=== PATIENT | male | born 1975 | race Caucasian/White ===

== ENCOUNTER → 2022-02-15 | Outpatient (CLI) | payer MEDICARE, SELFPAY ==
[2022-02-15 17:43] LABS: Amphetamine Urine VISTA NEGATIVE (<1000 ng/mL); Barbiturate Urine VISTA NEGATIVE (< 200 ng/mL); Benzodiazepine Urine VISTA NEGATIVE (< 200 ng/mL); Cocaine Urine VISTA NEGATIVE (< 300 ng/mL); Ecstacy Urine VISTA NEGATIVE (< 500 ng/mL); Methadone Urine VISTA NEGATIVE (< 300 ng/mL); PCP Urine VISTA NEGATIVE (< 25 ng/mL); THC Urine VISTA NEGATIVE (< 50 ng/mL); Vista UDS pH Range 7
== END | disposition home or self-care (01) ==
PROVIDERS: PCP Family Medicine; Visit Provider Anesthesiology Pain Medicine
DX: F11.20 Opioid dependence, uncomplicated (principal)
CPT/HCPCS: 80307

== ENCOUNTER → 2022-10-30 | Outpatient (CLI) | payer MEDICARE, SELFPAY ==
[2022-10-30 17:54] LABS: Amphetamine Urine VISTA NEGATIVE (<1000 ng/mL); Barbiturate Urine VISTA NEGATIVE (< 200 ng/mL); Benzodiazepine Urine VISTA NEGATIVE (< 200 ng/mL); Cocaine Urine VISTA NEGATIVE (< 300 ng/mL); Ecstacy Urine VISTA NEGATIVE (< 500 ng/mL); Methadone Urine VISTA NEGATIVE (< 300 ng/mL); PCP Urine VISTA NEGATIVE (< 25 ng/mL); THC Urine VISTA NEGATIVE (< 50 ng/mL); Vista UDS pH Range 4
== END | disposition home or self-care (01) ==
PROVIDERS: PCP Family Medicine; Referring Provider Anesthesiology Pain Medicine; Visit Provider Anesthesiology Pain Medicine
DX: F11.20 Opioid dependence, uncomplicated (principal)
CPT/HCPCS: 80307

== ENCOUNTER → 2024-01-31 | Outpatient (CLI) | payer MEDICARE, SELFPAY ==
[2024-01-31 19:03] LABS: Amphetamine Urine VISTA NEGATIVE (<1000 ng/mL); Barbiturate Urine VISTA NEGATIVE (< 200 ng/mL); Benzodiazepine Urine VISTA NEGATIVE (< 200 ng/mL); Cocaine Urine VISTA NEGATIVE (< 300 ng/mL); Ecstacy Urine VISTA NEGATIVE (< 500 ng/mL); Methadone Urine VISTA NEGATIVE (< 300 ng/mL); PCP Urine VISTA NEGATIVE (< 25 ng/mL); THC Urine VISTA NEGATIVE (< 50 ng/mL); Vista UDS pH Range 6
== END | disposition home or self-care (01) ==
PROVIDERS: PCP Family Medicine; Referring Provider Anesthesiology Pain Medicine; Visit Provider Anesthesiology Pain Medicine
DX: F11.20 Opioid dependence, uncomplicated (principal)
CPT/HCPCS: 80307

== ENCOUNTER 2025-06-01 15:15 | Outpatient (RCR) | payer MEDICARE, MEDICAID, SELFPAY ==
[2025-05-11 14:23] VITALS: BP 144/97; PULSE 106; RESP 18; TEMP 36.1
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
--- NOTE | 2025-05-13 09:39 | WC ---
PHOTO-COCCYX 05/11/25
--- NOTE | 2025-05-13 09:41 | WC ---
PHOTO-RIGHT ISCHIUM 05/11/25
[2025-06-01 15:22] VITALS: BP 120/89; PULSE 98; RESP 18; TEMP 36.3
[2025-06-01 17:26] LABS: Hematocrit 29.2 % (40-54); Hemoglobin 9.1 g/dL (13.0-16.5); Immature Granulocytes Count 0.040 X10^3/uL (0.0-0.0); Mean Corp Hgb Conc 31.2 g/dL (32-36); Mean Corpuscular Volume 75.8 fL (80-94); Mean Platelet Vol. 10.7 fl (6.2-12.0); NRBC Flagged by Analyzer 0 % (0-5); Platelet Count 603 K/mm3 (150-450); RBC Distribution Width CV 17.1 % (11.6-14.6); RBC Distribution Width SD 46.6 fl (35.1-43.9); Red Blood Count 3.85 M/mm3 (4.6-6.2); White Blood Count 9.8 K/mm3 (4.4-11.0)
[2025-06-01 18:26] LABS: AST(SGOT) 39 U/L (<=37); Alanine Aminotransfer ALT/SGPT 51 U/L (<=46); Albumin, Serum 3.4 g/dL (3.5-5.0); Alkaline Phosphatase 108 U/L (40-129); Anion Gap 14 (5-15); BUN 9 mg/dL (4-19); BUN/Creat Ratio 13.6 RATIO (10-20); Calcium,Total 8.6 mg/dL (7.6-11.0); Carbon Dioxide 21.7 mmol/L (21.0-32.0); Chloride 106 mmol/L (98-108); Estimated Creatinine Clearance 13.62 ml/min (50-250); Globulin 4.8 g/dL (2.2-4.2); Glucose 115 mg/dL (70-99); Potassium 4.4 mmol/L (3.3-5.1)
--- NOTE | 2025-06-02 13:31 | WC ---
Per Dr Alejandro, patient is to be notified that his blood work is good and that patient needs to notify PCP for medical clearance for surgery and then Dr Alejandro will get him on the surgical schedule. Patient notified and was thrilled to hear this. He verbalized understanding and will call the PCP office. Advised him if he has any further questions, to call our office.
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
[2025-06-03 07:07] LABS: Prealbumin 12 mg/dL (10-36)
== END 2025-06-02 23:59 | disposition home or self-care (01) ==
LOC: WC 15:15
PROVIDERS: PCP Internal Medicine; Referring Provider Internal Medicine; Visit Provider Surgery Plastic and Reconstructive Surgery
DX: L89.154 Pressure ulcer of sacral region, stage 4 (principal); L89.214 Pressure ulcer of right hip, stage 4; G82.20 Paraplegia, unspecified; D63.8 Anemia in other chronic diseases classified elsewhere
CPT/HCPCS: 36415; 80053; 83036; 84134; 85025; 99214; G0463

== ENCOUNTER → 2025-06-04 | Outpatient (CLI) | payer MEDICARE, MEDICAID, SELFPAY ==
[2025-06-04 16:10] LABS: Barbiturate Urine NEGATIVE (< 200 ng/mL); Benzodiazepine Urine NEGATIVE (< 200 ng/mL); PCP Urine NEGATIVE (< 25 ng/mL); THC Urine PRESUMPTIVE POSITIVE (< 50 ng/mL)
== END | disposition home or self-care (01) ==
LOC: LAB 14:55
PROVIDERS: PCP Internal Medicine; Referring Provider Anesthesiology Pain Medicine; Visit Provider Anesthesiology Pain Medicine
DX: F11.20 Opioid dependence, uncomplicated (principal)
CPT/HCPCS: 80307

== ENCOUNTER 2025-06-08 14:21 | Outpatient (RCR) | payer MEDICARE, MEDICAID, SELFPAY ==
[2025-06-08 14:59] VITALS: BP 138/118; PULSE 108; RESP 16; TEMP 36.1
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
--- NOTE | 2025-06-09 11:23 | WC ---
PHOTO-RIGHT ISCHIUM 06/08/25
--- NOTE | 2025-06-09 11:26 | WC ---
PHOTO-COCCYX 06/08/25
== END 2025-07-03 23:59 | disposition home or self-care (01) ==
LOC: WC 14:21
PROVIDERS: PCP Internal Medicine; Referring Provider Internal Medicine; Visit Provider Surgery Plastic and Reconstructive Surgery
DX: L89.304 Pressure ulcer of unspecified buttock, stage 4 (principal); G82.20 Paraplegia, unspecified; L98.429 Non-pressure chronic ulcer of back with unspecified severity; D63.8 Anemia in other chronic diseases classified elsewhere
CPT/HCPCS: 99213; G0463

== ENCOUNTER 2025-07-06 08:02 | Inpatient (IN) | payer MEDICARE, MEDICAID, SELFPAY ==
--- NOTE | 2025-06-26 16:54 | PAT.ANESEVAL ---
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 When Was Last Pacemaker Check QUESTION #4 FULL TEXT: You/Your Family Experience fever (hyperthermia) with Anesthesia Last Oral Intake Last Oral intake: Last Oral Intake NPO since Meds taken in AM with sips of water? Meds patient instructed to take am of surgery PONV PONV - correctional lieutenant: PONV - correctional lieutenant Female No 06/26/25 09:09 HX of Motion Sickness Yes 06/26/25 09:09 HX of N/V After Surgery Yes 06/26/25 09:09 Non-Smoker Yes 06/26/25 09:09 Duration of Surgery greater Yes 06/26/25 09:09 than 60 minutes Number of Risk Factors 4 06/26/25 09:09 PONV Score Severe Risk 06/26/25 09:09 Height & Weight Height & Weight: Anesthesia: Height & Weight Height 5 ft 9 in 05/11/25 14:23 Respiratory Assessment Respiratory Assessment - correctional lieutenant: Respiratory Tract Infection Hx - correctional lieutenant Hx Respiratory Tract Infection No 06/26/25 09:09 STOP Sleep Apnea STOP Sleep Apnea - correctional lieutenant: STOP Sleep Apnea - correctional lieutenant Hx Hypertension Yes: PER PT, CONTROLLED ON 06/26/25 09:09 MED Hx Sleep Apnea No 06/26/25 09:09 CPAP BIPAP Do you snore loudly (louder Yes 06/26/25 09:09 than talking or can be heard Do you often feel tired/ No 06/26/25 09:09 fatigued/ sleepy during daytime? Has anyone observed you stop No 06/26/25 09:09 breathing during sleep? STOP Results Positive 06/26/25 09:09 QUESTION #5 FULL TEXT : Do you snore loudly (louder than talking or can be heard through closed doors)? 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 Specify any problems Hx of Preganancy in last 3 N/A 06/26/25 09:09 Months Nurse Filling Out Transfusion MGRIFFITH 06/26/25 09:09 & Questions: Date: 06/26/25 06/26/25 09:09 Time: 09:15 06/26/25 09:09 Patient unable to answer at this time (ie. confused, unrespo /Reproduction History /Reproductive History - correctional lieutenant: /Reproductive Hx- correctional lieutenant Hx Now Gestational Age (in weeks): EDC: Hx Hx Para Hx Section SAB PFSH Medical History (Updated 06/26/25 @ 09:23 by Mary Ann Lopez) Wears glasses History of Clostridium difficile infection Uses wheelchair Indwelling urethral catheter present Injury of back History of seizures Gastric reflux Non-smoker Hypertension Home Medications ?Medication ?Instructions ?Recorded ?Last Taken ?Type baclofen 20 mg tablet 20 mg PO 4X/DAY 05/11/25 Unknown History gabapentin 600 mg tablet 1,200 mg PO TID 05/11/25 Unknown History hydroxyzine HCl 25 mg tablet 50 mg PO 4X/DAY PRN PRN anxiety 05/11/25 Unknown History oxycodone myristate 13.5 mg 13.5 mg PO Q12H pain 05/11/25 Unknown History capsule sprinkle extend release 12hr(DON'T CRUSH) (Xtampza ER) verapamil 120 mg tablet 120 mg PO DAILY 06/26/25 Unknown History Allergy/AdvReac Type Severity Reaction Status Date / Time adhesive tape Allergy Other Verified 06/26/25 09:03 morphine Allergy Other Verified 06/26/25 09:03 venlafaxine (From Effexor) Allergy Other Verified 06/26/25 09:03 Surgical History (Updated 06/26/25 @ 09:09 by Mary Ann Lopez) History of surgery History of tonsillectomy and adenoidectomy History of appendectomy History of spinal surgery History of amputation of right foot Social History Smoking Status: Never smoker Audit: Pertinent Findings Pertinent Findings Additional pertinent findings: June 01, 2025. Hemoglobin 9.1. Recommendation Anesthesia Recommendation Anesthesia recommendation: OPTIMIZED for anesthesia
[2025-07-02 14:06] LABS: Hematocrit 32.0 % (40-54); Hemoglobin 9.9 g/dL (13.0-16.5); Mean Corp Hgb Conc 30.9 g/dL (32-36); Mean Corpuscular Volume 76.6 fL (80-94); Mean Platelet Vol. 9.9 fl (6.2-12.0); Platelet Count 704 K/mm3 (150-450); RBC Distribution Width CV 19.1 % (11.6-14.6); RBC Distribution Width SD 52.3 fl (35.1-43.9); Red Blood Count 4.18 M/mm3 (4.6-6.2); White Blood Count 11.1 K/mm3 (4.4-11.0)
[2025-07-02 14:46] LABS: AST(SGOT) 20 U/L (<=37); Alanine Aminotransfer ALT/SGPT 21 U/L (<=46); Albumin, Serum 3.1 g/dL (3.5-5.0); Alkaline Phosphatase 103 U/L (40-129); Anion Gap 14 (5-15); BUN 10 mg/dL (4-19); BUN/Creat Ratio 12.8 RATIO (10-20); Calcium,Total 9.1 mg/dL (7.6-11.0); Carbon Dioxide 21.5 mmol/L (21.0-32.0); Chloride 100 mmol/L (98-108); Globulin 5.0 g/dL (2.2-4.2); Glucose 131 mg/dL (70-99); Potassium 3.3 mmol/L (3.3-5.1)
[2025-07-06] VITALS (18 sets, daily range): BP systolic 94–171; BP diastolic 73–119; PULSE 75–100; RESP 16–17; TEMP 35.8–37.4; O2SAT 93–100; BMI 25.8
--- NOTE | 2025-07-06 08:48 | PRE.ANES_ITS ---
ASA Classification* ASA Classification ASA Classification: 3 Assessment & Plan Anesthesia* Anesthesia Assessment Anesthesia Assessment: Discussed sedation and/or anesthesia options, risks, benefits, and alternatives with patient/parents/legal guardian/POA. Questions invited. The patient/parents/legal guardian/POA seems to understand and agrees to proceed with anesthesia plan. Reviewed the physical assessment, medical history, allergy history and patient home medications list prior to surgery/procedure/anesthetic and documented any changes. Performed airway and anesthesia risk assessments. Anesthesia Type Anesthesia Type: General (no sux. paraplegia) Anesthesia Focused Assessment* Airway Assessment Mouth opens: >3 cm Mallampati Score: II Labs Anesthesia Preop lab: CBC WBC, (4.4-11.0) 11.1 K/mm3 H 07/02/25, 13:31 RBC, (4.6-6.2) 4.18 M/mm3 L 07/02/25, 13:31 Hgb, (13.0-16.5) 9.9 g/dL L 07/02/25, 13:31 Hct, (40-54) 32.0 % L 07/02/25, 13:31 Plt Count, (150-450) 704 K/mm3 H 07/02/25, 13:31 CHEMISTRY Potassium, (3.3-5.1) 3.3 mmol/L 07/02/25, 13:31 Sodium, (133-145) 136 mmol/L 07/02/25, 13:31 BUN, (4-19) 10 mg/dL 07/02/25, 13:31 Creatinine, (0.70-1.20) 0.75 mg/dL 07/02/25, 13:31 Glucose, (70-99) 131 mg/dL H 07/02/25, 13:31 COAG Pre-Assessment Diagnosis/Proposed Procedure Planned Operative Procedure(s): (N/A) Debridement of sacral and right ischial wound with wound vac placement, Stage 1 Anesthesia History 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 When Was Last Pacemaker Check QUESTION #4 FULL TEXT: You/Your Family Experience fever (hyperthermia) with Anesthesia Last Oral Intake Last Oral intake: Last Oral Intake NPO since Meds taken in AM with sips of water? Meds patient instructed to take am of surgery PONV PONV - machine cloth trimmer: PONV - machine cloth trimmer Female No 06/26/25 09:09 HX of Motion Sickness Yes 06/26/25 09:09 HX of N/V After Surgery Yes 06/26/25 09:09 Non-Smoker Yes 06/26/25 09:09 Duration of Surgery greater Yes 06/26/25 09:09 than 60 minutes Number of Risk Factors 4 06/26/25 09:09 PONV Score Severe Risk 06/26/25 09:09 Height & Weight Height & Weight: Anesthesia: Height & Weight Height 5 ft 9 in 05/11/25 14:23 Respiratory Assessment Respiratory Assessment - machine cloth trimmer: Respiratory Tract Infection Hx - machine cloth trimmer Hx Respiratory Tract Infection No 06/26/25 09:09 STOP Sleep Apnea STOP Sleep Apnea - machine cloth trimmer: STOP Sleep Apnea - machine cloth trimmer Hx Hypertension Yes: PER PT, CONTROLLED ON 06/26/25 09:09 MED Hx Sleep Apnea No 06/26/25 09:09 CPAP BIPAP Do you snore loudly (louder Yes 06/26/25 09:09 than talking or can be heard Do you often feel tired/ No 06/26/25 09:09 fatigued/ sleepy during daytime? Has anyone observed you stop No 06/26/25 09:09 breathing during sleep? STOP Results Positive 06/26/25 09:09 QUESTION #5 FULL TEXT : Do you snore loudly (louder than talking or can be heard through closed doors)? 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 Specify any problems Hx of Preganancy in last 3 N/A 06/26/25 09:09 Months Nurse Filling Out Transfusion MGRIFFITH 06/26/25 09:09 & Questions: Date: 06/26/25 06/26/25 09:09 Time: 09:15 06/26/25 09:09 Patient unable to answer at this time (ie. confused, unrespo /Reproduction History /Reproductive History - machine cloth trimmer: /Reproductive Hx- machine cloth trimmer Hx Now Gestational Age (in weeks): EDC: Hx Hx Para Hx Section SAB Active Medications Active Medications: Current Medications Generic Name Dose Route Start Last Admin Trade Name Freq PRN Reason Stop Dose Admin Enoxaparin Sodium 40 mg 07/06/25 10:00 Enoxaparin 40 Mg/0.4 Ml Syringe SC DAILY [facility] Cefazolin Sodium 2 gm/ Sodium 110 mls @ 200 mls/hr 07/06/25 10:30 Chloride IV 07/06/25 11:02 INTRAOP ONE Lactated Ringer's 1,000 mls @ 15 mls/hr 07/06/25 08:45 IV .Q48H DULCE PFSH Medical History Wears glasses History of Clostridium difficile infection Uses wheelchair Indwelling urethral catheter present Injury of back History of seizures Gastric reflux Non-smoker Hypertension Home Medications ?Medication ?Instructions ?Recorded ?Last Taken ?Type baclofen 20 mg tablet 20 mg PO 4X/DAY 05/11/25 Unk nown History gabapentin 600 mg tablet 1,200 mg PO TID 05/11/25 Unk nown History hydroxyzine HCl 25 mg tablet 50 mg PO 4X/DAY PRN PRN a nxiety 05/11/25 Unknown History oxycodone myristate 13.5 mg 13.5 mg PO Q12H pain 05/11 Unknown History capsule sprinkle extend release 12hr(DON'T CRUSH) (Xtampza ER) verapamil 120 mg tablet 120 mg PO DAILY 06/26/25 Unk nown History Allergy/AdvReac Type Severity Reaction Status Date / Time adhesive tape Allergy Other Verified 06/26/25 09:03 morphine Allergy Other Verified 06/26/25 09:03 venlafaxine (From Effexor) Allergy Other Verified 06/26/25 09:03 Surgical History History of surgery History of tonsillectomy and adenoidectomy History of appendectomy History of spinal surgery History of amputation of right foot Social History Smoking Status: Never smoker Review of Systems (Anesthesia) ROS Narrative System reviewed and no additional complaints, except as documented.
[2025-07-06] MEDS: Lactated Ringers 1,000 ML 15 ML IV (09:19)
--- NOTE | 2025-07-06 09:43 | HP.PCM_ITS ---
HPI - General HPI Narrative LUCIANA POWELL, is a 49 M who presents with right ischial wound and sacral wounds, stage 4. Current Encounter (DATE OF SURGERY H&P UPDATE): I saw and examined the patient this morning in pre-operative holding. We discussed risks and benefits of today's surgery and they would like to proceed. NO CHANGE in health history since last seen and evaluated. Ready to proceed with surgery. I reviewed MRI, osteo at both sites. FORMERLY [facility] Medical History Wears glasses History of Clostridium difficile infection Uses wheelchair Indwelling urethral catheter present Injury of back History of seizures Gastric reflux Non-smoker Hypertension Home Medications ?Medication ?Instructions ?Recorded ?Last Taken ?Type baclofen 20 mg tablet 20 mg PO 4X/DAY 05/11/25 Unk nown History gabapentin 600 mg tablet 1,200 mg PO TID 05/11/25 Unk nown History hydroxyzine HCl 25 mg tablet 50 mg PO 4X/DAY PRN PRN a nxiety 05/11/25 Unknown History oxycodone myristate 13.5 mg 13.5 mg PO Q12H pain 05/11 Unknown History capsule sprinkle extend release 12hr(DON'T CRUSH) (Xtampza ER) verapamil 120 mg tablet 120 mg PO DAILY 06/26/25 Unk nown History Allergy/AdvReac Type Severity Reaction Status Date / Time adhesive tape Allergy Other Verified 06/26/25 09:03 morphine Allergy Other Verified 06/26/25 09:03 venlafaxine (From Effexor) Allergy Other Verified 06/26/25 09:03 Surgical History History of surgery History of tonsillectomy and adenoidectomy History of appendectomy History of spinal surgery History of amputation of right foot Social History Smoking Status: Never smoker Vital Signs Vital Signs Vital Signs: 07/06/25 09:11 07/06/25 09:11 Temperature 97.3 F L Temperature Source Temporal Pulse Rate 99 Respiratory Rate 16 Respiratory Pattern Normal Blood Pressure 116/82 H Blood Pressure Mean 93 Blood Pressure Source Monitor Blood Pressure Position Semi-Fowlers Blood Pressure Location Right Arm Pulse Ox 99 Oxygen Delivery Method Room Air Weight Weight: 175 lb Body Mass Index (BMI) 25.8 Physical Exam Narrative Sacral wound and right ischial wounds , stage 4 Results Lab / Micro Data 07/02/25 13:31 07/02/25 13:31 Assessment & Plan Assessment/Plan (1) Decubitus ulcer of ischial area, stage 4: (2) Ulcer of sacral region, stage 4: PLAN: Plan I talked to the patient extensively about the risks of surgery, including bleeding, infection, damage to surrounding structures, poor scaring, surgical site dehiscence and wound formation, need for wound care, need for repeat operations, failure to obtain the desired result, DVT/PE, and the risks of anesthesia including , including stroke (from low blood pressure/ischemia or clot). The benefits and alternatives of this surgery were also discussed. All of their questions were answered, and they agreed to proceed with surgery. Plan for debridement with VAC placement
[2025-07-06] MEDS: Midazolam 2 MG/2 ML Syringe IV (09:51)
[2025-07-06] MEDS: Cefazolin 1 GM/5 ML Vial 2 GM IV (09:51)
[2025-07-06] MEDS: Lactated Ringers 1,000 ML 1000 ML IV (09:51)
[2025-07-06] MEDS: Lidocaine 1% (5 ml sdv) 5 ML Vial 8 ML IV (09:55)
--- NOTE | 2025-07-06 10:13 | OP.PCM_ITS ---
Operative Report (Standard) Operative Information Date of Procedure: 07/06/25 Pre-Operative Diagnosis: Sacral ulcer stage IV Right ischial ulcer stage IV Post-Operative Diagnosis: Same Surgery/Procedure Performed: Excision sacral ulcer stage IV, down to bone, 4 x 8 cm Excision right ischial ulcer, down to bone, stage IV, 4 x 3 cm Placement of irrigating wound VAC over the above-noted wounds mobile home technician: Yes Computer Security Specialist: Kati Bernardo Tasks completed by case management assistant: Retracting Type of Anesthesia: General/Supplemental (30 cc of 50-50 mixture 1% lidocaine with 1-200,000 epinephrine and quarter percent Marcaine with 1-200,000 epinephrine) RN Documented Start/Stop Times: Operation Date: 07/08/25 11:15 <No data on this case meets the specified criteria> Procedure Start Time: 10:23 Procedure Stop Time: 11:29 Select all DRAINS/GRAFTS/IMPLANTS that apply: None Estimated Blood Loss: 50 cc Specimen collected: Yes Description of specimen(s) removed: Sacral ulcer for pa thology, sacral deep soft tissue cultures, sacral bone culture, sacral bone for pathology Right ischial ulcer for pathology, right ischial deep soft tissue cultures, right ischial bone culture, right ischial bone for pathology Description of surgery: Indications: Patient is a 49-year-old male with paraplegia who has a right ischial stage IV wound and a sacral stage IV wound from pressure. He has been optimized medically and is ready for surgery. I talked him about the risks, benefits, and alternatives to debridement and placement of wound. Procedure details: Patient was correctly identified in preoperative holding and taken back to the operating room he was administered general anesthesia and flipped into the prone position where he was carefully padded and positioned with care taken to prevent pressure sores or injury to nerves or the face. A timeout was performed. He was prepped and draped in sterile fashion. Methylene blue was used to dye the wound beds. The above-noted local solution was injected and given time to take effect. 10 blade scalpel was used to excise around the wounds and a rongeur was used to debride the base of the wounds. The sacral wound undermining was accessed through a previous rotation flap incision scar on the right side, with plan to re-elevate that flap for reconstruction at the next stage. The wounds were sent for pathology. Deep soft tissue cultures were taken with clean rongeur, as well as bone cultures and bone pathology with a clean rongeur. The total debridement with the tools was 8 x 8 cm for the sacral and and 4 x 3 cm for the right ischial wound. Both wounds were down to bone. The wounds were then irrigated with copious amounts normal saline and Irrisept. Hemostasis was obtained with Bovie electrocautery. An irrigating wound VAC was applied. Postoperative plan: Patient will be admitted for infectious disease consultation and empiric IV antibiotics. We will follow-up wound cultures and curtail antibiotics as needed. He will be on a pressure offloading bed. Plan for return to the operating room in 2 days for closure of the wounds (08 July 2025). Surgical Findings: Both wounds down to bone with necrotic bone at the base Complications Complications: No
[2025-07-06] MEDS: fentaNYL 100 MCG/2 ML Ampul IV (10:19)
[2025-07-06] MEDS: Bupiv/Epi 0.25% 30 ML Vial (10:23)
[2025-07-06] MEDS: Lidocaine 1% /Epi 1:100 (20ml) 20 ML Vial (10:23)
--- NOTE | 2025-07-06 10:30 | PRES_PTH ---
PATIENT: LUCIANA POWELL LOC: MS3 U#:[id number] AGE/SX: 49/M [place] [facility] [place]: Dr. Brennan Vila MD : 1975 BED: 1 DIS: 07/14/2025 SPEC #: [id number] RECD: 07/06/25 12:24 STATUS: SOY KHALIDA #: [id number] HERNANDEZ: 07/06/25 10:[address]: Helio Alejandro DEPT: SURGICAL PATHOLOGY RECD BY: Dixon Elder ENTERED: 07/06/25 13:43 SP TYPE: PRESS SORE OTHR DR: DO Dr. Brennan Ratliff MD PRIYANKA SAHNI, MD Tissues: A - Sacral region B - Sacrum, NOS C - Ischium, NOS D - Ischium, NOS Procedures: Decalcification bone/plaque Surgery Specimen Level IV HEADER OPERATION: Debridement of sacral and right ischial wound with wound vac PRE-OP DIAGNOSIS: Decubitus ulcer of ischial area, stage 4, ulcer of sacral region, stage 4 TISSUE SUBMITTED: A- Sacral wound tissue, B- Sacral wound bone, C- Right ischial wound tissue, D- Right ischial wound bone MICROSCOPIC DIAGNOSIS A. Skin and soft tissue, sacral wound tissue, debridement: - Denuded epidermis with underlying fibrotic granulation tissue with acute inflammation, consistent with a decubitus B. Bone, sacral wound, debridement: * Periosteal soft tissue with focal chronic inflammation with underlying woven reactive bone trabeculae C. Right ischial wound tissue, debridement: - Denuded epidermis with underlying fibrotic granulation tissue with acute inflammation, consistent with a decubitus D. Right ischial wound bone, debridement: * Fibrotic periosteal fibrous tissue with underlying woven reactive bone trabeculae MICROSCOPIC DESCRIPTION Slides are reviewed. GROSS DESCRIPTION Received in 4 formalin containers labeled with the patient's name and date of . Designated as: A. Sacral wound tissue are 2 irregular perez to sosa, nodular to wrinkled and focally cauterized portions of apparent skin with blue dye discoloration throughout, measuring 9.4 x 8.5 x 3.2 cm in aggregate. Sectioning reveals perez-white to yellow, diffusely fibrotic cut surfaces. Gear Lapper sections are submitted in 1 cassette. B. Sacral wound bone is a 0.6 x 0.4 x 0.3 cm pink-perez red irregular bone fragment. Entirely submitted in 1 cassette, following decalcification. C. Right ischial wound tissue are multiple irregular perez to sosa, nodular to wrinkled and focally cauterized portions of apparent skin with blue dye discoloration throughout, measuring 7.5 x 4.9 x 3.3 cm in aggregate. Sectioning reveals perez-white to yellow, diffusely fibrotic cut surfaces. Gear Lapper sections are submitted in 1 cassette. D. Right ischial wound bone are 2 irregular perez-pink to red bone fragments, 0.4 x 0.3 x 0.2 cm and one 0.6 x 0.4 x 0.3 cm. Entirely submitted in 1 cassette, following decalcification. MD 07/06/2025 CPT:[id number]
--- NOTE | 2025-07-06 11:52 | PCM.POST.ANE ---
Anesthesia: Postop Eval I Current Vital Signs Temperature: 97.9 F Pulse Rate: 91 Blood Pressure: 161/94 Respiratory Rate: 16 Pulse Ox: 97 Assessment Airway patent: Yes Spontaneous unlabored respirations: Yes nausea: No Vomiting: No Anesthesia Complication: No Fluid Hydration Crystalloid volume administer (ml): 1,000 Total IV fluid infused: 1,000 Progress Note Anesthesia document: Postop Eval 1 completed: Yes
--- NOTE | 2025-07-06 12:35 | POSTOPAN2_ITS ---
Anesthesia Postop Eval I Sum Postop Eval Completion status Anesthesia document: Postop Eval 1 completed: Yes Anesthesia Postop Eval I Summary Anesthesia Postop Eval I Summary: Anesthesia Postop Eval I: Assessment Summary Airway patent Yes 07/06/25 11:52 MACHINE SET UP OPERATOR PAPER GOODS.TNES Spontaneous unlabored Yes 07/06/25 11:52 MACHINE SET UP OPERATOR PAPER GOODS.TNES respirations Mental status nausea No 07/06/25 11:52 MACHINE SET UP OPERATOR PAPER GOODS.TNES Vomiting No 07/06/25 11:52 MACHINE SET UP OPERATOR PAPER GOODS.TNES Anesthesia Postop Eval I: Fluid Summary Crystalloid volume administer 1,000 07/06/25 11:52 MACHINE SET UP OPERATOR PAPER GOODS.TNES (ml) Colloids volume administered ( ml) Blood Product volume administered (ml) Total IV fluid infused 1,000 07/06/25 11:52 MACHINE SET UP OPERATOR PAPER GOODS.TNES Anesthesia Postop Eval I: Summary Notes Anesthesia Complication No 07/06/25 11:52 MACHINE SET UP OPERATOR PAPER GOODS.TNES Anesthesia Complication Comment: Post-operative progress note Anesthesia: Postop Eval II Evaluation Mental status: Awake Pain Level: 0 nausea: No Vomiting: No
--- NOTE | 2025-07-06 12:35 | PCM.POSTANE2 ---
Anesthesia Postop Eval I Sum Postop Eval Completion status Anesthesia document: Postop Eval 1 completed: Yes Anesthesia Postop Eval I Summary Anesthesia Postop Eval I Summary: Anesthesia Postop Eval I: Assessment Summary Airway patent Yes 07/06/25 11:52 PRINT PROJECT MANAGER.TNES Spontaneous unlabored Yes 07/06/25 11:52 PRINT PROJECT MANAGER.TNES respirations Mental status nausea No 07/06/25 11:52 PRINT PROJECT MANAGER.TNES Vomiting No 07/06/25 11:52 PRINT PROJECT MANAGER.TNES Anesthesia Postop Eval I: Fluid Summary Crystalloid volume administer 1,000 07/06/25 11:52 PRINT PROJECT MANAGER.TNES (ml) Colloids volume administered ( ml) Blood Product volume administered (ml) Total IV fluid infused 1,000 07/06/25 11:52 PRINT PROJECT MANAGER.TNES Anesthesia Postop Eval I: Summary Notes Anesthesia Complication No 07/06/25 11:52 PRINT PROJECT MANAGER.TNES Anesthesia Complication Comment: Post-operative progress note Anesthesia: Postop Eval II Evaluation Mental status: Awake Pain Level: 0 nausea: No Vomiting: No
--- NOTE | 2025-07-06 16:01 | PCM.PN.HOSP ---
Subjective Subjective Consult requested by Dr. Alejandro for postoperative medical management Patient is seen in the PACU and is resting comfortably. Does not awake to voice nor noxious stimuli does. Does appear to be comfortable. Objective Data Objective Data Vital Signs: Vital Signs Temp Pulse Resp BP Pulse Ox O2 Del Method 36.2 C L 75 16 131/98 H 93 Room Air 07/06/25 15:31 07/06/25 15:31 07/06/25 15:31 07/06/25 15:31 07/06/25 15:31 07/06/25 15:31 Oxygen Delivery Method Room Air Weight: 79.379 kg Body Mass Index (BMI) 25.8 Intake & Output: Intake and Output for Last 24 Hours 07/04/25 07/05/25 07/06/25 23:59 22:59 23:59 Output Total 550 / 550 Balance -550 / -550 Lab / Micro Data 07/02/25 13:31 07/02/25 13:31 Micro: Microbiology 07/06/25 10:33 Tissue Ulcer - Sacral Pressure Sore Gram Stain - Final 07/06/25 10:36 Bone - Sacral Bone Gram Stain - Final 07/06/25 10:37 Tissue Ulcer - Ischial Pressure Sore Gram Stain - Final 07/06/25 10:40 Bone - Ischial Bone Gram Stain - Final Physical Exam Const no apparent distress Constitutional Narrative: Sleeping. Earbuds are in. Does not awake to voice. HEENT head/scalp atraumatic and moist oral mucous membranes Resp normal respiratory effort, no retractions, no use of accessory muscles and clear to auscultation bilaterally Cardio regular rate, regular rhythm, S1 normal heart sound and S2 normal heart sound GI normal to inspection, nondistended, normoactive bowel sounds, soft to palpation, non-tender and non-distended Extremity normal to inspection and full ROM Extremity Narrative: Status post right ankle amputation stump appears to be clean and intact. Neuro Sensorium / Orientation: awake and alert Assessment & Plan Assessment/Plan (1) Decubitus ulcer of ischial area, stage 4: PLAN: Status post excision of stage IV ulcer down to bone form 8 cm. Excision of right ischial ulcer down to the bone stage IV 4 to 3 cm. Placement of irrigating wound VAC over the wounds. Management per plastics. PLAN: Plan Paraplegia: Complicates care and recovery. Hypertension: Continue verapamil Chronic Avalos. Patient has Avalos catheter change intermittently. Apparently the bulb of the catheter is not within the urethra. Dr. Alejandro reached out to urology who advised for the patient to follow-up with his regular urologist as outpatient as this was placed as outpatient.. The catheter is draining fine so we will leave it as is for now but if it does become obstructed then that will either need to be replaced or urology will need to be formally consulted. VTE prophylaxis with enoxaparin Thank you for the consult. The hospitalist service will follow along during this patient's hospitalization. Charges/Coding Visit Charges Inpatient E&M: 19994 Subs Hosp L2
[2025-07-06 17:49] LABS: Hematocrit 31.9 % (40-54); Hemoglobin 9.6 g/dL (13.0-16.5); Immature Granulocytes Count 0.120 X10^3/uL (0.0-0.0); Mean Corp Hgb Conc 30.1 g/dL (32-36); Mean Corpuscular Volume 77.1 fL (80-94); Mean Platelet Vol. 9.9 fl (6.2-12.0); NRBC Flagged by Analyzer 0 % (0-5); POSITIVE MORPHOLOGY YES; Platelet Count 632 K/mm3 (150-450); RBC Distribution Width CV 19.6 % (11.6-14.6); RBC Distribution Width SD 54.4 fl (35.1-43.9); Red Blood Count 4.14 M/mm3 (4.6-6.2); White Blood Count 11.5 K/mm3 (4.4-11.0)
[2025-07-06] MEDS: Cefazolin 2 GM in 0.9% Normal Saline (100mL Bag) 100 ML IV (18:09)
[2025-07-06] MEDS: HYDROmorphone 0.5 MG/0.5 ML SYRINGE IV ×2 (18:15→23:23)
[2025-07-06] MEDS: 0.9% Saline Lock 10 ML Syringe IV ×2 (18:15→23:23)
[2025-07-06 18:28] LABS: Differential Indicated SCAN CRITERIA MET
[2025-07-06 21:37] LABS: Differential Comment SCANNED
[2025-07-07 03:34] VITALS: BP 124/84; PULSE 75; RESP 18; TEMP 36.6; O2SAT 95
[2025-07-07] MEDS: HYDROmorphone 0.5 MG/0.5 ML SYRINGE IV ×5 (03:38→21:09)
[2025-07-07] MEDS: 0.9% Saline Lock 10 ML Syringe IV (03:38)
[2025-07-07] MEDS: Cefazolin 2 GM in 0.9% Normal Saline (100mL Bag) 100 ML IV ×4 (06:05→21:21)
--- NOTE | 2025-07-07 06:36 | WOUNDNOTE ---
Pt on low air loss mattress
[2025-07-07 07:23] LABS: Hematocrit 29.3 % (40-54); Hemoglobin 9.0 g/dL (13.0-16.5); Immature Granulocytes Count 0.060 X10^3/uL (0.0-0.0); Mean Corp Hgb Conc 30.7 g/dL (32-36); Mean Corpuscular Volume 76.1 fL (80-94); Mean Platelet Vol. 9.7 fl (6.2-12.0); NRBC Flagged by Analyzer 0 % (0-5); Platelet Count 625 K/mm3 (150-450); RBC Distribution Width CV 19.7 % (11.6-14.6); RBC Distribution Width SD 54.4 fl (35.1-43.9); Red Blood Count 3.85 M/mm3 (4.6-6.2); White Blood Count 11.1 K/mm3 (4.4-11.0)
[2025-07-07 08:20] LABS: Magnesium 2.1 mg/dL (1.5-2.2)
[2025-07-07 08:24] LABS: AST(SGOT) 30 U/L (<=37); Alanine Aminotransfer ALT/SGPT 22 U/L (<=46); Albumin, Serum 2.7 g/dL (3.5-5.0); Alkaline Phosphatase 84 U/L (40-129); Anion Gap 11 (5-15); BUN 16 mg/dL (4-19); BUN/Creat Ratio 23.7 RATIO (10-20); Calcium,Total 8.6 mg/dL (7.6-11.0); Carbon Dioxide 22.8 mmol/L (21.0-32.0); Chloride 106 mmol/L (98-108); Estimated Creatinine Clearance 126.66 ml/min (50-250); Globulin 4.8 g/dL (2.2-4.2); Glucose 135 mg/dL (70-99); Potassium 4.3 mmol/L (3.3-5.1)
[2025-07-07 08:59] VITALS: BP 146/98; PULSE 71; RESP 16; TEMP 36.5; O2SAT 96
--- NOTE | 2025-07-07 09:35 | PN.HOSP_ITS ---
Subjective Subjective Complaining of spasms in his legs that are more intense than what he has at home. States that he gets this way after having procedures or surgeries when in the hospital. States that the hydromorphone helps but does not last long enough. States at home he takes scheduled oxycodone, gabapentin and baclofen which help but are not sufficient while he is here. Objective Data Objective Data Vital Signs: Vital Signs Temp Pulse Resp BP Pulse Ox O2 Del Method 36.5 C L 71 16 146/98 H 96 Room Air 07/07/25 08:59 07/07/25 08:59 07/07/25 08:59 07/07/25 08:59 07/07/25 08:59 07/07/25 08:59 Oxygen Delivery Method Room Air Weight: 79.379 kg Body Mass Index (BMI) 25.8 Intake & Output: Intake and Output for Last 24 Hours 07/05/25 07/06/25 07/07/25 22:59 23:59 23:59 Intake Total 242.5 / 242.5 220 / 220 Output Total 1050 / 1600 1350 / 1350 Balance -807.5 / -1357.5 -1130 / -1130 Lab / Micro Data 07/07/25 06:54 07/07/25 06:54 Labs: Laboratory Results - last 24 hr 07/06/25 17:15: WBC 11.5 H, RBC 4.14 L, Hgb 9.6 L, Hct 31.9 L, MCV 77.1 L, MCH 23.2 L, MCHC 30.1 L, RDW Std Deviation 54.4 H, RDW Coeff of Gila 19.6 H, Plt Count 632 H, MPV 9.9, Immature Gran % (Auto) 1.000 H, Neut % (Auto) 90.5 H, L ymph % (Auto) 7.2 L, Humphreys % (Auto) 0.9, Eos % (Auto) 0.0, Baso % (Auto) 0.4, A bsolute Neuts (auto) 10.4 H, Absolute Lymphs (auto) 0.83, Nucleated RBC % 0, Differential Comment SCANNED, Diff Path Review January, Platelet Estimate [employer] 07/07/25 06:54: WBC 11.1 H, RBC 3.85 L, Hgb 9.0 L, Hct 29.3 L, MCV 76.1 L, MCH 23.4 L, MCHC 30.7 L, RDW Std Deviation 54.4 H, RDW Coeff of Gila 19.7 H, Plt Count 625 H, MPV 9.7, Immature Gran % (Auto) 0.500, Neut % (Auto) 80.2 H, Lymph % (Auto) 12.5 L, Humphreys % (Auto) 6.5, Eos % (Auto) 0.0, Baso % (Auto) 0.3, A bsolute Neuts (auto) 8.9 H, Absolute Lymphs (auto) 1.38, Nucleated RBC % 0, Sodium 141, Potassium 4.3, Chloride 106, Carbon Dioxide 22.8, Anion Gap 11, BUN 16, Creatinine 0.69 L, Estim Creat Clear Calc 126.66, Est GFR (MDRD) Non-Af 112, BUN/Creatinine Ratio 23.7 H, Glucose 135 H, Calcium 8.6, Phosphorus 3.3, Magnesium 2.1, Total Bilirubin 0.21, AST 30, ALT 22, Alkaline Phosphatase 84, Total Protein 7.5, Albumin 2.7 L, Globulin 4.8 H, Albumin/Globulin Ratio 0.6 L Micro: Microbiology 07/06/25 10:40 Bone - Ischial Bone Gram Stain - Final 07/06/25 10:40 Bone - Ischial Bone Wound Culture - Preliminary No growth-Final to follow 07/06/25 10:37 Tissue Ulcer - Ischial Pressure Sore Gram Stain - Final 07/06/25 10:37 Tissue Ulcer - Ischial Pressure Sore Wound Culture - Preliminary Staphylococcus aureus 07/06/25 10:36 Bone - Sacral Bone Gram Stain - Final 07/06/25 10:36 Bone - Sacral Bone Wound Culture - Preliminary No growth-Final to follow 07/06/25 10:33 Tissue Ulcer - Sacral Pressure Sore Gram Stain - Final 07/06/25 10:33 Tissue Ulcer - Sacral Pressure Sore Wound Culture - Preliminary No growth-Final to follow Physical Exam Const alert and no apparent distress Constitutional Narrative: Lying in bed. Awake. Nontoxic. Afebrile. No respiratory distress. No conversational dyspnea. HEENT head/scalp atraumatic and moist oral mucous membranes Assessment & Plan Assessment/Plan (1) Decubitus ulcer of ischial area, stage 4: PLAN: Status post excision of stage IV ulcer down to bone form 8 cm. Excision of right ischial ulcer down to the bone stage IV 4 to 3 cm. Placement of irrigating wound VAC over the wounds. Management per plastics. (2) Leg muscle spasm: PLAN: Continue baclofen, gabapentin, scheduled oxycodone (his home regimen) Will add scheduled acetaminophen. PLAN: Plan Paraplegia: Complicates care and recovery. Hypertension: Continue verapamil Chronic Avalos. Patient has Avalos catheter change intermittently. Apparently the bulb of the catheter is not within the urethra. Dr. Alejandro reached out to urology who advised for the patient to follow-up with his regular urologist as outpatient as this was placed as outpatient.. The catheter is draining fine so we will leave it as is for now but if it does become obstructed then that will either need to be replaced or urology will need to be formally consulted. VTE prophylaxis with enoxaparin Thank you for the consult. The hospitalist service will follow along during this patient's hospitalization. Charges/Coding Visit Charges Inpatient E&M: 48023 [facility] Hosp L1
[2025-07-07] MEDS: Sodium Hypochlorite 473 ML, Sodium Chloride Irrig Solution 473 ML IRRIGATION (09:40)
--- NOTE | 2025-07-07 10:39 | PN.SURG_ITS ---
Subjective Subjective Patient seen this morning with Dr. Alejandro and Chelsea wound RN at bedside. One of the irrigating VAC stopped working and was changed to regular wound VAC and both are holding seals. He reports skin sensitivity around the wound. Objective Data Objective Data General: Denies fever, chills HEENT: Denies headaches, vision changes, sore throat Cardio: Denies chest pain, leg edema Pulmonary: Denies shortness of pain, cough, wheezing GI: Denies nausea, vomiting, diarrhea Vital Signs: Vital Signs Temp Pulse Resp BP Pulse Ox O2 Del Method 97.7 F L 71 16 146/98 H 96 Room Air 07/07/25 08:59 07/07/25 08:59 07/07/25 08:59 07/07/25 08:59 07/07/25 08:59 07/07/25 08:59 Oxygen Delivery Method Room Air Weight: 175 lb Body Mass Index (BMI) 25.8 Intake & Output: Intake and Output for Last 24 Hours 07/05/25 07/06/25 07/07/25 22:59 23:59 23:59 Intake Total 242.5 / 242.5 220 / 220 Output Total 1050 / 1600 1350 / 1350 Balance -807.5 / -1357.5 -1130 / -1130 Lab / Micro Data Attestation: I reviewed the patient's lab results. 07/07/25 06:54 07/07/25 06:54 Labs: Laboratory Results - last 24 hr 07/06/25 17:15: WBC 11.5 H, RBC 4.14 L, Hgb 9.6 L, Hct 31.9 L, MCV 77.1 L, MCH 23.2 L, MCHC 30.1 L, RDW Std Deviation 54.4 H, RDW Coeff of Gila 19.6 H, Plt Count 632 H, MPV 9.9, Immature Gran % (Auto) 1.000 H, Neut % (Auto) 90.5 H, L ymph % (Auto) 7.2 L, Hodgeman % (Auto) 0.9, Eos % (Auto) 0.0, Baso % (Auto) 0.4, A bsolute Neuts (auto) 10.4 H, Absolute Lymphs (auto) 0.83, Nucleated RBC % 0, Differential Comment SCANNED, Diff Path Review Saima gomes, Platelet Estimate [employer] 07/07/25 06:54: WBC 11.1 H, RBC 3.85 L, Hgb 9.0 L, Hct 29.3 L, MCV 76.1 L, MCH 23.4 L, MCHC 30.7 L, RDW Std Deviation 54.4 H, RDW Coeff of Gila 19.7 H, Plt Count 625 H, MPV 9.7, Immature Gran % (Auto) 0.500, Neut % (Auto) 80.2 H, Lymph % (Auto) 12.5 L, Hodgeman % (Auto) 6.5, Eos % (Auto) 0.0, Baso % (Auto) 0.3, A bsolute Neuts (auto) 8.9 H, Absolute Lymphs (auto) 1.38, Nucleated RBC % 0, Sodium 141, Potassium 4.3, Chloride 106, Carbon Dioxide 22.8, Anion Gap 11, BUN 16, Creatinine 0.69 L, Estim Creat Clear Calc 126.66, Est GFR (MDRD) Non-Af 112, BUN/Creatinine Ratio 23.7 H, Glucose 135 H, Calcium 8.6, Phosphorus 3.3, Magnesium 2.1, Total Bilirubin 0.21, AST 30, ALT 22, Alkaline Phosphatase 84, Total Protein 7.5, Albumin 2.7 L, Globulin 4.8 H, Albumin/Globulin Ratio 0.6 L Micro: Microbiology 07/06/25 10:40 Bone - Ischial Bone Gram Stain - Final 07/06/25 10:40 Bone - Ischial Bone Wound Culture - Preliminary No growth-Final to follow 07/06/25 10:37 Tissue Ulcer - Ischial Pressure Sore Gram Stain - Final 07/06/25 10:37 Tissue Ulcer - Ischial Pressure Sore Wound Culture - Preliminary Staphylococcus aureus 07/06/25 10:36 Bone - Sacral Bone Gram Stain - Final 07/06/25 10:36 Bone - Sacral Bone Wound Culture - Preliminary No growth-Final to follow 07/06/25 10:33 Tissue Ulcer - Sacral Pressure Sore Gram Stain - Final 07/06/25 10:33 Tissue Ulcer - Sacral Pressure Sore Wound Culture - Preliminary No growth-Final to follow Physical Exam Narrative Afebrile/VSS. Lying on his back, turned with assist Wound VAC dressing with good seal. Avalos catheter in place, minimal clear yellow urine noted. Assessment & Plan Assessment/Plan (1) Decubitus ulcer of ischial area, stage 4: QUALIFIERS: Laterality: unspecified laterality Qualified Code(s): L89.304 - Pressure ulcer of unspecified buttock, stage 4 PLAN: POD#1 right sacral wound excision with irrigating wound VAC placement Preop for tomorrow for flap and incisional wound VAC placement. Incisional wound VAC will remain in place until Sunday07/13/25, then take down and place Provena wound VAC with plans for DC on Sunday Pain control: per NOV No organisms on surgical samples thus far. Continue Ancef 2g Q8hrs. Off load from VAC and incision, frequent positions changes every 2 hours. Chronic Avalos catheter: Catheter balloon noted to be in penis. Monitor for blockage concerns and change out if needed. Follow up with his urologist as outpatient. DVT ppx: SQ Lovenox Charges/Coding Procedures Integumentary [id number]: 11711 Global Visit
--- NOTE | 2025-07-07 12:31 | CASEMGMT ---
RN CM Assessment Face to Face with patient for initial transition planning/care coordination assessment. RN CM introduced self and role at [facility], pt voices understanding. Pt is A&Ox4 and is resting comfortably in bed and is calm. Wound RN at the bedside. Care providers, pharmacy, and demographics verified. Admitting dx: Debridement of sacral and right ischial wound LACE Strata: 1 PCP: Ophelia Ag Specialists: Terrance Ag (ID), Marcos (Urology), Christy (PM) Preferred Pharmacy: [facility] Insurance: MMO MCR. RADHA/[employer] Prescription Benefit: Yes LNOK: Brandie (Mother) Living Arrangements: Pt lives alone in a single story home. Pt states that the home is very handicap accessible as the pt has a history of Rt BKA. ADLs/IADLs: Pt states that he is indep and able to care for himself Transportation: Self. Pt denies other sources or transportation at this time. CM to follow. DME: . Avalos catheter and supplies. Pt denies needs or concerns. Shower chair. HHC/SNF: Pt reports that he was recently discharged from [facility]. Pt states that he has been to [facility] in the past Pt?s goal: TBD Plan: TBD. At this time, the pt states that [facility] once medically ready. Pt states that he will need help with wound care and that he received excellent care there in the past. Per the wound RN, pt will be here until Sunday and is scheduled for flap surgery and wound vac placement tomorrow. CM to follow plastics consult. Pt states that he has been to the [facility] in the past and was recently seen x2 months ago. Pt denies further questions or concerns at this time. CM to follow for safe DC planning. Report given to 3 ADRIANA TRINIDAD. Chun Pappas RN, CM
[2025-07-07] MEDS: hydrOXYzine PAM 25 MG Capsule 50 MG PO (13:31)
[2025-07-07 20:38] VITALS: BP 127/84; PULSE 89; RESP 16; TEMP 36.8; O2SAT 96
[2025-07-07 23:24] VITALS: BP 113/80; PULSE 103; RESP 15; TEMP 36.7; O2SAT 95
[2025-07-08] VITALS (15 sets, daily range): BP systolic 108–161; BP diastolic 68–104; PULSE 88–138; RESP 16–22; TEMP 36.3–38.4; O2SAT 95–100; BMI 25.8
[2025-07-08] MEDS: 0.9% Normal Saline (1000mL) 1,000 ML 75 ML IV (00:24)
[2025-07-08] MEDS: HYDROmorphone 0.5 MG/0.5 ML SYRINGE IV ×4 (01:05→21:25)
[2025-07-08] MEDS: 0.9% Saline Lock 10 ML Syringe IV ×4 (01:05→22:53)
[2025-07-08] MEDS: Cefazolin 2 GM in 0.9% Normal Saline (100mL Bag) 100 ML IV ×3 (05:34→23:00)
--- NOTE | 2025-07-08 06:00 | EKG12_ITS ---
Test Reason : PRE-OP Blood Pressure : */* mmHG Vent. Rate : 110 BPM Atrial Rate : 110 BPM P-R Int : 112 ms QRS Dur : 130 ms QT Int : 352 ms P-R-T Axes : 52 82 31 degrees QTcB Int : 476 ms Sinus tachycardia Right bundle branch block Abnormal ECG No previous ECGs available Confirmed by Jeff Beltran ([id number]), primer expeditor and drier NAIN DEL ANGEL ([id number]) on 07/08/2025 12:44:22 PM Referred By: Helio Alejandro Confirmed By: Jeff Beltran
[2025-07-08] MEDS: hydrOXYzine PAM 25 MG Capsule 50 MG PO ×2 (08:08→20:20)
--- NOTE | 2025-07-08 09:43 | PCM.PN.HOSP ---
Subjective Subjective Still with leg spasms, per the patient, common occurrence after he has surgeries. Objective Data Objective Data Vital Signs: Vital Signs Temp Pulse Resp BP Pulse Ox O2 Del Method 36.6 C 88 16 123/74 H 96 Room Air 07/08/25 07:56 07/08/25 07:56 07/08/25 07:56 07/08/25 07:56 07/08/25 07:56 07/08/25 07:56 Oxygen Delivery Method Room Air Weight: 79.379 kg Body Mass Index (BMI) 25.8 Intake & Output: Intake and Output for Last 24 Hours 07/06/25 07/07/25 07/08/25 23:59 23:59 23:59 Intake Total 242.5 / 242.5 440 / 440 671.5 / 671.5 Output Total 1050 / 1600 1750 / 2150 800 / 800 Balance -807.5 / -1357.5 -1310 / -1710 -128.5 / -128.5 Lab / Micro Data 07/07/25 06:54 07/07/25 06:54 Labs: Laboratory Results - last 24 hr 07/06/25 17:15: Diff Path Review Reviewed Micro: Microbiology 07/06/25 10:37 Tissue Ulcer - Ischial Pressure Sore Gram Stain - Final 07/06/25 10:37 Tissue Ulcer - Ischial Pressure Sore Wound Culture - Final Meth. resistant Staph. aureus 07/06/25 10:40 Bone - Ischial Bone Gram Stain - Final 07/06/25 10:40 Bone - Ischial Bone Wound Culture - Preliminary No growth-Final to follow 07/06/25 10:36 Bone - Sacral Bone Gram Stain - Final 07/06/25 10:36 Bone - Sacral Bone Wound Culture - Preliminary No growth-Final to follow 07/06/25 10:33 Tissue Ulcer - Sacral Pressure Sore Gram Stain - Final 07/06/25 10:33 Tissue Ulcer - Sacral Pressure Sore Wound Culture - Preliminary No growth-Final to follow Physical Exam Const alert Constitutional Narrative: lying in bed. non-toxic. afebrile. Extremity Extremity Narrative: right stump clean and intact. Neuro Sensorium / Orientation: awake and alert Assessment & Plan Assessment/Plan (1) Decubitus ulcer of ischial area, stage 4: QUALIFIERS: Laterality: unspecified laterality Qualified Code(s): L89.304 - Pressure ulcer of unspecified buttock, stage 4 PLAN: Status post excision of stage IV ulcer down to bone form 8 cm. Excision of right ischial ulcer down to the bone stage IV 4 to 3 cm. Placement of irrigating wound VAC over the wounds. For closure today and plans (2) Leg muscle spasm: PLAN: Continue baclofen, gabapentin, scheduled oxycodone (his home regimen) Will add scheduled acetaminophen. Ongoing despite medication changes. add prn oxycodone. PLAN: Plan Paraplegia: Complicates care and recovery. Hypertension: Continue verapamil Chronic Avalos. Patient has Avalos catheter change intermittently. Apparently the bulb of the catheter is not within the urethra. Dr. Alejandro reached out to urology who advised for the patient to follow-up with his regular urologist as outpatient as this was placed as outpatient.. The catheter is draining fine so we will leave it as is for now but if it does become obstructed then that will either need to be replaced or urology will need to be formally consulted. VTE prophylaxis with enoxaparin Charges/Coding Visit Charges Inpatient E&M: 01280 Subs Hosp L1
--- NOTE | 2025-07-08 10:55 | CASEMGMT ---
RN CM spoke with wound nurse, plan for dc on Sunday with disposable vac. Pt is requesting [facility] at dc. Therapy has not eval'd yet and pt to have OR today. Will plan on making referral after surgery and therapy evals.
--- NOTE | 2025-07-08 11:12 | CASEMGMT ---
Late entry for 07/07/25 at 3:40pm Message sent to Dr. Alejandro after speaking with therapy regarding sitting protocol and needs at [facility].
[2025-07-08] MEDS: Lactated Ringers 1,000 ML 15 ML IV (12:22)
--- NOTE | 2025-07-08 12:27 | PCM.PRE.AN2 ---
ASA Classification* ASA Classification ASA Classification: 3 (Paraplegia, HTN, chronic gonzalez. Will give versed in preop due to anxiety ) Assessment & Plan Anesthesia* Anesthesia Assessment Anesthesia Assessment: Discussed sedation and/or anesthesia options, risks, benefits, and alternatives with patient/parents/legal guardian/POA. Questions invited. The patient/parents/legal guardian/POA seems to understand and agrees to proceed with anesthesia plan. Reviewed the physical assessment, medical history, allergy history and patient home medications list prior to surgery/procedure/anesthetic and documented any changes. Performed airway and anesthesia risk assessments. Anesthesia Type Anesthesia Type: General History Source History Obtained from:: Patient and Chart Anesthesia Focused Assessment* Temperature: 99.2 F Pulse Rate: 97 Blood Pressure: 122/81 Respiratory Rate: 18 Pulse Ox: 96 Airway Assessment Mouth opens: >3 cm Mallampati Score: II Teeth Condition: Intact Neck Range of motion (ROM): Full ROM Labs Anesthesia Preop lab: CBC WBC, (4.4-11.0) 11.1 K/mm3 H 07/07/25, 06:54 RBC, (4.6-6.2) 3.85 M/mm3 L 07/07/25, 06:54 Hgb, (13.0-16.5) 9.0 g/dL L 07/07/25, 06:54 Hct, (40-54) 29.3 % L 07/07/25, 06:54 Plt Count, (150-450) 625 K/mm3 H 07/07/25, 06:54 CHEMISTRY Potassium, (3.3-5.1) 4.3 mmol/L 07/07/25, 06:54 Sodium, (133-145) 141 mmol/L 07/07/25, 06:54 Magnesium, (1.5-2.2) 2.1 mg/dL 07/07/25, 06:54 Phosphorus, (2.7-4.5) 3.3 mg/dL 07/07/25, 06:54 BUN, (4-19) 16 mg/dL 07/07/25, 06:54 Creatinine, (0.70-1.20) 0.69 mg/dL L 07/07/25, 06:54 Glucose, (70-99) 135 mg/dL H 07/07/25, 06:54 COAG Pre-Assessment Diagnosis/Proposed Procedure Planned Operative Procedure(s): (N/A) Debridement of sacral and right ischial wound with wound vac placement, Stage 1 Anesthesia History 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 When Was Last Pacemaker Check QUESTION #4 FULL TEXT: You/Your Family Experience fever (hyperthermia) with Anesthesia Last Oral Intake Last Oral intake: Last Oral Intake NPO since 00:00 07/08/25 07:59 Meds taken in AM with sips of Yes 07/08/25 07:59 water? Meds patient instructed to see MAR 07/08/25 07:59 take am of surgery PONV PONV - gasoline engine assembler: PONV - gasoline engine assembler Female No 06/26/25 09:09 HX of Motion Sickness Yes 06/26/25 09:09 HX of N/V After Surgery Yes 06/26/25 09:09 Non-Smoker Yes 06/26/25 09:09 Duration of Surgery greater Yes 06/26/25 09:09 than 60 minutes Number of Risk Factors 4 06/26/25 09:09 PONV Score Severe Risk 06/26/25 09:09 Height & Weight Height & Weight: Anesthesia: Height & Weight Height 5 ft 9 in 07/08/25 07:59 Weight: 79.379 kg 07/08/25 07:59 Body Mass Index (BMI) 25.8 07/08/25 07:59 Respiratory Assessment Respiratory Assessment - gasoline engine assembler: Respiratory Tract Infection Hx - gasoline engine assembler Hx Respiratory Tract Infection No 07/07/25 19:57 STOP Sleep Apnea STOP Sleep Apnea - gasoline engine assembler: STOP Sleep Apnea - gasoline engine assembler Hx Hypertension Yes: PER PT, CONTROLLED ON 06/26/25 09:09 MED Hx Sleep Apnea Yes 07/06/25 16:56 CPAP BIPAP Do you snore loudly (louder Yes 06/26/25 09:09 than talking or can be heard Do you often feel tired/ No 06/26/25 09:09 fatigued/ sleepy during daytime? Has anyone observed you stop No 06/26/25 09:09 breathing during sleep? STOP Results Positive 06/26/25 09:09 QUESTION #5 FULL TEXT : Do you snore loudly (louder than talking or can be heard through closed doors)? 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 Specify any problems Hx of Preganancy in last 3 N/A 06/26/25 09:09 Months Nurse Filling Out Transfusion MGRIFFITH 06/26/25 09:09 & Questions: Date: 06/26/25 06/26/25 09:09 Time: 09:15 06/26/25 09:09 Patient unable to answer at this time (ie. confused, unrespo /Reproduction History /Reproductive History - gasoline engine assembler: /Reproductive Hx- gasoline engine assembler Hx Now Gestational Age (in weeks): EDC: Hx Hx Para Hx Section SAB Does the father of the baby or his family experience fever w Father of the baby Malignant Hypertension history comment Active Medications Active Medications: Current Medications Generic Name Dose Route Start Last Admin Trade Name Freq PRN Reason Stop Dose Admin Acetaminophen 1,000 mg 07/07/25 14:00 07/08/25 05:32 Acetaminophen 500 Mg Tablet PO 1,000 mg Q8 DULCE Administration Baclofen 20 mg 07/06/25 18:00 07/08/25 08:08 Baclofen 10 Mg Tablet PO 20 mg 4X/DAY DULCE Administration Sodium Hypochlorite 473 ml/ 0 ml 07/07/25 07:00 07/08/25 07:31 Sodium Chloride 473 ml IRRIGATION Not Given UD [facility] Enoxaparin Sodium 40 mg 07/06/25 17:00 07/07/25 09:13 Enoxaparin 40 Mg/0.4 Ml Syringe SC Not Given On Hold: 07/07/25 15:35 DAILY DULCE Gabapentin 1,200 mg 07/06/25 14:00 07/08/25 05:31 Gabapentin 600 Mg Tablet PO 1,200 mg TID DULCE Administration Hydromorphone HCl 0.5 mg 07/06/25 18:01 07/08/25 10:28 Hydromorphone 0.5 Mg/0.5 Ml Syringe IV 0.5 mg Q4H PRN PRN Administration Pain Score 4-10 or Pre PT/OT Hydroxyzine Pamoate 50 mg 07/06/25 09:11 07/08/25 08:08 Hydroxyzine Eunice 25 Mg Capsule PO 50 mg 4X/DAY PRN PRN Administration ANXIETY Lactated Ringer's 1,000 mls @ 15 mls/hr 07/06/25 08:45 07/08/25 08:10 IV Infused .Q48H DULCE Infusion Cefazolin Sodium 2 gm/ Sodium 110 mls @ 200 mls/hr 07/06/25 17:00 07/08/25 06:12 Chloride IV Infused Q8 DULCE Infusion Sodium Chloride 250 mls @ 15 mls/hr 07/06/25 17:25 IV .[id number] PRN Saline Flush Sodium Chloride 250 mls @ 15 mls/hr 07/06/25 17:25 IV .[id number] PRN Additional IVPB Infusion Sodium Chloride 1,000 mls @ 75 mls/hr 07/08/25 00:00 07/08/25 10:28 IV 0 mls/hr .[id number] DULCE Infusion Lactated Ringer's 1,000 mls @ 15 mls/hr 07/08/25 12:30 07/08/25 12:22 IV 15 mls/hr .Q48H DULCE Administration Ondansetron HCl 4 mg 07/06/25 23:54 07/08/25 10:32 Ondansetron 4 Mg/2 Ml Vial IV 4 mg Q6H PRN PRN Administration NAUSEA/VOMITING Oxycodone HCl 15 mg 07/06/25 18:00 07/08/25 08:08 Oxycodone Cr 15 Mg Tablet PO 15 mg BID DULCE Administration Oxycodone HCl 5 mg 07/08/25 09:45 Oxycodone 5 Mg Tablet PO Q4H PRN PRN Pain Score 6-10 Sodium Chloride 10 - 40 ml 07/06/25 17:25 07/08/25 10:28 0.9% Saline Lock 10 Ml Syringe IV 10 ml UD PRN Administration SALINE FLUSH Verapamil HCl 120 mg 07/07/25 22:00 07/07/25 23:20 Verapamil 120 Mg Tablet PO 120 mg QHS DULCE Administration Protocol Zolpidem Tartrate 10 mg 07/06/25 19:45 07/08/25 00:24 Zolpidem Tartrate 5 Mg Tablet PO 10 mg QHS PRN PRN Administration Sleep PFSH Medical History (Updated 07/08/25 @ 10:49 by Yarelis Yanez) MRSA (methicillin resistant staph aureus) culture positive Wears glasses History of Clostridium difficile infection Uses wheelchair Indwelling urethral catheter present Injury of back History of seizures Gastric reflux Non-smoker Hypertension Home Medications ?Medication ?Instructions ?Recorded ?Last Taken ?Type baclofen 20 mg tablet 20 mg PO 4X/DAY 05/11/25 Unknown History gabapentin 600 mg tablet 1,200 mg PO TID 05/11/25 Unknown History hydroxyzine HCl 25 mg tablet 50 mg PO 4X/DAY PRN PRN anxiety 05/11/25 Unknown History oxycodone myristate 13.5 mg 13.5 mg PO Q12H pain 05/11/25 Unknown History capsule sprinkle extend release 12hr(DON'T CRUSH) (Xtampza ER) verapamil 120 mg tablet 120 mg PO DAILY 06/26/25 Unknown History Allergy/AdvReac Type Severity Reaction Status Date / Time adhesive tape Allergy Other Verified 07/08/25 12:21 morphine Allergy Other Verified 07/08/25 12:21 venlafaxine (From Effexor) Allergy Other Verified 07/08/25 12:21 Surgical History History of surgery History of tonsillectomy and adenoidectomy History of appendectomy History of spinal surgery History of amputation of right foot Social History Smoking Status: Never smoker Review of Systems (Anesthesia) ROS Narrative System reviewed and no additional complaints, except as documented. Physical Exam Const alert, oriented x3 and average body habitus Resp normal respiratory effort, normal air movement and clear to auscultation bilaterally Cardio regular rate, regular rhythm, no murmurs and diaphoretic
[2025-07-08] MEDS: Lactated Ringers 500 ML IV (12:54)
--- NOTE | 2025-07-08 13:22 | CON.PCM.ID_ITS ---
Assessment & Plan Assessment/Plan (1) Osteomyelitis, chronic, pelvic region: PLAN: necrotic bone seen in OR 07/06/[address] Alejandro. Tissue cx now with MRSA. On cefazolin, will add iv vanc and po flagyl. OR today for flap. Will follow, thank you HPI Consult Data Date of Consult: 07/08/25 HPI Narrative Reason for Consultation: osteo HPI Narrative: LUCIANA POWELL, is a 49 M with paraplegia and decub ulcer for 2 years, admitted 07/06 for debridement R ischial ulcer and sacral ulcer. Taken to OR by Dr. Alejandro, bone involvement seen. Now on cefazolin, going back to OR today for flap and wound vac placement. Having pain at surgical site, mild. No fever or chills. On cefazolin here. Full ROS performed and neg except as noted above. [facility] Medical History MRSA (methicillin resistant staph aureus) culture positive Wears glasses History of Clostridium difficile infection Uses wheelchair Indwelling urethral catheter present Injury of back History of seizures Gastric reflux Non-smoker Hypertension Home Medications ?Medication ?Instructions ?Recorded ?Last Taken ?Type baclofen 20 mg tablet 20 mg PO 4X/DAY 05/11/25 Unk nown History gabapentin 600 mg tablet 1,200 mg PO TID 05/11/25 Unk nown History hydroxyzine HCl 25 mg tablet 50 mg PO 4X/DAY PRN PRN a nxiety 05/11/25 Unknown History oxycodone myristate 13.5 mg 13.5 mg PO Q12H pain 05/11 Unknown History capsule sprinkle extend release 12hr(DON'T CRUSH) (Xtampza ER) verapamil 120 mg tablet 120 mg PO DAILY 06/26/25 Unk nown History Allergy/AdvReac Type Severity Reaction Status Date / Time adhesive tape Allergy Other Verified 07/08/25 12:21 morphine Allergy Other Verified 07/08/25 12:21 venlafaxine (From Effexor) Allergy Other Verified 07/08/25 12:21 Surgical History History of surgery History of tonsillectomy and adenoidectomy History of appendectomy History of spinal surgery History of amputation of right foot Social History Smoking Status: Never smoker Physical Exam Const alert, oriented x3 and no apparent distress General Appearance: cooperative HEENT normocephalic and head/scalp atraumatic Eyes PERRL and EOMs intact bilaterally Neck supple and No nodes Resp normal air movement and clear to auscultation bilaterally Cardio regular rate and regular rhythm GI soft to palpation, non-tender and non-distended Extremity General Extremity: Negative for edema Skin Skin Narrative: wounds bandaged Neuro CN's II-XII intact bilaterally Lab / Micro Data Attestation: I reviewed the patient's lab results. 07/07/25 06:54 07/07/25 06:54 Labs: Laboratory Results - last 24 hr 07/06/25 17:15: Diff Path Review Reviewed Micro: Microbiology 07/06/25 10:36 Bone - Sacral Bone Gram Stain - Final 07/06/25 10:36 Bone - Sacral Bone Wound Culture - Preliminary No growth-Final to follow 07/06/25 10:36 Bone - Sacral Bone Anaerobic Culture - Preliminary No growth in 48 hours. 07/06/25 10:40 Bone - Ischial Bone Gram Stain - Final 07/06/25 10:40 Bone - Ischial Bone Wound Culture - Preliminary No growth-Final to follow 07/06/25 10:40 Bone - Ischial Bone Anaerobic Culture - Preliminary No growth in 48 hours. 07/06/25 10:33 Tissue Ulcer - Sacral Pressure Sore Gram Stain - Final 07/06/25 10:33 Tissue Ulcer - Sacral Pressure Sore Wound Culture - Preliminary No growth-Final to follow 07/06/25 10:33 Tissue Ulcer - Sacral Pressure Sore Anaerobic Culture - Preliminary No growth in 48 hours. 07/06/25 10:37 Tissue Ulcer - Ischial Pressure Sore Gram Stain - Final 07/06/25 10:37 Tissue Ulcer - Ischial Pressure Sore Wound Culture - Final Meth. resistant Staph. aureus 07/06/25 10:37 Tissue Ulcer - Ischial Pressure Sore Anaerobic Culture - Preliminary
[2025-07-08] MEDS: Vancomycin HCl 2,000 MG in 0.9% Normal Saline (500mL Bag) 500 ML 250 MG IV (13:27)
--- NOTE | 2025-07-08 13:36 | PCM.PN.SRG ---
Subjective Subjective Patient presents for stage 2 of the sacral ulcer closure with flap reconstruction with Dr. Alejandro. No concerns overnight. Objective Data Objective Data General: Denies fever, chills HEENT: Denies headaches, vision changes, sore throat Cardio: Denies chest pain, leg edema Pulmonary: Denies shortness of pain, cough, wheezing GI: Denies nausea, vomiting, diarrhea Vital Signs: Vital Signs Temp Pulse Resp BP Pulse Ox O2 Del Method 99.2 F H 97 18 122/81 H 96 Room Air 07/08/25 12:31 07/08/25 12:31 07/08/25 12:31 07/08/25 12:31 07/08/25 12:31 07/08/25 12:25 Oxygen Delivery Method Room Air Weight: 175 lb 0.012 oz Body Mass Index (BMI) 25.8 Intake & Output: Intake and Output for Last 24 Hours 07/06/25 07/07/25 07/08/25 23:59 23:59 23:59 Intake Total 242.5 / 242.5 440 / 440 1426.5 / 1426.5 Output Total 1050 / 1600 1750 / 2150 800 / 800 Balance -807.5 / -1357.5 -1310 / -1710 626.5 / 626.5 Lab / Micro Data 07/07/25 06:54 07/07/25 06:54 Labs: Laboratory Results - last 24 hr 07/06/25 17:15: Diff Path Review Reviewed Micro: Microbiology 07/06/25 10:36 Bone - Sacral Bone Gram Stain - Final 07/06/25 10:36 Bone - Sacral Bone Wound Culture - Preliminary No growth-Final to follow 07/06/25 10:36 Bone - Sacral Bone Anaerobic Culture - Preliminary No growth in 48 hours. 07/06/25 10:40 Bone - Ischial Bone Gram Stain - Final 07/06/25 10:40 Bone - Ischial Bone Wound Culture - Preliminary No growth-Final to follow 07/06/25 10:40 Bone - Ischial Bone Anaerobic Culture - Preliminary No growth in 48 hours. 07/06/25 10:33 Tissue Ulcer - Sacral Pressure Sore Gram Stain - Final 07/06/25 10:33 Tissue Ulcer - Sacral Pressure Sore Wound Culture - Preliminary No growth-Final to follow 07/06/25 10:33 Tissue Ulcer - Sacral Pressure Sore Anaerobic Culture - Preliminary No growth in 48 hours. 07/06/25 10:37 Tissue Ulcer - Ischial Pressure Sore Gram Stain - Final 07/06/25 10:37 Tissue Ulcer - Ischial Pressure Sore Wound Culture - Final Meth. resistant Staph. aureus 07/06/25 10:37 Tissue Ulcer - Ischial Pressure Sore Anaerobic Culture - Preliminary Physical Exam Narrative Afebrile/VSS. Wound VAC with good seal. Skin sensitivity over wound and surrounding area. Avalos catheter in place. Assessment & Plan Assessment/Plan (1) Decubitus ulcer of ischial area, stage 4: QUALIFIERS: Laterality: unspecified laterality Qualified Code(s): L89.304 - Pressure ulcer of unspecified buttock, stage 4 (2) Osteomyelitis, chronic, pelvic region: PLAN: Plan PLAN: POD#2 right sacral wound excision with irrigating wound VAC placement Stage 2 of wound closure with flap reconstruction today. Continue Ancef for surgical prophylaxis
[2025-07-08] MEDS: Cefazolin 1 GM/5 ML Vial 2 GM IV (14:04)
[2025-07-08] MEDS: Lidocaine 1% (5 ml sdv) 5 ML Vial IV (14:34)
[2025-07-08] MEDS: Vancomycin IV 1,000 MG/20 ML Vial 2000 MG IV (15:01)
[2025-07-08] MEDS: Bupiv/Epi 0.25% 30 ML Vial (15:45)
[2025-07-08] MEDS: Lidocaine 1% /Epi 1:100 (50ml) 50 ML VIAL (15:45)
--- NOTE | 2025-07-08 16:41 | PCM.RX.CS ---
Consult Antibiotic Management Pharmacy has been consulted to manage selected antibiotic: Vancomycin Type of Intervention Type of Consult: New start Suspected Infection Suspected Infection: Osteomyelitis Labs Labs: Sodium 141 mmol/L (133-145) 07/07/25 06:54 Potassium 4.3 mmol/L (3.3-5.1) 07/07/25 06:54 Chloride 106 mmol/L (98-108) 07/07/25 06:54 Carbon Dioxide 22.8 mmol/L (21.0-32.0) 07/07/25 06:54 Anion Gap 11 (5-15) 07/07/25 06:54 BUN 16 mg/dL (4-19) 07/07/25 06:54 Creatinine 0.69 mg/dL (0.70-1.20) L 07/07/25 06:54 Est GFR (MDRD) Non-Af 112 (>60) 07/07/25 06:54 BUN/Creatinine Ratio 23.7 RATIO (10-20) H 07/07/25 06:54 Glucose 135 mg/dL (70-99) H 07/07/25 06:54 Microbiology Microbiology: Microbiology 07/06/25 10:36 Bone - Sacral Bone Gram Stain - Final 07/06/25 10:36 Bone - Sacral Bone Wound Culture - Preliminary No growth-Final to follow 07/06/25 10:36 Bone - Sacral Bone Anaerobic Culture - Preliminary No growth in 48 hours. 07/06/25 10:40 Bone - Ischial Bone Gram Stain - Final 07/06/25 10:40 Bone - Ischial Bone Wound Culture - Preliminary No growth-Final to follow 07/06/25 10:40 Bone - Ischial Bone Anaerobic Culture - Preliminary No growth in 48 hours. 07/06/25 10:33 Tissue Ulcer - Sacral Pressure Sore Gram Stain - Final 07/06/25 10:33 Tissue Ulcer - Sacral Pressure Sore Wound Culture - Preliminary No growth-Final to follow 07/06/25 10:33 Tissue Ulcer - Sacral Pressure Sore Anaerobic Culture - Preliminary No growth in 48 hours. 07/06/25 10:37 Tissue Ulcer - Ischial Pressure Sore Gram Stain - Final 07/06/25 10:37 Tissue Ulcer - Ischial Pressure Sore Wound Culture - Final Meth. resistant Staph. aureus 07/06/25 10:37 Tissue Ulcer - Ischial Pressure Sore Anaerobic Culture - Preliminary Goal Trough Goal Trough: 15-20 mcg/mL Pharmacy Plan for Drug Dosing Pharmacy Plan for Drug Dosing: NEW START IV VANCOMYCIN Consulting Physician: Dr. Alejandro Indication: Osteomyelitis Goal Trough: 15-20 SrCr: 0.69 CrCl: 127 ml/min Comments: patient had a loading dose of 2000mg ordered and administered 07/08 @1327 Vancomycin Dose: 1000mg IV Q8h to start 07/08/25 @2100 Pending Level: 07/09/25 @1230, prior to 4th dose of vancomycin per protocol Pharmacy Service will continue to monitor and adjust dosing as required.
[2025-07-08] MEDS: fentaNYL 100 MCG/2 ML Ampul 300 MCG IV (17:02)
--- NOTE | 2025-07-08 17:10 | PCM.OPRPT ---
Operative Report (Standard) Operative Information Date of Procedure: 07/08/25 Pre-Operative Diagnosis: Right ischial pressure sore, stage IV Sacral pressure sore, stage IV Post-Operative Diagnosis: Same Surgery/Procedure Performed: 1) Right gluteus jaqueline myocutaneous rotation flap for sacral pressure ulcer flap reconstruction 2) Closure of right ischial wound with local fasciocutaneous flap (skin flap closure of ischial pressure wound) paralegal legal secretary: Yes Certified Ski Patroller: Leatha Neal Tasks completed by certified first assistant: Removing tissue and Retracting Type of Anesthesia: General/Supplemental (40 cc of a 50-50 mixture of 1% lidocaine with 1-200,000 epinephrine and quarter percent Marcaine with 1-200,000 epinephrine) RN Documented Start/Stop Times: Operation Date: 07/08/25 12:45 Case Time Into Pre-Op 07/08/25 12:19 Out of Pre-Op 07/08/25 14:16 Anesthesia Start 07/08/25 14:19 Into Room 07/08/25 14:19 Procedure Start 07/08/25 14:57 Procedure End 07/08/25 16:49 Anesthesia End 07/08/25 17:00 Out of Room 07/08/25 17:00 Into Recovery 07/08/25 17:03 Procedure Start Time: 14:57 Procedure Stop Time: 16:49 Select all DRAINS/GRAFTS/IMPLANTS that apply: None Estimated Blood Loss: 50 cc Specimen collected: Yes Description of specimen(s) removed: Sacral bone cultures, ischial bone cultures right Description of surgery: Indications: Patient is a delightful 49-year-old male with paraplegia who has a sacral and right ischial wound. These wounds were debrided 2 days ago and cultures were obtained. MRSA growing from the deep soft tissue of the right ischium, but this area was excised and there is no signs of current infection. He presents today for reconstruction. He understands the risks, benefits, and alternatives of the procedure, including failure to obtain the desired result and further wounds. Procedure details: Patient was correct identified in preoperative holding and taken back to the operating room where he was administered general anesthesia and flipped in the prone position with care taken to pad all bony prominences and protect hands, arms, and face, as well as the penis and lower extremity bony prominences. Once appropriate level of anesthesia and positioning had been obtained, we did a timeout and prepped and draped in sterile fashion. The wounds were further excised with curettes and Metzenbaum scissors to debride any fibrinous exudate. They were washed out with Irrisept and copious amounts normal saline. Bone cultures were taken with a rongeur from each wound. The wounds were deemed clean for reconstruction. A 10 blade scalpel was used to further incise the previous incision from the right gluteal myocutaneous flap. Bovie electrocautery was used to dissect down to the plane beneath the gluteus jaqueline muscle on the right and carefully preserve the superior gluteal artery pesticide chemist (which was identified) going into the underlying muscle. The myocutaneous flap was then readvanced and inset over the sacral wound with minimal tension, de-epithelializing the distal aspect of the rotation flap and bearing that as an added layer of coverage and space fill over the sacral wound. The wound was closed in layers with the flap, doing 0 PDS deep sutures between the muscle layers and the fascial layers, followed by 3-0 Monocryl deep dermal sutures and 3-0 nylon vertical mattress sutures. An incisional wound VAC was applied. The closure was performed over a 19 Norwegian Min drain which was tunneled out laterally. Attention was then turned to the right ischial wound. A medial incision was made for a small rotation flap from the medial side of the right thigh and the fasciocutaneous level (dissection was taken down to the fascia of the hamstring muscles). This relieved tension off of the closure, and was in a different vector than the sacral wound closure and therefore did not have conflicting forces. The skin flap was then rotated and advanced into position and the wound was closed in layers with deep fascia closed with 0 PDS, and the Davidson's closed with 0 PDS, followed by 3-0 Monocryl deep dermal sutures followed by 3-0 interrupted vertical mattress nylon's. The closure was performed over a 19 Norwegian Min drain which was tunneled out inferiorly. An incisional wound VAC was applied. The drains were rolling suction at the end of the case. The patient tolerated the procedure well. He was awakened and taken to the PACU in stable condition. Postoperative plan: Continue on the air bed for pressure offloading and continue with lateral positioning or prone only for the next 3 weeks (no pressure on the flaps), then we will begin a sitting protocol. Patient will remain in house for 5 days while we keep the incisional vacs on. Surgical Findings: Healthy wound bed ready for reconstruction without any signs of gross contamination or infection Complications Complications: No
--- NOTE | 2025-07-08 17:19 | PCM.POST.ANE ---
Anesthesia: Postop Eval I Current Vital Signs Temperature: 99.5 F Pulse Rate: 126 Blood Pressure: 160/104 Respiratory Rate: 22 Pulse Ox: 100 Oxygen Delivery Method: Simple Mask Oxygen Flow Rate (L/min): 6 Assessment Airway patent: Yes Spontaneous unlabored respirations: Yes Mental status: Awake and Calm nausea: No Vomiting: No Anesthesia Complication: No Fluid Hydration Crystalloid volume administer (ml): 500 Total IV fluid infused: 500 Progress Note Post-operative progress note: pt in pain; medicated, and also shivering (Dr. Mehta called for demerol order by RN) Anesthesia document: Postop Eval 1 completed: Yes
--- NOTE | 2025-07-08 17:38 | SUR.PHASEI ---
PT CAME TO PACU TACHYCARDIC AND TEMPERATURE OF 101.2 WITH TREMORS. ENGINEERING PROGRAM ANALYST REKHA AT BEDSIDE. ANESTHESIA DR LOPEZ NOTIFIED OF STATUS OF PATIENT AND IV DEMEROL ORDERED, DR LOPEZ SAID SPEAK WITH HOSPITALIST REGARDING TACHYCARDIA AND TEMPERATURE. ATTEMPTING FOR ADDITIONAL IV AT THIS TIME.
--- NOTE | 2025-07-08 17:41 | SUR.PHASEI ---
ATTEMPTING TO START IV AT THIS TIME SO NO BP TAKEN
--- NOTE | 2025-07-08 18:01 | SUR.PHASEI ---
ATTEMPTED TO PAGE HOSPITALIST DR WAGNER VIA BACK LINE AT [phone]. ATTEMPTED TO PAGE AGAIN THROUGH HOSPITAL PHOTO CARTOGRAPHER AT 1800
--- NOTE | 2025-07-08 18:08 | SUR.PHASEI ---
DR WAGNER NOTIFIED ON PATIENT STATUS, HE SPOKE WITH ANESTHESIA DR PAVON ON THE PHONE AND NOTIFIED PATIENT STATUS. BERNARD OKAY WITH SENDING PATIENT BACK TO MED SURG. HR 115 TEMP 99
--- NOTE | 2025-07-08 18:09 | POSTOPAN2_ITS ---
Anesthesia Postop Eval I Sum Postop Eval Completion status Anesthesia document: Postop Eval 1 completed: Yes Anesthesia Postop Eval I Summary Anesthesia Postop Eval I Summary: Anesthesia Postop Eval I: Assessment Summary Airway patent Yes 07/08/25 17:20 STORAGE [email or web address] Spontaneous unlabored Yes 07/08/25 17:20 STORAGE [email or web address] respirations Mental status Awake,Calm 07/08/25 17:20 STORAGE [email or web address] nausea No 07/08/25 17:20 STORAGE [email or web address] Vomiting No 07/08/25 17:20 STORAGE [email or web address] Anesthesia Postop Eval I: Fluid Summary Crystalloid volume administer 500 07/08/25 17:20 STORAGE [email or web address] (ml) Colloids volume administered ( ml) Blood Product volume administered (ml) Total IV fluid infused 500 07/08/25 17:20 STORAGE [email or web address] Anesthesia Postop Eval I: Summary Notes Anesthesia Complication No 07/08/25 17:20 STORAGE [email or web address] Anesthesia Complication Comment: Post-operative progress note pt in pain; 07/08/25 17:20 STORAGE [email or web address] medicated, and also shivering (Dr Vickie Mehta called for demerol order by RN) Anesthesia: Postop Eval II Evaluation Mental status: Awake Pain Level: 0 nausea: No Vomiting: No Complications Anesthesia Complication: No
--- NOTE | 2025-07-08 18:09 | PCM.POSTANE2 ---
Anesthesia Postop Eval I Sum Postop Eval Completion status Anesthesia document: Postop Eval 1 completed: Yes Anesthesia Postop Eval I Summary Anesthesia Postop Eval I Summary: Anesthesia Postop Eval I: Assessment Summary Airway patent Yes 07/08/25 17:20 AFRICAN HISTORY [email or web address] Spontaneous unlabored Yes 07/08/25 17:20 AFRICAN HISTORY [email or web address] respirations Mental status Awake,Calm 07/08/25 17:20 AFRICAN HISTORY [email or web address] nausea No 07/08/25 17:20 AFRICAN HISTORY PROFESSOR.JDEF Vomiting No 07/08/25 17:20 AFRICAN HISTORY [email or web address] Anesthesia Postop Eval I: Fluid Summary Crystalloid volume administer 500 07/08/25 17:20 AFRICAN HISTORY [email or web address] (ml) Colloids volume administered ( ml) Blood Product volume administered (ml) Total IV fluid infused 500 07/08/25 17:20 AFRICAN HISTORY PROFESSOR.JDEF Anesthesia Postop Eval I: Summary Notes Anesthesia Complication No 07/08/25 17:20 AFRICAN HISTORY [email or web address] Anesthesia Complication Comment: Post-operative progress note pt in pain; 07/08/25 17:20 AFRICAN HISTORY PROFESSOR.JDEF medicated, and also shivering (Dr Vickie Mehta called for demerol order by RN) Anesthesia: Postop Eval II Evaluation Mental status: Awake Pain Level: 0 nausea: No Vomiting: No Complications Anesthesia Complication: No
--- NOTE | 2025-07-08 18:46 | NURSING ---
per PACU nurse Dr. Richardson aware of vitals and okay for transfer back to [facility].
[2025-07-08] MEDS: Vancomycin HCl 1,000 MG in 0.9% Normal Saline (250mL Bag) 250 ML 250 MG IV (20:14)
[2025-07-09] VITALS (11 sets, daily range): BP systolic 77–130; BP diastolic 48–98; PULSE 87–101; RESP 16; TEMP 36.6–37.2; O2SAT 93–100
[2025-07-09] MEDS: 0.9% Normal Saline (1000mL) 1,000 ML 75 ML IV ×2 (01:25→15:51)
[2025-07-09] MEDS: 0.9% Saline Lock 10 ML Syringe IV ×3 (01:30→11:46)
[2025-07-09] MEDS: HYDROmorphone 0.5 MG/0.5 ML SYRINGE IV ×4 (01:30→20:11)
[2025-07-09] MEDS: Vancomycin HCl 1,000 MG in 0.9% Normal Saline (250mL Bag) 250 ML 250 MG IV (04:42)
[2025-07-09] MEDS: Cefazolin 2 GM in 0.9% Normal Saline (100mL Bag) 100 ML IV (06:42)
--- NOTE | 2025-07-09 07:02 | PCM.PN.HOSP ---
Subjective Subjective Post-operatively patient was tachycardic and had a temp up to 101 f. BP low on floor. Objective Data Objective Data Vital Signs: Vital Signs Temp Pulse Resp BP Pulse Ox O2 Del Method O2 Flow Rate 36.6 C 99 16 130/95 H 97 Room Air 6 07/09/25 04:38 07/09/25 04:38 07/09/25 04:38 07/09/25 04:38 07/09/25 04:38 07/09/25 04:38 07/08/25 17:20 Oxygen Flow Rate (L/min) 6 Oxygen Delivery Method Room Air Weight: 79.379 kg Body Mass Index (BMI) 25.8 Intake & Output: Intake and Output for Last 24 Hours 07/07/25 07/08/25 07/09/25 23:59 23:59 23:59 Intake Total 440 / 440 3591.5 / 3991.5 780 / 780 Output Total 1750 / 2150 980 / 1088 133 / 133 Balance -1310 / -1710 2611.5 / 2903.5 647 / 647 Lab / Micro Data 07/09/25 07:51 07/09/25 07:51 Micro: Microbiology 07/06/25 10:36 Bone - Sacral Bone Gram Stain - Final 07/06/25 10:36 Bone - Sacral Bone Wound Culture - Preliminary No growth-Final to follow 07/06/25 10:36 Bone - Sacral Bone Anaerobic Culture - Preliminary No growth in 48 hours. 07/06/25 10:40 Bone - Ischial Bone Gram Stain - Final 07/06/25 10:40 Bone - Ischial Bone Wound Culture - Preliminary No growth-Final to follow 07/06/25 10:40 Bone - Ischial Bone Anaerobic Culture - Preliminary No growth in 48 hours. 07/06/25 10:33 Tissue Ulcer - Sacral Pressure Sore Gram Stain - Final 07/06/25 10:33 Tissue Ulcer - Sacral Pressure Sore Wound Culture - Preliminary No growth-Final to follow 07/06/25 10:33 Tissue Ulcer - Sacral Pressure Sore Anaerobic Culture - Preliminary No growth in 48 hours. 07/06/25 10:37 Tissue Ulcer - Ischial Pressure Sore Gram Stain - Final 07/06/25 10:37 Tissue Ulcer - Ischial Pressure Sore Wound Culture - Final Meth. resistant Staph. aureus 07/06/25 10:37 Tissue Ulcer - Ischial Pressure Sore Anaerobic Culture - Preliminary Physical Exam Const Constitutional Narrative: awake. non-toxic. no respiratory distress. no conversational dyspnea. HEENT head/scalp atraumatic and moist oral mucous membranes Resp normal respiratory effort, no retractions, no use of accessory muscles and clear to auscultation bilaterally Cardio regular rate, regular rhythm, S1 normal heart sound and S2 normal heart sound GI normal to inspection, nondistended, normoactive bowel sounds and soft to palpation Neuro Sensorium / Orientation: awake and alert Assessment & Plan Assessment/Plan (1) Decubitus ulcer of ischial area, stage 4: QUALIFIERS: Laterality: unspecified laterality Qualified Code(s): L89.304 - Pressure ulcer of unspecified buttock, stage 4 PLAN: Status post excision of stage IV ulcer down to bone form 8 cm. Excision of right ischial ulcer down to the bone stage IV 4 to 3 cm. Placement of irrigating wound VAC over the wounds. Pt underwent right gluteal myocutaneous flap. (2) Leg muscle spasm: PLAN: Continue baclofen, gabapentin, scheduled oxycodone (his home regimen) Will add scheduled acetaminophen. Ongoing despite medication changes. add prn oxycodone. (3) Fever: PLAN: post-operatively did have MRSA on wound culture on the 3rd. continue vancomycin, cefazolin, metronidazole. ID following. (4) Hypotension: PLAN: post operatively, ongoing today will give additional IVF. caution with narcotics PLAN: Plan Paraplegia: Complicates care and recovery. Hypertension: Continue verapamil Chronic Avalos. Patient has Avalos catheter change intermittently. Apparently the bulb of the catheter is not within the urethra. Dr. Alejandro reached out to urology who advised for the patient to follow-up with his regular urologist as outpatient as this was placed as outpatient.. The catheter is draining fine so we will leave it as is for now but if it does become obstructed then that will either need to be replaced or urology will need to be formally consulted. VTE prophylaxis with enoxaparin Charges/Coding Visit Charges Inpatient E&M: 04926 Subs Hosp L2
[2025-07-09 08:06] LABS: Hematocrit 25.8 % (40-54); Hemoglobin 7.9 g/dL (13.0-16.5); Immature Granulocytes Count 0.050 X10^3/uL (0.0-0.0); Mean Corp Hgb Conc 30.6 g/dL (32-36); Mean Corpuscular Volume 77.2 fL (80-94); Mean Platelet Vol. 9.5 fl (6.2-12.0); NRBC Flagged by Analyzer 0 % (0-5); POSITIVE DIFFERENTIAL YES; Platelet Count 493 K/mm3 (150-450); RBC Distribution Width CV 19.8 % (11.6-14.6); RBC Distribution Width SD 55.3 fl (35.1-43.9); Red Blood Count 3.34 M/mm3 (4.6-6.2); White Blood Count 13.4 K/mm3 (4.4-11.0)
[2025-07-09 08:14] LABS: Differential Indicated SCAN CRITERIA MET
[2025-07-09 08:31] LABS: Anion Gap 8 (5-15); BUN 10 mg/dL (4-19); BUN/Creat Ratio 17.8 RATIO (10-20); Calcium,Total 7.5 mg/dL (7.6-11.0); Carbon Dioxide 21.4 mmol/L (21.0-32.0); Chloride 106 mmol/L (98-108); Estimated Creatinine Clearance 150.68 ml/min (50-250); Glucose 96 mg/dL (70-99); Potassium 3.6 mmol/L (3.3-5.1)
[2025-07-09] MEDS: Lactobacillis Acidophilus 1 CAP PO (09:05)
[2025-07-09] MEDS: 0.9% Normal Saline (1000mL) 1,000 ML 999 ML IV (09:50)
--- NOTE | 2025-07-09 10:19 | PCM.PN.ID ---
Physical Exam Narrative C/o poor iv access. Feeling ok, no n/v/d. No fever. Const alert and no apparent distress General Appearance: cooperative Resp normal air movement and clear to auscultation bilaterally Cardio regular rate and regular rhythm GI soft to palpation, non-tender and non-distended Skin Skin Narrative: surg dressing in place ID ID: Route of nutrition/ use of supplements: [] Nutritional Intake: [] IV Site: [] Avalos Catheter: [] Assessment & Plan Assessment/Plan (1) Osteomyelitis, chronic, pelvic region: PLAN: necrotic bone seen in OR 07/06/[address] Alejandro. Tissue cx now with MRSA. OR 07/08/25 for flap. Surg cx 07/08 now showing GNR. On vanc/cefazolin/flagyl, will change cefazolin to ceftriaxone. Due to poor iv access, will order picc. Not clear if will need iv or po abx at discharge but will require 6 weeks total course. Will follow
--- NOTE | 2025-07-09 11:00 | PN.SURG_ITS ---
Subjective Subjective Seen this morning with Dr. Alejandro. He reports postoperative pain. Blood pressure low this morning and received IVF bolus. He's requesting probiotics and Lactaid. No wound or wound VAC concerns. Objective Data Objective Data Vital Signs: Vital Signs Temp Pulse Resp BP Pulse Ox O2 Del Method O2 Flow Rate 98.8 F 100 16 77/48 L 93 Room Air 6 07/09/25 09:04 07/09/25 09:04 07/09/25 09:04 07/09/25 09:04 07/09/25 09:04 07/09/25 09:04 07/08/25 17:20 Oxygen Flow Rate (L/min) 6 Oxygen Delivery Method Room Air Weight: 175 lb 0.012 oz Body Mass Index (BMI) 25.8 Intake & Output: Intake and Output for Last 24 Hours 07/07/25 07/08/25 07/09/25 23:59 23:59 23:59 Intake Total 440 / 440 3591.5 / 3991.5 890 / 890 Output Total 1750 / 2150 980 / 1088 233 / 233 Balance -1310 / -1710 2611.5 / 2903.5 657 / 657 Lab / Micro Data Attestation: I reviewed the patient's lab results. 07/09/25 07:51 07/09/25 07:51 Labs: Laboratory Results - last 24 hr 07/09/25 07:51: WBC 13.4 H, RBC 3.34 L, Hgb 7.9 L, Hct 25.8 L, MCV 77.2 L, MCH 23.7 L, MCHC 30.6 L, RDW Std Deviation 55.3 H, RDW Coeff of Gila 19.8 H, Plt Count 493 H, MPV 9.5, Immature Gran % (Auto) 0.400, Neut % (Auto) 74.1 H, Lymph % (Auto) 11.4 L, [place] % (Auto) 12.3 H, Eos % (Auto) 1.4, Baso % (Auto) 0.4, A bsolute Neuts (auto) 9.9 H, Absolute Lymphs (auto) 1.53, Nucleated RBC % 0, Differential Comment COMMENT, Sodium 136, Potassium 3.6, Chloride 106, Carbon Dioxide 21.4, Anion Gap 8, BUN 10, Creatinine 0.58 L, Estim Creat Clear Calc 150.68, Est GFR (MDRD) Non-Af 118, BUN/Creatinine Ratio 17.8, Glucose 96, C alcium 7.5 L Micro: Microbiology 07/06/25 10:37 Tissue Ulcer - Ischial Pressure Sore Gram Stain - Final 07/06/25 10:37 Tissue Ulcer - Ischial Pressure Sore Wound Culture - Final Meth. resistant Staph. aureus 07/06/25 10:37 Tissue Ulcer - Ischial Pressure Sore Anaerobic Culture - Final No anaerobic bacteria isolated. 07/08/25 15:07 Wound - Leg, Left Wound Culture - Preliminary No growth-Final to follow 07/08/25 15:07 Tissue - Ischial Pressure Sore Wound Culture - Preliminary Gram negative heaven 07/08/25 15:07 Tissue - Sacral Wound Culture - Preliminary No growth-Final to follow 07/06/25 10:40 Bone - Ischial Bone Gram Stain - Final 07/06/25 10:40 Bone - Ischial Bone Wound Culture - Final No growth aerobically. 07/06/25 10:40 Bone - Ischial Bone Anaerobic Culture - Preliminary No growth in 48 hours. 07/06/25 10:36 Bone - Sacral Bone Gram Stain - Final 07/06/25 10:36 Bone - Sacral Bone Wound Culture - Final No growth aerobically. 07/06/25 10:36 Bone - Sacral Bone Anaerobic Culture - Preliminary No growth in 48 hours. 07/06/25 10:33 Tissue Ulcer - Sacral Pressure Sore Gram Stain - Final 07/06/25 10:33 Tissue Ulcer - Sacral Pressure Sore Wound Culture - Final No growth aerobically. 07/06/25 10:33 Tissue Ulcer - Sacral Pressure Sore Anaerobic Culture - Preliminary No growth in 48 hours. Physical Exam Narrative Hypotensive, HR100, afebrile. Lying in bed on his side Wound VACX2 with good seal, no ouptut in cartridge LOLIS drain 63ml from this morning. Leave in place Assessment & Plan Assessment/Plan (1) Osteomyelitis, chronic, pelvic region: QUALIFIERS: Laterality: right Qualified Code(s): M86.651 - Other chronic osteomyelitis, right thigh (2) Decubitus ulcer of ischial area, stage 4: QUALIFIERS: Laterality: unspecified laterality Qualified Code(s): L89.304 - Pressure ulcer of unspecified buttock, stage 4 PLAN: Plan POD #1 flap reconstruction with drain and wound VAC placement. POD#3 right sacral wound excision with irrigating wound VAC placement Pain control: per NOV Plan for wound VAC to remain in place with removal on Sunday and replaced with Provena VAC Drain care: Leave in place. Per ID: Tissue cx now with MRSA. OR 07/08/25 for flap. Surg cx 07/08 now showing GNR. On vanc/cefazolin/flagyl, will change cefazolin to ceftriaxone. Due to poor iv access, will order picc. Not clear if will need iv or po abx at discharge but will require 6 weeks total course. Hypotension: Received IV bolus, with continual IVF maintenance. Labs: Absolute neutrophils below initial presenting count. WBC slightly elevated this morning from 11 to 13. DVT ppx: SCD's and SQ Lovenox resumed today. Dispo: Will benefit from TCU vs rehab stay. Charges/Coding Procedures Integumentary [id number]: [id number] Global Visit
--- NOTE | 2025-07-09 11:27 | CASEMGMT ---
Spoke with Dr. Alejandro this date regarding pt needs at dc. Discussed therapy evals with therapy. Requested dc application assistant to send referral to pt preference of [facility].
[2025-07-09] MEDS: Ceftriaxone 2 GM in 0.9% Normal Saline (50mL MB+) 50 ML IV (11:46)
[2025-07-09 13:34] LABS: Vancomycin, Trough Level 24.4 ug/mL (5.0-15.0)
--- NOTE | 2025-07-09 14:14 | PHA.PHARE_ITS ---
Consult Antibiotic Management Pharmacy has been consulted to manage selected antibiotic: Vancomycin Type of Intervention Type of Consult: Follow-up Labs Labs: Sodium 136 mmol/L (133-145) 07/09/25 07:51 Potassium 3.6 mmol/L (3.3-5.1) 07/09/25 07:51 Chloride 106 mmol/L (98-108) 07/09/25 07:51 Carbon Dioxide 21.4 mmol/L (21.0-32.0) 07/09/25 07:51 Anion Gap 8 (5-15) 07/09/25 07:51 BUN 10 mg/dL (4-19) 07/09/25 07:51 Creatinine 0.58 mg/dL (0.70-1.20) L 07/09/25 07:51 Est GFR (MDRD) Non-Af 118 (>60) 07/09/25 07:51 BUN/Creatinine Ratio 17.8 RATIO (10-20) 07/09/25 07:51 Glucose 96 mg/dL (70-99) 07/09/25 07:51 Vancomycin Trough 24.4 ug/mL (5.0-15.0) H 07/09/25 13:05 Microbiology Microbiology: Microbiology 07/06/25 10:37 Tissue Ulcer - Ischial Pressure Sore Gram Stain - Final 07/06/25 10:37 Tissue Ulcer - Ischial Pressure Sore Wound Culture - Final Meth. resistant Staph. aureus 07/06/25 10:37 Tissue Ulcer - Ischial Pressure Sore Anaerobic Culture - Joanne l No anaerobic bacteria isolated. 07/08/25 15:07 Wound - Leg, Left Wound Culture - Preliminary No growth-Final to follow 07/08/25 15:07 Tissue - Ischial Pressure Sore Wound Culture - Preliminary Gram negative heaven 07/08/25 15:07 Tissue - Sacral Wound Culture - Preliminary No growth-Final to follow 07/06/25 10:40 Bone - Ischial Bone Gram Stain - Final 07/06/25 10:40 Bone - Ischial Bone Wound Culture - Final No growth aerobically. 07/06/25 10:40 Bone - Ischial Bone Anaerobic Culture - Preliminary No growth in 48 hours. 07/06/25 10:36 Bone - Sacral Bone Gram Stain - Final 07/06/25 10:36 Bone - Sacral Bone Wound Culture - Final No growth aerobically. 07/06/25 10:36 Bone - Sacral Bone Anaerobic Culture - Preliminary No growth in 48 hours. 07/06/25 10:33 Tissue Ulcer - Sacral Pressure Sore Gram Stain - Final 07/06/25 10:33 Tissue Ulcer - Sacral Pressure Sore Wound Culture - Final No growth aerobically. 07/06/25 10:33 Tissue Ulcer - Sacral Pressure Sore Anaerobic Culture - Preliminary No growth in 48 hours. Goal Trough Goal Trough: 15-20 mcg/mL Pharmacy Plan for Drug Dosing Pharmacy Plan for Drug Dosing: VANCOMYCIN LEVEL RECEIVED Current Vancomycin Dose: 1000mg IV Q8h Number of Doses Received: 3 (load + 2 scheduled) Vancomycin Level: 24.4 Hours Since Last Dose: 8.3hr Renal Function: SCr 0.58/ CrCl > 100mL/min Renal Function Trend: stable Lab/Micro: WCx growing GNR, MRSA Vancomycin Plan/Comments: patient had a trough drawn which resulted in a value of 24.4 (goal 15-20). The patient's trough is above therapeutic level. Will hold vancomycin and resume once trough is <20. Plan to draw a random trough when next dose would have been due. Pending Level: *RANDOM* 07/09/25 @2100 Pharmacy Service will continue to monitor and adjust dosing as required.
--- NOTE | 2025-07-09 16:01 | CASEMGMT ---
Discharge Planning [facility] declined. Nirmala Ennis DC Planning Asst.
--- NOTE | 2025-07-09 16:10 | CASEMGMT ---
Discharge Planning A list of?SNF providers including quality and resource use data and consistent with the patient's preferred geographic region, medical needs, and insurance network was created in [employer] Guide.? This list was provided to the patient. Nirmala Ennis, Discharge Planning Asst.
--- NOTE | 2025-07-09 16:29 | PCM.PN.BLA ---
Progress Note Came by to see the patient regarding consult he had an MRI done that showed that the Avalos catheter may not be all the way past the prostate but the catheter is draining very likely just urinating into the catheter is draining out he normally changes his catheter himself this might be chronic says he has a lot of scar tissue in the urethral channel and he does not want me to do anything to try to advance the catheter at this point which is fine probably will not be able to get by his chronic scar tissue since is working and draining as I have any pain or problems he can follow-up as an outpatient with his urologist call me with questions
[2025-07-09] MEDS: LACTASE 3,000 UNIT TABLET 3000 UNIT PO (17:18)
[2025-07-09 21:46] LABS: Vancomycin, Random Level 14.9 ug/mL (0.0-15.0)
--- NOTE | 2025-07-09 21:54 | PCM.RX.CS ---
Consult Antibiotic Management Pharmacy has been consulted to manage selected antibiotic: Vancomycin Type of Intervention Type of Consult: Follow-up Suspected Infection Suspected Infection: Osteomyelitis Labs Labs: Sodium 136 mmol/L (133-145) 07/09/25 07:51 Potassium 3.6 mmol/L (3.3-5.1) 07/09/25 07:51 Chloride 106 mmol/L (98-108) 07/09/25 07:51 Carbon Dioxide 21.4 mmol/L (21.0-32.0) 07/09/25 07:51 Anion Gap 8 (5-15) 07/09/25 07:51 BUN 10 mg/dL (4-19) 07/09/25 07:51 Creatinine 0.58 mg/dL (0.70-1.20) L 07/09/25 07:51 Est GFR (MDRD) Non-Af 118 (>60) 07/09/25 07:51 BUN/Creatinine Ratio 17.8 RATIO (10-20) 07/09/25 07:51 Glucose 96 mg/dL (70-99) 07/09/25 07:51 Vancomycin Trough 24.4 ug/mL (5.0-15.0) H 07/09/25 13:05 Random Vancomycin 14.9 ug/mL (0.0-15.0) 07/09/25 20:50 Microbiology Microbiology: Microbiology 07/08/25 15:07 Wound - Leg, Left Gram Stain - Final 07/08/25 15:07 Wound - Leg, Left Wound Culture - Preliminary No growth-Final to follow 07/08/25 15:07 Tissue - Ischial Pressure Sore Gram Stain - Final 07/08/25 15:07 Tissue - Ischial Pressure Sore Wound Culture - Preliminary Gram negative heaven 07/08/25 15:07 Tissue - Sacral Gram Stain - Final 07/08/25 15:07 Tissue - Sacral Wound Culture - Preliminary No growth-Final to follow 07/08/25 15:07 Bone - Sacral Bone Gram Stain - Final 07/06/25 10:37 Tissue Ulcer - Ischial Pressure Sore Gram Stain - Final 07/06/25 10:37 Tissue Ulcer - Ischial Pressure Sore Wound Culture - Final Meth. resistant Staph. aureus 07/06/25 10:37 Tissue Ulcer - Ischial Pressure Sore Anaerobic Culture - Final No anaerobic bacteria isolated. 07/06/25 10:40 Bone - Ischial Bone Gram Stain - Final 07/06/25 10:40 Bone - Ischial Bone Wound Culture - Final No growth aerobically. 07/06/25 10:40 Bone - Ischial Bone Anaerobic Culture - Preliminary No growth in 48 hours. 07/06/25 10:36 Bone - Sacral Bone Gram Stain - Final 07/06/25 10:36 Bone - Sacral Bone Wound Culture - Final No growth aerobically. 07/06/25 10:36 Bone - Sacral Bone Anaerobic Culture - Preliminary No growth in 48 hours. 07/06/25 10:33 Tissue Ulcer - Sacral Pressure Sore Gram Stain - Final 07/06/25 10:33 Tissue Ulcer - Sacral Pressure Sore Wound Culture - Final No growth aerobically. 07/06/25 10:33 Tissue Ulcer - Sacral Pressure Sore Anaerobic Culture - Preliminary No growth in 48 hours. Dosing Weight Weight used for dosin kg Estimated Creatinine Clearance Estimated Creatinine Clearance: 151 Goal Trough Goal Trough: 15-20 mcg/mL Pharmacy Plan for Drug Dosing Pharmacy Plan for Drug Dosing: Vancomycin random level was down to 14.9. This was 16hrs since last dose. Per dosing calculator, a new dose of 1250mg q12h should give an estimated new trough of 18.4. Will initiate now and draw a trough level prior to fourth dose of new regimen. Pharmacy Service will continue to monitor and adjust dosing as required. Follow-Up Labs Follow-Up Labs: Trough: Vancomycin Date/Time Labs Ordered Labs to be done on [date and time ordered]: 07/11/25 @5988
[2025-07-09] MEDS: hydrOXYzine PAM 25 MG Capsule 50 MG PO (22:10)
[2025-07-09] MEDS: Vancomycin HCl 1,250 MG in 0.9% Normal Saline (250mL Bag) 250 ML 167 MG IV (22:28)
[2025-07-10] MEDS: HYDROmorphone 0.5 MG/0.5 ML SYRINGE IV ×5 (01:03→20:12)
[2025-07-10 05:26] VITALS: BP 144/80; PULSE 98; RESP 16; TEMP 36.6; O2SAT 100
[2025-07-10] MEDS: 0.9% Saline Lock 10 ML Syringe IV ×4 (05:43→20:12)
[2025-07-10 05:56] LABS: Hematocrit 25.1 % (40-54); Hemoglobin 7.8 g/dL (13.0-16.5); Immature Granulocytes Count 0.070 X10^3/uL (0.0-0.0); Mean Corp Hgb Conc 31.1 g/dL (32-36); Mean Corpuscular Volume 76.8 fL (80-94); Mean Platelet Vol. 9.9 fl (6.2-12.0); NRBC Flagged by Analyzer 0 % (0-5); POSITIVE DIFFERENTIAL YES; Platelet Count 486 K/mm3 (150-450); RBC Distribution Width CV 19.7 % (11.6-14.6); RBC Distribution Width SD 54.4 fl (35.1-43.9); Red Blood Count 3.27 M/mm3 (4.6-6.2); White Blood Count 15.4 K/mm3 (4.4-11.0)
[2025-07-10 05:58] LABS: Differential Indicated SCAN CRITERIA MET
[2025-07-10 06:28] LABS: Anion Gap 8 (5-15); BUN 9 mg/dL (4-19); BUN/Creat Ratio 14.8 RATIO (10-20); Calcium,Total 7.4 mg/dL (7.6-11.0); Carbon Dioxide 22.4 mmol/L (21.0-32.0); Chloride 109 mmol/L (98-108); Estimated Creatinine Clearance 143.27 ml/min (50-250); Glucose 128 mg/dL (70-99); Potassium 3.6 mmol/L (3.3-5.1)
[2025-07-10 06:33] LABS: Differential Comment SCANNED
--- NOTE | 2025-07-10 07:15 | PCM.PN.HOSP ---
Subjective Subjective still with muscle aches, but alleviated by medications. Objective Data Objective Data Vital Signs: Vital Signs Temp Pulse Resp BP Pulse Ox O2 Del Method O2 Flow Rate 36.6 C 98 16 144/80 H 100 Room Air 6 07/10/25 05:26 07/10/25 05:26 07/10/25 05:26 07/10/25 05:26 07/10/25 05:26 07/10/25 05:26 07/08/25 17:20 Oxygen Flow Rate (L/min) 6 Oxygen Delivery Method Room Air Weight: 79.379 kg Body Mass Index (BMI) 25.8 Intake & Output: Intake and Output for Last 24 Hours 07/08/25 07/09/25 07/10/25 23:59 23:59 23:59 Intake Total 3591.5 / 3991.5 2832.5 / 2932.5 375 / 375 Output Total 980 / 1088 1278 / 1278 700 / 700 Balance 2611.5 / 2903.5 1554.5 / 1654.5 -325 / -325 Lab / Micro Data 07/10/25 05:10 07/10/25 05:10 Labs: Laboratory Results - last 24 hr 07/09/25 07:51: WBC 13.4 H, RBC 3.34 L, Hgb 7.9 L, Hct 25.8 L, MCV 77.2 L, MCH 23.7 L, MCHC 30.6 L, RDW Std Deviation 55.3 H, RDW Coeff of Gila 19.8 H, Plt Count 493 H, MPV 9.5, Immature Gran % (Auto) 0.400, Neut % (Auto) 74.1 H, Lymph % (Auto) 11.4 L, [place] % (Auto) 12.3 H, Eos % (Auto) 1.4, Baso % (Auto) 0.4, Absolute Neuts (auto) 9.9 H, Absolute Lymphs (auto) 1.53, Nucleated RBC % 0, Differential Comment COMMENT, Sodium 136, Potassium 3.6, Chloride 106, Carbon Dioxide 21.4, Anion Gap 8, BUN 10, Creatinine 0.58 L, Estim Creat Clear Calc 150.68, Est GFR (MDRD) Non-Af 118, BUN/Creatinine Ratio 17.8, Glucose 96, Calcium 7.5 L 07/09/25 13:05: Vancomycin Trough 24.4 H 07/09/25 20:50: Random Vancomycin 14.9 07/10/25 05:10: WBC 15.4 H, RBC 3.27 L, Hgb 7.8 L, Hct 25.1 L, MCV 76.8 L, MCH 23.9 L, MCHC 31.1 L, RDW Std Deviation 54.4 H, RDW Coeff of Gila 19.7 H, Plt Count 486 H, MPV 9.9, Immature Gran % (Auto) 0.500, Neut % (Auto) 70.2 H, Lymph % (Auto) 13.9 L, [place] % (Auto) 11.5 H, Eos % (Auto) 3.4, Baso % (Auto) 0.5, Absolute Neuts (auto) 10.8 H, Absolute Lymphs (auto) 2.13, Nucleated RBC % 0, Differential Comment SCANNED, Sodium 138, Potassium 3.6, Chloride 109 H, Carbon Dioxide 22.4, Anion Gap 8, BUN 9, Creatinine 0.61 L, Estim Creat Clear Calc 143.27, Est GFR (MDRD) Non-Af 116, BUN/Creatinine Ratio 14.8, Glucose 128 H, Calcium 7.4 L Micro: Microbiology 07/08/25 15:07 Wound - Leg, Left Gram Stain - Final 07/08/25 15:07 Wound - Leg, Left Wound Culture - Preliminary No growth-Final to follow 07/08/25 15:07 Tissue - Ischial Pressure Sore Gram Stain - Final 07/08/25 15:07 Tissue - Ischial Pressure Sore Wound Culture - Preliminary Gram negative heaven 07/08/25 15:07 Tissue - Sacral Gram Stain - Final 07/08/25 15:07 Tissue - Sacral Wound Culture - Preliminary No growth-Final to follow 07/08/25 15:07 Bone - Sacral Bone Gram Stain - Final 07/06/25 10:37 Tissue Ulcer - Ischial Pressure Sore Gram Stain - Final 07/06/25 10:37 Tissue Ulcer - Ischial Pressure Sore Wound Culture - Final Meth. resistant Staph. aureus 07/06/25 10:37 Tissue Ulcer - Ischial Pressure Sore Anaerobic Culture - Final No anaerobic bacteria isolated. 07/06/25 10:40 Bone - Ischial Bone Gram Stain - Final 07/06/25 10:40 Bone - Ischial Bone Wound Culture - Final No growth aerobically. 07/06/25 10:40 Bone - Ischial Bone Anaerobic Culture - Preliminary No growth in 48 hours. 07/06/25 10:36 Bone - Sacral Bone Gram Stain - Final 07/06/25 10:36 Bone - Sacral Bone Wound Culture - Final No growth aerobically. 07/06/25 10:36 Bone - Sacral Bone Anaerobic Culture - Preliminary No growth in 48 hours. 07/06/25 10:33 Tissue Ulcer - Sacral Pressure Sore Gram Stain - Final 07/06/25 10:33 Tissue Ulcer - Sacral Pressure Sore Wound Culture - Final No growth aerobically. 07/06/25 10:33 Tissue Ulcer - Sacral Pressure Sore Anaerobic Culture - Preliminary No growth in 48 hours. Physical Exam Const alert and no apparent distress Constitutional Narrative: lying in bed. non-toxic. afebrile. HEENT head/scalp atraumatic and moist oral mucous membranes Assessment & Plan Assessment/Plan (1) Decubitus ulcer of ischial area, stage 4: QUALIFIERS: Laterality: unspecified laterality Qualified Code(s): L89.304 - Pressure ulcer of unspecified buttock, stage 4 PLAN: Status post excision of stage IV ulcer down to bone form 8 cm. Excision of right ischial ulcer down to the bone stage IV 4 to [address] of irrigating wound VAC over the wounds. Pt underwent right gluteal myocutaneous flap. Wound culture growing out gram negative rods Abx w vanc, cefazolin and metronidazole. (2) Leg muscle spasm: PLAN: Continue baclofen, gabapentin, scheduled oxycodone (his home regimen) Will add scheduled acetaminophen. Ongoing despite medication changes. prn oxycodone hydromorphone depending on blood pressure. (3) Fever: PLAN: post-operatively did have MRSA on wound culture on the 3rd. continue vancomycin, cefazolin, metronidazole. ID following. (4) Hypotension: PLAN: post operatively overall improved. caution with narcotics (5) Anemia: PLAN: acute blood loss. Hg / was 9.9, now down to 7.8 after 2 surgeries. Post-operative blood loss. No need to transfuse (hold transfusion until hg less than or equal to 7), but would continue to monitor PLAN: Plan Paraplegia: Complicates care and recovery. Hypertension: Continue verapamil Chronic Avalos. Patient has Avalos catheter change intermittently. Apparently the bulb of the catheter is not within the urethra. Dr. Alejandro reached out to urology who advised for the patient to follow-up with his regular urologist as outpatient as this was placed as outpatient.. The catheter is draining fine so we will leave it as is for now but if it does become obstructed then that will either need to be replaced or urology will need to be formally consulted. VTE prophylaxis with enoxaparin Charges/Coding Visit Charges Inpatient E&M: 22920 Subs Hosp L2
[2025-07-10 07:56] VITALS: BP 105/58; PULSE 94; RESP 19; TEMP 36.9; O2SAT 96
[2025-07-10] MEDS: 0.9% Normal Saline (1000mL) 1,000 ML 75 ML IV ×2 (08:03→21:50)
[2025-07-10] MEDS: LACTASE 3,000 UNIT TABLET 3000 UNIT PO ×3 (09:17→17:42)
[2025-07-10] MEDS: Lactobacillis Acidophilus 1 CAP PO (09:17)
[2025-07-10] MEDS: Vancomycin HCl 1,250 MG in 0.9% Normal Saline (250mL Bag) 250 ML 167 MG IV ×2 (09:32→21:50)
[2025-07-10] MEDS: Ceftriaxone 2 GM in 0.9% Normal Saline (50mL MB+) 50 ML IV (11:10)
--- NOTE | 2025-07-10 11:20 | CASEMGMT ---
Addendum entered by Nirmala Ennis 07/10/25 13:58: All have accepted. Sanjeev Golden is foc and was asked to submit for precert. ADRIANA TRINIDAD updated. Nirmala Ennis DC Planning Asst. Original Note: Discharge Planning Pts requested that referrals be sent to the top star rated snfs in network with his insurance, minus [facility]. ADRIANA TRINIDAD updated. Referral sent to [facility], [facility], and [facility]. Nirmala Ennis DC Planning Asst.
--- NOTE | 2025-07-10 12:11 | WOUNDNOTE ---
In to assess wound VAC dressings with Dr Alejandro and DARIAN Zhang. good seal noted at 125mmHg low continuous suction. dressings are to remain in place until removed by Dr Alejandro. Pt was reminded of the importance of staying off his back to keep pressure off the wounds.
--- NOTE | 2025-07-10 12:51 | PCM.PN.SRG ---
Subjective Subjective Patient seen with Chelsea Tomas wound RN and nursing at bedside. He was noted lying flat on his back on his incision. His BP remained stable overnight. His bed was soaked with urine yesterday with question of blocked gonzalez catheter. Dr. Faria urology was consulted who evaluated the patient and found the gonzalez catheter functioning and recommended follow up outpatient with his regular urolgoist. Objective Data Objective Data Vital Signs: Vital Signs Temp Pulse Resp BP Pulse Ox O2 Del Method O2 Flow Rate 98.4 F 94 19 H 105/58 L 96 Room Air 6 07/10/25 07:56 07/10/25 07:56 07/10/25 07:56 07/10/25 07:56 07/10/25 07:56 07/10/25 07:56 07/08/25 17:20 Oxygen Flow Rate (L/min) 6 Oxygen Delivery Method Room Air Weight: 175 lb 0.012 oz Body Mass Index (BMI) 25.8 Intake & Output: Intake and Output for Last 24 Hours 07/08/25 07/09/25 07/10/25 23:59 23:59 23:59 Intake Total 3591.5 / 3991.5 2832.5 / 2932.5 1700 / 1700 Output Total 980 / 1088 1278 / 1278 700 / 700 Balance 2611.5 / 2903.5 1554.5 / 1654.5 1000 / 1000 Lab / Micro Data Attestation: I reviewed the patient's lab results. Lab results narrative: Hgb is stable, WBC trending up could be from surgery, continue monitoring. 07/10/25 05:10 07/10/25 05:10 Labs: Laboratory Results - last 24 hr 07/09/25 13:05: Vancomycin Trough 24.4 H 07/09/25 20:50: Random Vancomycin 14.9 07/10/25 05:10: WBC 15.4 H, RBC 3.27 L, Hgb 7.8 L, Hct 25.1 L, MCV 76.8 L, MCH 23.9 L, MCHC 31.1 L, RDW Std Deviation 54.4 H, RDW Coeff of Gila 19.7 H, Plt Count 486 H, MPV 9.9, Immature Gran % (Auto) 0.500, Neut % (Auto) 70.2 H, Lymph % (Auto) 13.9 L, [place] % (Auto) 11.5 H, Eos % (Auto) 3.4, Baso % (Auto) 0.5, Absolute Neuts (auto) 10.8 H, Absolute Lymphs (auto) 2.13, Nucleated RBC % 0, Differential Comment SCANNED, Sodium 138, Potassium 3.6, Chloride 109 H, Carbon Dioxide 22.4, Anion Gap 8, BUN 9, Creatinine 0.61 L, Estim Creat Clear Calc 143.27, Est GFR (MDRD) Non-Af 116, BUN/Creatinine Ratio 14.8, Glucose 128 H, Calcium 7.4 L Micro: Microbiology 07/08/25 15:07 Tissue - Ischial Pressure Sore Gram Stain - Final 07/08/25 15:07 Tissue - Ischial Pressure Sore Wound Culture - Preliminary Acinetobacter baumannii 07/08/25 15:07 Wound - Leg, Left Gram Stain - Final 07/08/25 15:07 Wound - Leg, Left Wound Culture - Preliminary Gram negative heaven 07/08/25 15:07 Tissue - Sacral Gram Stain - Final 07/08/25 15:07 Tissue - Sacral Wound Culture - Preliminary Gram negative heaven 07/08/25 15:07 Bone - Sacral Bone Gram Stain - Final 07/08/25 15:07 Bone - Sacral Bone Wound Culture - Preliminary 07/06/25 10:37 Tissue Ulcer - Ischial Pressure Sore Gram Stain - Final 07/06/25 10:37 Tissue Ulcer - Ischial Pressure Sore Wound Culture - Final Meth. resistant Staph. aureus 07/06/25 10:37 Tissue Ulcer - Ischial Pressure Sore Anaerobic Culture - Final No anaerobic bacteria isolated. 07/06/25 10:40 Bone - Ischial Bone Gram Stain - Final 07/06/25 10:40 Bone - Ischial Bone Wound Culture - Final No growth aerobically. 07/06/25 10:40 Bone - Ischial Bone Anaerobic Culture - Preliminary No growth in 48 hours. 07/06/25 10:36 Bone - Sacral Bone Gram Stain - Final 07/06/25 10:36 Bone - Sacral Bone Wound Culture - Final No growth aerobically. 07/06/25 10:36 Bone - Sacral Bone Anaerobic Culture - Preliminary No growth in 48 hours. 07/06/25 10:33 Tissue Ulcer - Sacral Pressure Sore Gram Stain - Final 07/06/25 10:33 Tissue Ulcer - Sacral Pressure Sore Wound Culture - Final No growth aerobically. 07/06/25 10:33 Tissue Ulcer - Sacral Pressure Sore Anaerobic Culture - Preliminary No growth in 48 hours. Physical Exam Narrative Afebrile/vss Readjusted in bed to lie on his side Wound VAC is intact with good suction 2 LOLIS drains total 70ml output. Leave in place Flap is pink and well perfused. Gonzalez catheter intact and patent. Assessment & Plan Assessment/Plan (1) Osteomyelitis, chronic, pelvic region: QUALIFIERS: Laterality: right Qualified Code(s): M86.651 - Other chronic osteomyelitis, right thigh (2) Decubitus ulcer of ischial area, stage 4: QUALIFIERS: Laterality: unspecified laterality Qualified Code(s): L89.304 - Pressure ulcer of unspecified buttock, stage 4 PLAN: Plan POD #2 flap reconstruction with drain and wound VAC placement. POD#4 right sacral wound excision with irrigating wound VAC placement Pain control: per NOV Plan for wound VAC to remain in place with removal on Sunday and replaced with Provena VAC incision care: Reinforced the importance of not laying on the incision and change positions every 2 hours with nursing. Drain care: Leave in place. 07/08 right ischial tissue culture shows acinetobactor baumanii, further sensitivity pending. Per ID: Tissue cx now with MRSA. OR 07/08/25 for flap. Surg cx 07/08 now showing GNR. On vanc/cefazolin/flagyl, will change cefazolin to ceftriaxone. Due to poor iv access, will order picc. Not clear if will need iv or po abx at discharge but will require 6 weeks total course. DVT ppx: SCD's and SQ Lovenox resumed 07/09. Dispo: Will benefit from TCU vs rehab stay. Charges/Coding Procedures Integumentary [id number]: [id number] Global Visit
--- NOTE | 2025-07-10 12:56 | PCM.PN.ID ---
Physical Exam Narrative Feeling ok, some nausea, no fever Const alert and no apparent distress General Appearance: cooperative Resp normal air movement and clear to auscultation bilaterally Cardio regular rate and regular rhythm GI soft to palpation, non-tender and non-distended Skin Skin Narrative: no new rash ID ID: Route of nutrition/ use of supplements: [] Nutritional Intake: [] IV Site: [] Avalos Catheter: [] Assessment & Plan Assessment/Plan (1) Osteomyelitis, chronic, pelvic region: QUALIFIERS: Laterality: right Qualified Code(s): M86.651 - Other chronic osteomyelitis, right thigh PLAN: necrotic bone seen in OR 07/06/[address] Alejandro. Tissue cx now with MRSA. OR 07/08/25 for flap. Surg cx 07/08 now showing MDR Acinetobacter. Spoke with lab, requested additional testing for gent, cefiderocol, minocycline. On vanc/ceftriaxone/flagyl. Spoke with pharmacy, will add po minocycline and order in cefiderocol for empiric coverage to start tomorrow. Would stop ceftriaxone once cefiderocol starts. Plan on 6 weeks iv abx at discharge. Will follow
[2025-07-10 14:00] VITALS: BP 118/66; PULSE 89; RESP 18; TEMP 36.8; O2SAT 98
--- NOTE | 2025-07-10 15:59 | CASEMGMT ---
CAN DOFFER requested ADRIANA TRINIDAD speak with pt. ADRIANA TRINIDAD into pt room, pt asks if he can change his mind on facility. ADRIANA TRINIDAD spoke with dc retail assistant store manager, precert has already been submitted with a number. ADRIANA TRINIDAD back into pt room, pt is aware that the precert has already been started. Pt is aware that once he gets to facility if he decides he does not like being there, he can work with them to get transferred to another facility. Pt is in agreement with this. Pt denies further needs at this time. DC retail assistant store manager aware that pt will need a pressure reducing mattress at [facility].
--- NOTE | 2025-07-10 16:19 | NURSING ---
Pt agreed to repositioning at 0600, 0900,1100, 1530. Pt educated on need to remain off back. Pt admits that he does not stay on side as recommended but will try to adhere to repositioning from L side to R side to stay off back.
[2025-07-10 20:45] VITALS: BP 106/64; PULSE 92; RESP 16; TEMP 36.7; O2SAT 99
[2025-07-10] MEDS: hydrOXYzine PAM 25 MG Capsule 50 MG PO (21:53)
[2025-07-11] MEDS: HYDROmorphone 0.5 MG/0.5 ML SYRINGE IV ×2 (02:02→06:12)
[2025-07-11 02:39] VITALS: BP 104/71; PULSE 86; RESP 16; TEMP 36.6; O2SAT 99
[2025-07-11] MEDS: 0.9% Saline Lock 10 ML Syringe IV ×2 (06:48→22:15)
[2025-07-11 07:05] LABS: Hematocrit 23.9 % (40-54); Hemoglobin 7.3 g/dL (13.0-16.5); Immature Granulocytes Count 0.050 X10^3/uL (0.0-0.0); Mean Corp Hgb Conc 30.5 g/dL (32-36); Mean Corpuscular Volume 76.8 fL (80-94); Mean Platelet Vol. 9.7 fl (6.2-12.0); NRBC Flagged by Analyzer 0 % (0-5); Platelet Count 455 K/mm3 (150-450); RBC Distribution Width CV 19.8 % (11.6-14.6); RBC Distribution Width SD 55.3 fl (35.1-43.9); Red Blood Count 3.11 M/mm3 (4.6-6.2); White Blood Count 9.9 K/mm3 (4.4-11.0)
[2025-07-11 07:41] LABS: Anion Gap 7 (5-15); BUN 11 mg/dL (4-19); BUN/Creat Ratio 26.0 RATIO (10-20); Calcium,Total 7.2 mg/dL (7.6-11.0); Carbon Dioxide 23.7 mmol/L (21.0-32.0); Chloride 109 mmol/L (98-108); Estimated Creatinine Clearance 218.48 ml/min (50-250); Glucose 93 mg/dL (70-99); Potassium 3.6 mmol/L (3.3-5.1)
[2025-07-11 09:00] VITALS: BP 98/67; PULSE 78; RESP 16; TEMP 36.6; O2SAT 98
[2025-07-11] MEDS: Lactobacillis Acidophilus 1 CAP PO (09:59)
[2025-07-11 10:01] LABS: Vancomycin, Trough Level 15.7 ug/mL (5.0-15.0)
[2025-07-11] MEDS: 0.9% Normal Saline (1000mL) 1,000 ML 75 ML IV (10:40)
--- NOTE | 2025-07-11 11:00 | PCM.RX.CS ---
Consult Type of Intervention Type of Consult: Follow-up Labs Labs: Sodium 139 mmol/L (133-145) 07/11/25 06:50 Potassium 3.6 mmol/L (3.3-5.1) 07/11/25 06:50 Chloride 109 mmol/L (98-108) H 07/11/25 06:50 Carbon Dioxide 23.7 mmol/L (21.0-32.0) 07/11/25 06:50 Anion Gap 7 (5-15) 07/11/25 06:50 BUN 11 mg/dL (4-19) 07/11/25 06:50 Creatinine 0.40 mg/dL (0.70-1.20) L 07/11/25 06:50 Est GFR (MDRD) Non-Af 132 (>60) 07/11/25 06:50 BUN/Creatinine Ratio 26.0 RATIO (10-20) H 07/11/25 06:50 Glucose 93 mg/dL (70-99) 07/11/25 06:50 Vancomycin Trough 15.7 ug/mL (5.0-15.0) H 07/11/25 09:18 Random Vancomycin 14.9 ug/mL (0.0-15.0) 07/09/25 20:50 Microbiology Microbiology: Microbiology 07/08/25 15:07 Bone - Sacral Bone Gram Stain - Final 07/08/25 15:07 Bone - Sacral Bone Wound Culture - Final Enterobacter cloacae complex 07/08/25 15:07 Bone - Sacral Bone Anaerobic Culture - Preliminary 07/08/25 15:07 Tissue - Sacral Gram Stain - Final 07/08/25 15:07 Tissue - Sacral Wound Culture - Final Enterobacter cloacae complex 07/08/25 15:07 Tissue - Sacral Anaerobic Culture - Preliminary No growth in 48 hours. 07/08/25 15:07 Tissue - Ischial Pressure Sore Gram Stain - Final 07/08/25 15:07 Tissue - Ischial Pressure Sore Wound Culture - Preliminary Acinetobacter baumannii 07/08/25 15:07 Tissue - Ischial Pressure Sore Anaerobic Culture - Preliminary No growth in 48 hours. 07/08/25 15:07 Wound - Leg, Left Gram Stain - Final 07/08/25 15:07 Wound - Leg, Left Wound Culture - Final Enterobacter cloacae complex 07/08/25 15:07 Wound - Leg, Left Anaerobic Culture - Preliminary No growth in 48 hours. 07/06/25 10:33 Tissue Ulcer - Sacral Pressure Sore Gram Stain - Final 07/06/25 10:33 Tissue Ulcer - Sacral Pressure Sore Wound Culture - Final No growth aerobically. 07/06/25 10:33 Tissue Ulcer - Sacral Pressure Sore Anaerobic Culture - Final No growth in 5 days. 07/06/25 10:40 Bone - Ischial Bone Gram Stain - Final 07/06/25 10:40 Bone - Ischial Bone Wound Culture - Final No growth aerobically. 07/06/25 10:40 Bone - Ischial Bone Anaerobic Culture - Final No growth in 5 days. 07/06/25 10:36 Bone - Sacral Bone Gram Stain - Final 07/06/25 10:36 Bone - Sacral Bone Wound Culture - Final No growth aerobically. 07/06/25 10:36 Bone - Sacral Bone Anaerobic Culture - Final No growth in 5 days. 07/06/25 10:37 Tissue Ulcer - Ischial Pressure Sore Gram Stain - Final 07/06/25 10:37 Tissue Ulcer - Ischial Pressure Sore Wound Culture - Final Meth. resistant Staph. aureus 07/06/25 10:37 Tissue Ulcer - Ischial Pressure Sore Anaerobic Culture - Final No anaerobic bacteria isolated. Pharmacy Plan for Drug Dosing Pharmacy Plan for Drug Dosing: VANCOMYCIN LEVEL RECEIVED Current Vancomycin Dose: 1250mg IV Q12hr Number of Doses Received: 3 (of current regimen) Vancomycin Level: 15.7 (goal 15-20) Hours Since Last Dose: 11.5hr Renal Function: SCr 0.4/ CrCl 218 mL/min Renal Function Trend: stable Lab/Micro: Wcx growing MRSA Vancomycin Plan/Comments: patient had a trough draw which resulted in a value of 15.7 (goal 15-20). Will continue current dose of vancomycin. Will recheck a trough in 2 days to assess dosing at that time. Pending Level: 07/13/25 @0930 Pharmacy Service will continue to monitor and adjust dosing as required.
[2025-07-11] MEDS: LACTASE 3,000 UNIT TABLET 3000 UNIT PO ×2 (11:57→17:03)
[2025-07-11] MEDS: Vancomycin HCl 1,250 MG in 0.9% Normal Saline (250mL Bag) 250 ML 167 MG IV ×2 (11:57→22:09)
[2025-07-11] MEDS: 0.9% Normal Saline (250mL Bag) 250 ML 15 ML IV (11:58)
--- NOTE | 2025-07-11 12:24 | ANES.CONFIRM ---
Anesthesia: Confirm Documents Multiple Procedures on Account (2) Confirmed Documents: Yes
[2025-07-11 12:39] VITALS: BP 109/60
--- NOTE | 2025-07-11 12:42 | PCM.PN.SRG ---
Subjective Subjective WBC normalizing VS stable. Patient feels well overall today. Objective Data Objective Data Vital Signs: Vital Signs Temp Pulse Resp BP Pulse Ox O2 Del Method O2 Flow Rate 98 F 78 16 109/60 98 Room Air 6 07/11/25 09:00 07/11/25 09:00 07/11/25 09:00 07/11/25 12:39 07/11/25 09:00 07/11/25 09:00 07/08/25 17:20 Oxygen Flow Rate (L/min) 6 Oxygen Delivery Method Room Air Weight: 175 lb 0.012 oz Body Mass Index (BMI) 25.8 Intake & Output: Intake and Output for Last 24 Hours 07/09/25 07/10/25 07/11/25 23:59 23:59 23:59 Intake Total 2832.5 / 2932.5 3975 / 4275 1371.0 / 1371.0 Output Total 1278 / 1278 2470 / 2470 1125 / 1125 Balance 1554.5 / 1654.5 1505 / 1805 246.0 / 246.0 Lab / Micro Data 07/11/25 06:50 07/11/25 06:50 Labs: Laboratory Results - last 24 hr 07/11/25 06:50: WBC 9.9, RBC 3.11 L, Hgb 7.3 L, Hct 23.9 L, MCV 76.8 L, MCH 23.5 L, MCHC 30.5 L, RDW Std Deviation 55.3 H, RDW Coeff of Gila 19.8 H, Plt Count 455 H, MPV 9.7, Immature Gran % (Auto) 0.500, Neut % (Auto) 62.2, Lymph % (Auto) 19.3, [place] % (Auto) 10.3 H, Eos % (Auto) 7.3 H, Baso % (Auto) 0.4, Absolute Neuts (auto) 6.1, Absolute Lymphs (auto) 1.90, Nucleated RBC % 0, Sodium 139, Potassium 3.6, Chloride 109 H, Carbon Dioxide 23.7, Anion Gap 7, BUN 11, Creatinine 0.40 L, Estim Creat Clear Calc 218.48, Est GFR (MDRD) Non-Af 132, BUN/Creatinine Ratio 26.0 H, Glucose 93, Calcium 7.2 L 07/11/25 09:18: Vancomycin Trough 15.7 H Micro: Microbiology 07/08/25 15:07 Tissue - Ischial Pressure Sore Gram Stain - Final 07/08/25 15:07 Tissue - Ischial Pressure Sore Wound Culture - Preliminary Acinetobacter baumannii 07/08/25 15:07 Tissue - Ischial Pressure Sore Anaerobic Culture - Preliminary No growth in 48 hours. 07/08/25 15:07 Bone - Sacral Bone Gram Stain - Final 07/08/25 15:07 Bone - Sacral Bone Wound Culture - Final Enterobacter cloacae complex 07/08/25 15:07 Bone - Sacral Bone Anaerobic Culture - Preliminary 07/08/25 15:07 Tissue - Sacral Gram Stain - Final 07/08/25 15:07 Tissue - Sacral Wound Culture - Final Enterobacter cloacae complex 07/08/25 15:07 Tissue - Sacral Anaerobic Culture - Preliminary No growth in 48 hours. 07/08/25 15:07 Wound - Leg, Left Gram Stain - Final 07/08/25 15:07 Wound - Leg, Left Wound Culture - Final Enterobacter cloacae complex 07/08/25 15:07 Wound - Leg, Left Anaerobic Culture - Preliminary No growth in 48 hours. 07/06/25 10:33 Tissue Ulcer - Sacral Pressure Sore Gram Stain - Final 07/06/25 10:33 Tissue Ulcer - Sacral Pressure Sore Wound Culture - Final No growth aerobically. 07/06/25 10:33 Tissue Ulcer - Sacral Pressure Sore Anaerobic Culture - Final No growth in 5 days. 07/06/25 10:40 Bone - Ischial Bone Gram Stain - Final 07/06/25 10:40 Bone - Ischial Bone Wound Culture - Final No growth aerobically. 07/06/25 10:40 Bone - Ischial Bone Anaerobic Culture - Final No growth in 5 days. 07/06/25 10:36 Bone - Sacral Bone Gram Stain - Final 07/06/25 10:36 Bone - Sacral Bone Wound Culture - Final No growth aerobically. 07/06/25 10:36 Bone - Sacral Bone Anaerobic Culture - Final No growth in 5 days. 07/06/25 10:37 Tissue Ulcer - Ischial Pressure Sore Gram Stain - Final 07/06/25 10:37 Tissue Ulcer - Ischial Pressure Sore Wound Culture - Final Meth. resistant Staph. aureus 07/06/25 10:37 Tissue Ulcer - Ischial Pressure Sore Anaerobic Culture - Final No anaerobic bacteria isolated. Physical Exam Narrative Afebrile/vss Readjusted in bed to lie on his side Wound VAC is intact with good suction 2 LOLIS drains with appropriate output. Flap is pink and well perfused over sacral window. Avalos catheter intact and patent. Assessment & Plan Assessment/Plan (1) Osteomyelitis, chronic, pelvic region: QUALIFIERS: Laterality: right Qualified Code(s): M86.651 - Other chronic osteomyelitis, right thigh (2) Decubitus ulcer of ischial area, stage 4: QUALIFIERS: Laterality: unspecified laterality Qualified Code(s): L89.304 - Pressure ulcer of unspecified buttock, stage 4 PLAN: Plan POD #3 flap reconstruction with drain and wound VAC placement. POD#4 right sacral wound excision with irrigating wound VAC placement Pain control: per NOV Plan for wound VAC to remain in place with removal on Sunday and replaced with Provena VAC incision care: Reinforced the importance of not laying on the incision and change positions every 2 hours with nursing. Drain care: Leave in place. 07/08 right ischial tissue culture shows acinetobactor baumanii, further sensitivity pending. Per ID: Tissue cx now with MRSA. OR 07/08/25 for flap. Surg cx 07/08 now showing GNR. On vanc/cefazolin/flagyl, will change cefazolin to ceftriaxone. Due to poor iv access, will order picc. Not clear if will need iv or po abx at discharge but will require 6 weeks total course. DVT ppx: SCD's and SQ Lovenox resumed 07/09. He's declining lovenox Dispo: Will benefit from TCU vs rehab stay.
--- NOTE | 2025-07-11 13:22 | PCM.PN.HOSP ---
Subjective Subjective Buttock and leg cramp pain. Medications helping. Objective Data Objective Data Vital Signs: Vital Signs Temp Pulse Resp BP Pulse Ox O2 Del Method O2 Flow Rate 36.6 C 78 16 109/60 98 Room Air 6 07/11/25 09:00 07/11/25 09:00 07/11/25 09:00 07/11/25 12:39 07/11/25 09:00 07/11/25 09:00 07/08/25 17:20 Oxygen Flow Rate (L/min) 6 Oxygen Delivery Method Room Air Weight: 79.379 kg Body Mass Index (BMI) 25.8 Intake & Output: Intake and Output for Last 24 Hours 07/09/25 07/10/25 07/11/25 23:59 23:59 23:59 Intake Total 2832.5 / 2932.5 3975 / 4275 1371.0 / 1371.0 Output Total 1278 / 1278 2470 / 2470 1125 / 1125 Balance 1554.5 / 1654.5 1505 / 1805 246.0 / 246.0 Lab / Micro Data 07/11/25 06:50 07/11/25 06:50 Labs: Laboratory Results - last 24 hr 07/11/25 06:50: WBC 9.9, RBC 3.11 L, Hgb 7.3 L, Hct 23.9 L, MCV 76.8 L, MCH 23.5 L, MCHC 30.5 L, RDW Std Deviation 55.3 H, RDW Coeff of Gila 19.8 H, Plt Count 455 H, MPV 9.7, Immature Gran % (Auto) 0.500, Neut % (Auto) 62.2, Lymph % (Auto) 19.3, [place] % (Auto) 10.3 H, Eos % (Auto) 7.3 H, Baso % (Auto) 0.4, Absolute Neuts (auto) 6.1, Absolute Lymphs (auto) 1.90, Nucleated RBC % 0, Sodium 139, Potassium 3.6, Chloride 109 H, Carbon Dioxide 23.7, Anion Gap 7, BUN 11, Creatinine 0.40 L, Estim Creat Clear Calc 218.48, Est GFR (MDRD) Non-Af 132, BUN/Creatinine Ratio 26.0 H, Glucose 93, Calcium 7.2 L 07/11/25 09:18: Vancomycin Trough 15.7 H Micro: Microbiology 07/08/25 15:07 Tissue - Ischial Pressure Sore Gram Stain - Final 07/08/25 15:07 Tissue - Ischial Pressure Sore Wound Culture - Preliminary Acinetobacter baumannii 07/08/25 15:07 Tissue - Ischial Pressure Sore Anaerobic Culture - Preliminary No growth in 48 hours. 07/08/25 15:07 Bone - Sacral Bone Gram Stain - Final 07/08/25 15:07 Bone - Sacral Bone Wound Culture - Final Enterobacter cloacae complex 07/08/25 15:07 Bone - Sacral Bone Anaerobic Culture - Preliminary 07/08/25 15:07 Tissue - Sacral Gram Stain - Final 07/08/25 15:07 Tissue - Sacral Wound Culture - Final Enterobacter cloacae complex 07/08/25 15:07 Tissue - Sacral Anaerobic Culture - Preliminary No growth in 48 hours. 07/08/25 15:07 Wound - Leg, Left Gram Stain - Final 07/08/25 15:07 Wound - Leg, Left Wound Culture - Final Enterobacter cloacae complex 07/08/25 15:07 Wound - Leg, Left Anaerobic Culture - Preliminary No growth in 48 hours. 07/06/25 10:33 Tissue Ulcer - Sacral Pressure Sore Gram Stain - Final 07/06/25 10:33 Tissue Ulcer - Sacral Pressure Sore Wound Culture - Final No growth aerobically. 07/06/25 10:33 Tissue Ulcer - Sacral Pressure Sore Anaerobic Culture - Final No growth in 5 days. 07/06/25 10:40 Bone - Ischial Bone Gram Stain - Final 07/06/25 10:40 Bone - Ischial Bone Wound Culture - Final No growth aerobically. 07/06/25 10:40 Bone - Ischial Bone Anaerobic Culture - Final No growth in 5 days. 07/06/25 10:36 Bone - Sacral Bone Gram Stain - Final 07/06/25 10:36 Bone - Sacral Bone Wound Culture - Final No growth aerobically. 07/06/25 10:36 Bone - Sacral Bone Anaerobic Culture - Final No growth in 5 days. 07/06/25 10:37 Tissue Ulcer - Ischial Pressure Sore Gram Stain - Final 07/06/25 10:37 Tissue Ulcer - Ischial Pressure Sore Wound Culture - Final Meth. resistant Staph. aureus 07/06/25 10:37 Tissue Ulcer - Ischial Pressure Sore Anaerobic Culture - Final No anaerobic bacteria isolated. Physical Exam Const alert and no apparent distress Constitutional Narrative: flat affect. Assessment & Plan Assessment/Plan (1) Decubitus ulcer of ischial area, stage 4: QUALIFIERS: Laterality: unspecified laterality Qualified Code(s): L89.304 - Pressure ulcer of unspecified buttock, stage 4 PLAN: Status post excision of stage IV ulcer down to bone form 8 cm. Excision of right ischial ulcer down to the bone stage IV 4 to 3 cm. Placement of irrigating wound VAC over the wounds. Pt underwent right gluteal myocutaneous flap. Wound culture growing out gram negative rods Abx w vanc, cefazolin and metronidazole. Will DC IVF as pt is on a regular diet. (2) Leg muscle spasm: PLAN: Continue baclofen, gabapentin, scheduled oxycodone (his home regimen) Will add scheduled acetaminophen. Pt endorses that his pain has been controlled with medications. The hydromorphone has been contributing to hypotension, so will discontinue. (3) Fever: PLAN: post-operatively did have MRSA on wound culture on the 3rd. continue vancomycin, cefazolin, metronidazole. ID following. (4) Hypotension: PLAN: post operatively overall improved. caution with narcotics (5) Anemia: PLAN: acute blood loss. Hg 10/30 was 9.9, now down to 7.3 after 2 surgeries. Post-operative blood loss. No need to transfuse (hold transfusion until hg less than or equal to 7), but would continue to monitor Follow up labs in AM. PLAN: Plan Paraplegia: Complicates care and recovery. Hypertension: Continue verapamil Chronic Avalos. Patient has Avalos catheter change intermittently. Apparently the bulb of the catheter is not within the urethra. Dr. Alejandro reached out to urology who advised for the patient to follow-up with his regular urologist as outpatient as this was placed as outpatient.. The catheter is draining fine so we will leave it as is for now but if it does become obstructed then that will either need to be replaced or urology will need to be formally consulted. VTE prophylaxis with enoxaparin Charges/Coding Visit Charges Inpatient E&M: 99309 [facility] H[facility] L1
[2025-07-11 17:00] VITALS: BP 89/69; PULSE 82; RESP 16; TEMP 37; O2SAT 97
[2025-07-11 20:09] VITALS: BP 102/78; PULSE 86; RESP 16; TEMP 37.1; O2SAT 95
[2025-07-11] MEDS: hydrOXYzine PAM 25 MG Capsule 50 MG PO (22:36)
[2025-07-11 22:43] VITALS: BP 108/76
[2025-07-12 03:23] VITALS: BP 115/76; PULSE 91; RESP 18; TEMP 37.1; O2SAT 96
[2025-07-12 07:57] LABS: Hematocrit 23.3 % (40-54); Hemoglobin 7.1 g/dL (13.0-16.5); Mean Corp Hgb Conc 30.5 g/dL (32-36); Mean Corpuscular Volume 76.9 fL (80-94); Mean Platelet Vol. 10.0 fl (6.2-12.0); Platelet Count 466 K/mm3 (150-450); RBC Distribution Width CV 19.7 % (11.6-14.6); RBC Distribution Width SD 54.7 fl (35.1-43.9); Red Blood Count 3.03 M/mm3 (4.6-6.2); White Blood Count 8.1 K/mm3 (4.4-11.0)
[2025-07-12 08:24] LABS: Anion Gap 7 (5-15); BUN 9 mg/dL (4-19); BUN/Creat Ratio 21.0 RATIO (10-20); Calcium,Total 7.5 mg/dL (7.6-11.0); Carbon Dioxide 23.7 mmol/L (21.0-32.0); Chloride 111 mmol/L (98-108); Estimated Creatinine Clearance 208.08 ml/min (50-250); Glucose 100 mg/dL (70-99); Potassium 3.2 mmol/L (3.3-5.1)
--- NOTE | 2025-07-12 09:07 | PN.HOSP_ITS ---
Subjective Subjective Saw patient at bedside this morning. Patient was sleeping and remained fatigued appearing during our encounter but was answering questions appropriately. Continues to report pain in the sacral area, similar to previous days. No other new concerns this morning. Objective Data Objective Data Vital Signs: Vital Signs Temp Pulse Resp BP Pulse Ox O2 Del Method O2 Flow Rate 98.8 F 91 18 115/76 96 Room Air 6 07/12/25 03:23 07/12/25 03:23 07/12/25 03:23 07/12/25 03:23 07/12/25 03:23 07/12/25 03:23 07/08/25 17:20 Oxygen Flow Rate (L/min) 6 Oxygen Delivery Method Room Air Weight: 79.379 kg Body Mass Index (BMI) 25.8 Intake & Output: Intake and Output for Last 24 Hours 07/10/25 07/11/25 07/12/25 23:59 23:59 23:59 Intake Total 3975 / 4275 1998.4 / 2273.4 988.4 / 988.4 Output Total 2470 / 2470 1979 / 1979 1959 / 1959 Balance 1505 / 1805 18.4 / 293.4 -971.6 / -971.6 Lab / Micro Data 07/12/25 07:46 07/12/25 07:46 Labs: Laboratory Results - last 24 hr 07/11/25 09:18: Vancomycin Trough 15.7 H 07/12/25 07:46: WBC 8.1, RBC 3.03 L, Hgb 7.1 L, Hct 23.3 L, MCV 76.9 L, MCH 23.4 L, MCHC 30.5 L, RDW Std Deviation 54.7 H, RDW Coeff of Gila 19.7 H, Plt Count 466 H, MPV 10.0, Sodium 142, Potassium 3.2 L, Chloride 111 H, Carbon Dioxide 23.7, Anion Gap 7, BUN 9, Creatinine 0.42 L, Estim Creat Clear Calc 208.08, Est GFR (MDRD) Non-Af 130, BUN/Creatinine Ratio 21.0 H, Glucose 100 H, Calcium 7.5 L Micro: Microbiology 07/08/25 15:07 Tissue - Ischial Pressure Sore Gram Stain - Final 07/08/25 15:07 Tissue - Ischial Pressure Sore Wound Culture - Preliminary Acinetobacter baumannii 07/08/25 15:07 Tissue - Ischial Pressure Sore Anaerobic Culture - Preliminary No growth in 48 hours. 07/08/25 15:07 Bone - Sacral Bone Gram Stain - Final 07/08/25 15:07 Bone - Sacral Bone Wound Culture - Final Enterobacter cloacae complex 07/08/25 15:07 Bone - Sacral Bone Anaerobic Culture - Preliminary 07/08/25 15:07 Tissue - Sacral Gram Stain - Final 07/08/25 15:07 Tissue - Sacral Wound Culture - Final Enterobacter cloacae complex 07/08/25 15:07 Tissue - Sacral Anaerobic Culture - Preliminary No growth in 48 hours. 07/08/25 15:07 Wound - Leg, Left Gram Stain - Final 07/08/25 15:07 Wound - Leg, Left Wound Culture - Final Enterobacter cloacae complex 07/08/25 15:07 Wound - Leg, Left Anaerobic Culture - Preliminary No growth in 48 hours. 07/06/25 10:33 Tissue Ulcer - Sacral Pressure Sore Gram Stain - Final 07/06/25 10:33 Tissue Ulcer - Sacral Pressure Sore Wound Culture - Final No growth aerobically. 07/06/25 10:33 Tissue Ulcer - Sacral Pressure Sore Anaerobic Culture - Final No growth in 5 days. 07/06/25 10:40 Bone - Ischial Bone Gram Stain - Final 07/06/25 10:40 Bone - Ischial Bone Wound Culture - Final No growth aerobically. 07/06/25 10:40 Bone - Ischial Bone Anaerobic Culture - Final No growth in 5 days. 07/06/25 10:36 Bone - Sacral Bone Gram Stain - Final 07/06/25 10:36 Bone - Sacral Bone Wound Culture - Final No growth aerobically. 07/06/25 10:36 Bone - Sacral Bone Anaerobic Culture - Final No growth in 5 days. 07/06/25 10:37 Tissue Ulcer - Ischial Pressure Sore Gram Stain - Final 07/06/25 10:37 Tissue Ulcer - Ischial Pressure Sore Wound Culture - Final Meth. resistant Staph. aureus 07/06/25 10:37 Tissue Ulcer - Ischial Pressure Sore Anaerobic Culture - Final No anaerobic bacteria isolated. Physical Exam Const alert and no apparent distress Constitutional Narrative: flat affect. Assessment & Plan Assessment/Plan (1) Decubitus ulcer of ischial area, stage 4: QUALIFIERS: Laterality: unspecified laterality Qualified Code(s): L89.304 - Pressure ulcer of unspecified buttock, stage 4 (2) Leg muscle spasm: (3) Fever: (4) Hypotension: (5) Anemia: PLAN: Plan Patient is a 49-year-old male who presented to [facility] on 07/06/2025 for planned debridement of stage IV sacral ulcer with plastic surgery. Medicine consulted postoperatively for assistance with medical management. Decubitus ulcer of ischial area, stage IV -Status post excision of stage IV ulcer down to bone form 8 cm and excision of right ischial ulcer down to the bone stage IV 4 to 3 cm on 07/06. Placement of irrigating wound VAC over the wounds. -Pt underwent right gluteal myocutaneous flap on 07/08. -Wound culture growing out gram negative rods. -Abx w vanc, cefiderocol, flagyl and po minocycline. Per ID, planning for 6 weeks IV antibiotics on discharge. -IVF dc'ed on 07/11 as pt is on a regular diet. -ID following. Leg muscle spasm -Continue baclofen, gabapentin, scheduled oxycodone (his home regimen) -Added scheduled acetaminophen. -Pt endorses that his pain has been controlled with medications. The hydromorphone has been contributing to hypotension so was dc'ed. Fever -post-operatively -did have MRSA on wound culture on the . -continue abx as above -ID following as above. Hypotension -post operatively overall improved. -caution with narcotics Anemia -acute blood loss. Hg /30 was 9.9, now down to 7.3 after 2 surgeries. Post- operative blood loss. -Hemoglobin 7.1 on 07/12. Continue to monitor CBC daily and can transfuse for hemoglobin less than 7. Paraplegia: Complicates care and recovery. Hypertension: Continue verapamil Chronic Avalos. Patient has Avalos catheter change intermittently. Apparently the bulb of the catheter is not within the urethra. Dr. Alejandro reached out to urology who advised for the patient to follow-up with his regular urologist as outpatient as this was placed as outpatient. The catheter is draining fine so we will leave it as is for now but if it does become obstructed then that will either need to be replaced or urology will need to be formally consulted. VTE prophylaxis: enoxaparin Total clinical time spent by myself addressing the patient's medical issues, reviewing all the data, and collaborating with patient's care team: 37 minutes. Charges/Coding Visit Charges Inpatient E&M: 17143 Subs Hosp L2
[2025-07-12] MEDS: LACTASE 3,000 UNIT TABLET 3000 UNIT PO ×2 (09:42→16:28)
[2025-07-12] MEDS: Vancomycin HCl 1,250 MG in 0.9% Normal Saline (250mL Bag) 250 ML 250 MG IV (09:43)
[2025-07-12] MEDS: Lactobacillis Acidophilus 1 CAP PO (09:43)
[2025-07-12 10:00] VITALS: BP 110/75; PULSE 79; RESP 16; TEMP 36.5; O2SAT 97
[2025-07-12] MEDS: 0.9% Saline Lock 10 ML Syringe IV ×2 (10:01→22:27)
--- NOTE | 2025-07-12 12:21 | PCM.PN.SRG ---
Subjective Subjective Patient tolerating positioning, but nursing reporting he's not eating much. Discussed improved nutrition for wound healing with the patient. Objective Data Objective Data Vital Signs: Vital Signs Temp Pulse Resp BP Pulse Ox O2 Del Method O2 Flow Rate 97.7 F L 79 16 110/75 97 Room Air 6 07/12/25 10:00 07/12/25 10:00 07/12/25 10:00 07/12/25 10:00 07/12/25 10:00 07/12/25 10:00 07/08/25 17:20 Oxygen Flow Rate (L/min) 6 Oxygen Delivery Method Room Air Weight: 175 lb 0.012 oz Body Mass Index (BMI) 25.8 Intake & Output: Intake and Output for Last 24 Hours 07/10/25 07/11/25 07/12/25 23:59 23:59 23:59 Intake Total 3975 / 4275 1998.4 / 2273.4 1385.8 / 1385.8 Output Total 2470 / 2470 1979 / 1979 1979 / 1979 Balance 1505 / 1805 18.4 / 293.4 -594.2 / -594.2 Lab / Micro Data 07/12/25 07:46 07/12/25 07:46 Labs: Laboratory Results - last 24 hr 07/12/25 07:46: WBC 8.1, RBC 3.03 L, Hgb 7.1 L, Hct 23.3 L, MCV 76.9 L, MCH 23.4 L, MCHC 30.5 L, RDW Std Deviation 54.7 H, RDW Coeff of Gila 19.7 H, Plt Count 466 H, MPV 10.0, Sodium 142, Potassium 3.2 L, Chloride 111 H, Carbon Dioxide 23.7, Anion Gap 7, BUN 9, Creatinine 0.42 L, Estim Creat Clear Calc 208.08, Est GFR (MDRD) Non-Af 130, BUN/Creatinine Ratio 21.0 H, Glucose 100 H, Calcium 7.5 L Micro: Microbiology 07/08/25 15:07 Tissue - Ischial Pressure Sore Gram Stain - Final 07/08/25 15:07 Tissue - Ischial Pressure Sore Wound Culture - Preliminary Acinetobacter baumannii 07/08/25 15:07 Tissue - Ischial Pressure Sore Anaerobic Culture - Preliminary No growth in 48 hours. 07/08/25 15:07 Bone - Sacral Bone Gram Stain - Final 07/08/25 15:07 Bone - Sacral Bone Wound Culture - Final Enterobacter cloacae complex 07/08/25 15:07 Bone - Sacral Bone Anaerobic Culture - Preliminary 07/08/25 15:07 Tissue - Sacral Gram Stain - Final 07/08/25 15:07 Tissue - Sacral Wound Culture - Final Enterobacter cloacae complex 07/08/25 15:07 Tissue - Sacral Anaerobic Culture - Preliminary No growth in 48 hours. 07/08/25 15:07 Wound - Leg, Left Gram Stain - Final 07/08/25 15:07 Wound - Leg, Left Wound Culture - Final Enterobacter cloacae complex 07/08/25 15:07 Wound - Leg, Left Anaerobic Culture - Preliminary No growth in 48 hours. 07/06/25 10:33 Tissue Ulcer - Sacral Pressure Sore Gram Stain - Final 07/06/25 10:33 Tissue Ulcer - Sacral Pressure Sore Wound Culture - Final No growth aerobically. 07/06/25 10:33 Tissue Ulcer - Sacral Pressure Sore Anaerobic Culture - Final No growth in 5 days. 07/06/25 10:40 Bone - Ischial Bone Gram Stain - Final 07/06/25 10:40 Bone - Ischial Bone Wound Culture - Final No growth aerobically. 07/06/25 10:40 Bone - Ischial Bone Anaerobic Culture - Final No growth in 5 days. 07/06/25 10:36 Bone - Sacral Bone Gram Stain - Final 07/06/25 10:36 Bone - Sacral Bone Wound Culture - Final No growth aerobically. 07/06/25 10:36 Bone - Sacral Bone Anaerobic Culture - Final No growth in 5 days. 07/06/25 10:37 Tissue Ulcer - Ischial Pressure Sore Gram Stain - Final 07/06/25 10:37 Tissue Ulcer - Ischial Pressure Sore Wound Culture - Final Meth. resistant Staph. aureus 07/06/25 10:37 Tissue Ulcer - Ischial Pressure Sore Anaerobic Culture - Final No anaerobic bacteria isolated. Physical Exam Narrative Afebrile/vss Laying on the side Wound VAC is intact with good suction 2 LOLIS drains with appropriate output. Flap is pink and well perfused over sacral window. Avalos catheter intact and patent. Assessment & Plan Assessment/Plan (1) Osteomyelitis, chronic, pelvic region: QUALIFIERS: Laterality: right Qualified Code(s): M86.651 - Other chronic osteomyelitis, right thigh PLAN: Plan POD #4 flap reconstruction with drain and wound VAC placement. Pain control: per NOV Plan for wound VAC to remain in place with removal on Sunday and replaced with Provena VAC incision care: Reinforced the importance of not laying on the incision and change positions every 2 hours with nursing. Drain care: Leave in place. 07/08 right ischial tissue culture shows acinetobactor baumanii, further sensitivity pending. Per ID: Tissue cx now with MRSA. OR 07/08/25 for flap. Surg cx 07/08 now showing GNR. On vanc/cefazolin/flagyl, will change cefazolin to ceftriaxone. Due to poor iv access, will order picc. Not clear if will need iv or po abx at discharge but will require 6 weeks total course. DVT ppx: SCD's and SQ Lovenox resumed 07/09. He's declining lovenox Dispo: Will benefit from TCU vs rehab stay.
[2025-07-12 14:02] VITALS: BP 117/76; PULSE 82; RESP 16; TEMP 36.7; O2SAT 97
[2025-07-12 22:11] VITALS: BP 126/82; PULSE 95; RESP 16; TEMP 37; O2SAT 98
[2025-07-12] MEDS: Vancomycin HCl 1,250 MG in 0.9% Normal Saline (250mL Bag) 250 ML 167 MG IV (22:27)
[2025-07-12] MEDS: hydrOXYzine PAM 25 MG Capsule 50 MG PO (23:58)
[2025-07-13 04:39] VITALS: BP 130/94; PULSE 88; RESP 16; TEMP 36.7; O2SAT 96
[2025-07-13 08:33] VITALS: BP 100/73; PULSE 71; RESP 16; TEMP 36.9; O2SAT 97
--- NOTE | 2025-07-13 08:49 | CASEMGMT ---
Discharge Planning Updates sent via [facility] to [facility]. Precert remains pending. Nirmala Ennis DC Planning Asst.
[2025-07-13] MEDS: Lactobacillis Acidophilus 1 CAP PO (09:10)
[2025-07-13] MEDS: LACTASE 3,000 UNIT TABLET 3000 UNIT PO ×3 (09:10→18:03)
[2025-07-13] MEDS: Vancomycin Trough/Random Due 1 LAB MC ×2 (09:10→21:26)
[2025-07-13] MEDS: hydrOXYzine PAM 25 MG Capsule 50 MG PO ×2 (09:11→15:30)
[2025-07-13 09:17] LABS: Hematocrit 25.2 % (40-54); Hemoglobin 7.7 g/dL (13.0-16.5); Mean Corp Hgb Conc 30.6 g/dL (32-36); Mean Corpuscular Volume 76.8 fL (80-94); Mean Platelet Vol. 10.3 fl (6.2-12.0); Platelet Count 466 K/mm3 (150-450); RBC Distribution Width CV 19.8 % (11.6-14.6); RBC Distribution Width SD 55.5 fl (35.1-43.9); Red Blood Count 3.28 M/mm3 (4.6-6.2); White Blood Count 9.2 K/mm3 (4.4-11.0)
[2025-07-13 09:54] LABS: Vancomycin, Trough Level 23.0 ug/mL (5.0-15.0)
[2025-07-13 09:55] LABS: Anion Gap 8 (5-15); BUN 10 mg/dL (4-19); BUN/Creat Ratio 22.5 RATIO (10-20); Calcium,Total 8.2 mg/dL (7.6-11.0); Carbon Dioxide 24.6 mmol/L (21.0-32.0); Chloride 109 mmol/L (98-108); Estimated Creatinine Clearance 189.98 ml/min (50-250); Glucose 86 mg/dL (70-99); Potassium 3.5 mmol/L (3.3-5.1)
--- NOTE | 2025-07-13 09:59 | PCM.RX.CS ---
Consult Antibiotic Management Pharmacy has been consulted to manage selected antibiotic: Vancomycin Type of Intervention Type of Consult: Follow-up Suspected Infection Suspected Infection: Skin/Soft tissue Prior Doses of Antibiotics Prior Doses of Antibiotics Received/Current Regimen: Vancomycin 1250 mg Q12H last dose given 07/12/25 @ 2227 Labs Labs: Sodium 141 mmol/L (133-145) 07/13/25 09:10 Potassium 3.5 mmol/L (3.3-5.1) 07/13/25 09:10 Chloride 109 mmol/L (98-108) H 07/13/25 09:10 Carbon Dioxide 24.6 mmol/L (21.0-32.0) 07/13/25 09:10 Anion Gap 8 (5-15) 07/13/25 09:10 BUN 10 mg/dL (4-19) 07/13/25 09:10 Creatinine 0.46 mg/dL (0.70-1.20) L 07/13/25 09:10 Est GFR (MDRD) Non-Af 127 (>60) 07/13/25 09:10 BUN/Creatinine Ratio 22.5 RATIO (10-20) H 07/13/25 09:10 Glucose 86 mg/dL (70-99) 07/13/25 09:10 Vancomycin Trough 23.0 ug/mL (5.0-15.0) H 07/13/25 09:10 Random Vancomycin 14.9 ug/mL (0.0-15.0) 07/09/25 20:50 Microbiology Microbiology: Microbiology 07/08/25 15:07 Tissue - Ischial Pressure Sore Gram Stain - Final 07/08/25 15:07 Tissue - Ischial Pressure Sore Wound Culture - Preliminary Acinetobacter baumannii 07/08/25 15:07 Tissue - Ischial Pressure Sore Anaerobic Culture - Preliminary No growth in 48 hours. 07/08/25 15:07 Bone - Sacral Bone Gram Stain - Final 07/08/25 15:07 Bone - Sacral Bone Wound Culture - Final Enterobacter cloacae complex 07/08/25 15:07 Bone - Sacral Bone Anaerobic Culture - Preliminary 07/08/25 15:07 Tissue - Sacral Gram Stain - Final 07/08/25 15:07 Tissue - Sacral Wound Culture - Final Enterobacter cloacae complex 07/08/25 15:07 Tissue - Sacral Anaerobic Culture - Preliminary No growth in 48 hours. 07/08/25 15:07 Wound - Leg, Left Gram Stain - Final 07/08/25 15:07 Wound - Leg, Left Wound Culture - Final Enterobacter cloacae complex 07/08/25 15:07 Wound - Leg, Left Anaerobic Culture - Preliminary No growth in 48 hours. 07/06/25 10:33 Tissue Ulcer - Sacral Pressure Sore Gram Stain - Final 07/06/25 10:33 Tissue Ulcer - Sacral Pressure Sore Wound Culture - Final No growth aerobically. 07/06/25 10:33 Tissue Ulcer - Sacral Pressure Sore Anaerobic Culture - Final No growth in 5 days. 07/06/25 10:40 Bone - Ischial Bone Gram Stain - Final 07/06/25 10:40 Bone - Ischial Bone Wound Culture - Final No growth aerobically. 07/06/25 10:40 Bone - Ischial Bone Anaerobic Culture - Final No growth in 5 days. 07/06/25 10:36 Bone - Sacral Bone Gram Stain - Final 07/06/25 10:36 Bone - Sacral Bone Wound Culture - Final No growth aerobically. 07/06/25 10:36 Bone - Sacral Bone Anaerobic Culture - Final No growth in 5 days. 07/06/25 10:37 Tissue Ulcer - Ischial Pressure Sore Gram Stain - Final 07/06/25 10:37 Tissue Ulcer - Ischial Pressure Sore Wound Culture - Final Meth. resistant Staph. aureus 07/06/25 10:37 Tissue Ulcer - Ischial Pressure Sore Anaerobic Culture - Final No anaerobic bacteria isolated. Dosing Weight Weight used for dosin kg Estimated Creatinine Clearance Estimated Creatinine Clearance: ~ 190 Goal Trough Goal Trough: 15-20 mcg/mL Pharmacy Plan for Drug Dosing Pharmacy Plan for Drug Dosing: Vancomycin trough = 23.0, hold vancomycin, random level in 12 hours Pharmacy Service will continue to monitor and adjust dosing as required. Follow-Up Labs Follow-Up Labs: Trough: Vancomycin Date/Time Labs Ordered Labs to be done on [date and time ordered]: 07/13/25 @ 2100
--- NOTE | 2025-07-13 13:18 | CASEMGMT ---
[facility] has obtained auth to admit. ADRIANA CM updated. Nirmala Ennis DC Planning Asst.
--- NOTE | 2025-07-13 13:38 | NURSING ---
Per , wound vacs removed and dry dressings applied. Pt tolerated well.
--- NOTE | 2025-07-13 14:10 | CASEMGMT ---
Pt insurance approved. ID provided RN CM with IV antibiotics scripts. Scanned scripts and asked DC planning intern to send to [facility]. Notified Dr. Alejandro Pt insurance approved. ID planning to reach out to Dr. Alejandro to notify of IV antibiotics.
--- NOTE | 2025-07-13 14:45 | PCM.PN.ID ---
Physical Exam Narrative Feeling ok, no fever, no n/v. Const alert and no apparent distress General Appearance: cooperative Resp normal air movement and clear to auscultation bilaterally Cardio regular rate and regular rhythm GI soft to palpation, non-tender and non-distended Skin Skin Narrative: wound vac in place ID ID: Route of nutrition/ use of supplements: [] Nutritional Intake: [] IV Site: [] Avalos Catheter: [] Assessment & Plan Assessment/Plan (1) Osteomyelitis, chronic, pelvic region: QUALIFIERS: Laterality: right Qualified Code(s): M86.651 - Other chronic osteomyelitis, right thigh PLAN: necrotic bone seen in OR 07/06/[address] Alejandro. Tissue cx now with MRSA. OR 07/08/25 for flap. Surg cx 07/08 now showing MDR Acinetobacter from one sample, enterobacter from the others. Spoke with lab, requested additional testing for gent, cefiderocol, minocycline. On vanc/cefiderocol/lyly/flagyl. Plan on 6 weeks iv vanc and erta and po minocycline with weekly labs at discharge. Stop date 08/22/25. ID followup in 2-3 weeks. D/w Dr. Alejandro and insurance case manager. Will follow
[2025-07-13 15:31] VITALS: BP 116/80; PULSE 73; RESP 16; TEMP 36.7; O2SAT 99
--- NOTE | 2025-07-13 16:06 | PN.SURG_ITS ---
Subjective Subjective Doing well overall with positioning restrictions. Objective Data Objective Data Vital Signs: Vital Signs Temp Pulse Resp BP Pulse Ox O2 Del Method O2 Flow Rate 98.1 F 73 16 116/80 99 Room Air 6 07/13/25 15:31 07/13/25 15:31 07/13/25 15:31 07/13/25 15:31 07/13/25 15:31 07/13/25 15:31 07/08/25 17:20 Oxygen Flow Rate (L/min) 6 Oxygen Delivery Method Room Air Weight: 175 lb 0.012 oz Body Mass Index (BMI) 25.8 Intake & Output: Intake and Output for Last 24 Hours 07/11/25 07/12/25 07/13/25 23:59 23:59 23:59 Intake Total 1997.4 / 2273.4 1508.2 / 2108.2 2119.8 / 2119.8 Output Total 1979 / 1979 3960 / 3960 1390 / 1390 Balance 18.4 / 293.4 -2451.8 / -1851.8 729.8 / 729.8 Lab / Micro Data 07/13/25 09:10 07/13/25 09:10 Labs: Laboratory Results - last 24 hr 07/13/25 09:10: WBC 9.2, RBC 3.28 L, Hgb 7.7 L, Hct 25.2 L, MCV 76.8 L, MCH 23.5 L, MCHC 30.6 L, RDW Std Deviation 55.5 H, RDW Coeff of Gila 19.8 H, Plt Count 466 H, MPV 10.3, Sodium 141, Potassium 3.5, Chloride 109 H, Carbon Dioxide 24.6, Anion Gap 8, BUN 10, Creatinine 0.46 L, Estim Creat Clear Calc 189.98, Est GFR (MDRD) Non-Af 127, BUN/Creatinine Ratio 22.5 H, Glucose 86, Calcium 8.2, V ancomycin Trough 23.0 H Micro: Microbiology 07/08/25 15:07 Bone - Sacral Bone Gram Stain - Final 07/08/25 15:07 Bone - Sacral Bone Wound Culture - Final Enterobacter cloacae complex 07/08/25 15:07 Bone - Sacral Bone Anaerobic Culture - Final No anaerobic bacteria isolated. 07/08/25 15:07 Tissue - Ischial Pressure Sore Gram Stain - Final 07/08/25 15:07 Tissue - Ischial Pressure Sore Wound Culture - Preliminary Acinetobacter baumannii 07/08/25 15:07 Tissue - Ischial Pressure Sore Anaerobic Culture - Preliminary No growth in 48 hours. 07/08/25 15:07 Tissue - Sacral Gram Stain - Final 07/08/25 15:07 Tissue - Sacral Wound Culture - Final Enterobacter cloacae complex 07/08/25 15:07 Tissue - Sacral Anaerobic Culture - Preliminary No growth in 48 hours. 07/08/25 15:07 Wound - Leg, Left Gram Stain - Final 07/08/25 15:07 Wound - Leg, Left Wound Culture - Final Enterobacter cloacae complex 07/08/25 15:07 Wound - Leg, Left Anaerobic Culture - Preliminary No growth in 48 hours. 07/06/25 10:33 Tissue Ulcer - Sacral Pressure Sore Gram Stain - Final 07/06/25 10:33 Tissue Ulcer - Sacral Pressure Sore Wound Culture - Final No growth aerobically. 07/06/25 10:33 Tissue Ulcer - Sacral Pressure Sore Anaerobic Culture - Final No growth in 5 days. 07/06/25 10:40 Bone - Ischial Bone Gram Stain - Final 07/06/25 10:40 Bone - Ischial Bone Wound Culture - Final No growth aerobically. 07/06/25 10:40 Bone - Ischial Bone Anaerobic Culture - Final No growth in 5 days. 07/06/25 10:36 Bone - Sacral Bone Gram Stain - Final 07/06/25 10:36 Bone - Sacral Bone Wound Culture - Final No growth aerobically. 07/06/25 10:36 Bone - Sacral Bone Anaerobic Culture - Final No growth in 5 days. 07/06/25 10:37 Tissue Ulcer - Ischial Pressure Sore Gram Stain - Final 07/06/25 10:37 Tissue Ulcer - Ischial Pressure Sore Wound Culture - Final Meth. resistant Staph. aureus 07/06/25 10:37 Tissue Ulcer - Ischial Pressure Sore Anaerobic Culture - Final No anaerobic bacteria isolated. Physical Exam Narrative Afebrile/vss Laying on the side Wound VAC is intact with good suction Removed Flaps intact and viable. Suture line c/d/i 2 LOLIS drains with appropriate output. Flap is pink and well perfused over sacral window. Avalos catheter intact and patent. Assessment & Plan Assessment/Plan (1) Osteomyelitis, chronic, pelvic region: QUALIFIERS: Laterality: right Qualified Code(s): M86.651 - Other chronic osteomyelitis, right thigh (2) Ulcer of sacral region, stage 4: (3) Decubitus ulcer of ischial area, stage 4: QUALIFIERS: Laterality: unspecified laterality Qualified Code(s): L89.304 - Pressure ulcer of unspecified buttock, stage 4 PLAN: Plan Doing well Plan for no VAC today and incisional VAC tomorrow No laying on the right ischium or the sacrum Plan on DC tomorrow to rehab. F/u with me in 1 week at wound care center
--- NOTE | 2025-07-13 17:03 | PN.HOSP_ITS ---
Subjective Subjective Doing well, no issues overnight Objective Data Objective Data Vital Signs: Vital Signs Temp Pulse Resp BP Pulse Ox O2 Del Method O2 Flow Rate 98.1 F 73 16 116/80 99 Room Air 6 07/13/25 15:31 07/13/25 15:31 07/13/25 15:31 07/13/25 15:31 07/13/25 15:31 07/13/25 15:31 07/08/25 17:20 Oxygen Flow Rate (L/min) 6 Oxygen Delivery Method Room Air Weight: 175 lb 0.012 oz Body Mass Index (BMI) 25.8 Intake & Output: Intake and Output for Last 24 Hours 07/12/25 07/13/25 07/14/25 03:59 03:59 03:59 Intake Total 2095.8 / 2095.8 2108.2 / 2108.2 1122.4 / 1122.4 Output Total 2665 / 2665 2600 / 2600 1390 / 1390 Balance -569.2 / -569.2 -491.8 / -491.8 -267.6 / -267.6 Lab / Micro Data 07/13/25 09:10 07/13/25 09:10 Labs: Laboratory Results - last 24 hr 07/13/25 09:10: WBC 9.2, RBC 3.28 L, Hgb 7.7 L, Hct 25.2 L, MCV 76.8 L, MCH 23.5 L, MCHC 30.6 L, RDW Std Deviation 55.5 H, RDW Coeff of Gila 19.8 H, Plt Count 466 H, MPV 10.3, Sodium 141, Potassium 3.5, Chloride 109 H, Carbon Dioxide 24.6, Anion Gap 8, BUN 10, Creatinine 0.46 L, Estim Creat Clear Calc 189.98, Est GFR (MDRD) Non-Af 127, BUN/Creatinine Ratio 22.5 H, Glucose 86, Calcium 8.2, V ancomycin Trough 23.0 H Micro: Microbiology 07/08/25 15:07 Bone - Sacral Bone Gram Stain - Final 07/08/25 15:07 Bone - Sacral Bone Wound Culture - Final Enterobacter cloacae complex 07/08/25 15:07 Bone - Sacral Bone Anaerobic Culture - Final No anaerobic bacteria isolated. 07/08/25 15:07 Tissue - Ischial Pressure Sore Gram Stain - Final 07/08/25 15:07 Tissue - Ischial Pressure Sore Wound Culture - Preliminary Acinetobacter baumannii 07/08/25 15:07 Tissue - Ischial Pressure Sore Anaerobic Culture - Preliminary No growth in 48 hours. 07/08/25 15:07 Tissue - Sacral Gram Stain - Final 07/08/25 15:07 Tissue - Sacral Wound Culture - Final Enterobacter cloacae complex 07/08/25 15:07 Tissue - Sacral Anaerobic Culture - Preliminary No growth in 48 hours. 07/08/25 15:07 Wound - Leg, Left Gram Stain - Final 07/08/25 15:07 Wound - Leg, Left Wound Culture - Final Enterobacter cloacae complex 07/08/25 15:07 Wound - Leg, Left Anaerobic Culture - Preliminary No growth in 48 hours. 07/06/25 10:33 Tissue Ulcer - Sacral Pressure Sore Gram Stain - Final 07/06/25 10:33 Tissue Ulcer - Sacral Pressure Sore Wound Culture - Final No growth aerobically. 07/06/25 10:33 Tissue Ulcer - Sacral Pressure Sore Anaerobic Culture - Final No growth in 5 days. 07/06/25 10:40 Bone - Ischial Bone Gram Stain - Final 07/06/25 10:40 Bone - Ischial Bone Wound Culture - Final No growth aerobically. 07/06/25 10:40 Bone - Ischial Bone Anaerobic Culture - Final No growth in 5 days. 07/06/25 10:36 Bone - Sacral Bone Gram Stain - Final 07/06/25 10:36 Bone - Sacral Bone Wound Culture - Final No growth aerobically. 07/06/25 10:36 Bone - Sacral Bone Anaerobic Culture - Final No growth in 5 days. 07/06/25 10:37 Tissue Ulcer - Ischial Pressure Sore Gram Stain - Final 07/06/25 10:37 Tissue Ulcer - Ischial Pressure Sore Wound Culture - Final Meth. resistant Staph. aureus 07/06/25 10:37 Tissue Ulcer - Ischial Pressure Sore Anaerobic Culture - Final No anaerobic bacteria isolated. Physical Exam Narrative General: Alert, Oriented x3, Cooperative, No apparent distress HEENT: Atraumatic, PERRLA, EOMI, Normocephalic Oral: Moist Mucosa Neck: Supple, No JVD Lungs: Diminished, Normal air movement, No rhonchi, No wheeze, No rales Cardiovascular: Regular rate, Regular Rhythm, Normal S1, Normal S2, No murmurs Abdomen: Soft, Non Tender, Non-Distended, No Hepato-splenomegaly Extremities: No edema, Capillary Refill Less than 3 Seconds Skin: No rashes, No breakdown, pale Musculoskeletal: No Tenderness to Palpation of Joints or Extremities Neurological: No new focal neurological deficits, chronic neurological findings Psych/Mental Status: Normal Affect, Appropriate Assessment & Plan Assessment/Plan (1) Decubitus ulcer of ischial area, stage 4: QUALIFIERS: Laterality: unspecified laterality Qualified Code(s): L89.304 - Pressure ulcer of unspecified buttock, stage 4 (2) Leg muscle spasm: (3) Fever: (4) Hypotension: (5) Anemia: PLAN: Plan Decubitus ulcer of ischial area, stage IV -Status post excision of stage IV ulcer down to bone form 8 cm and excision of right ischial ulcer down to the bone stage IV 4 to 3 cm on 07/06. Placement of irrigating wound VAC over the wounds. -Pt underwent right gluteal myocutaneous flap on 07/08. -Wound culture growing out gram negative rods. -Abx w vanc, cefiderocol, flagyl and po minocycline. Per ID, planning for 6 weeks IV antibiotics on discharge. -IVF dc'ed on 07/11 as pt is on a regular diet. -ID following. 07/13/2025: Appreciate infectious disease and recommendations. Leg muscle spasm -Continue baclofen, gabapentin, scheduled oxycodone (his home regimen) -Added scheduled acetaminophen. -Pt endorses that his pain has been controlled with medications. The hydromorphone has been contributing to hypotension so was dc'ed. Fever -post-operatively -did have MRSA on wound culture on the . -continue abx as above -ID following as above. Hypotension -post operatively overall improved. -caution with narcotics Anemia -acute blood loss. Hg 07/02 was 9.9, now down to 7.3 after 2 surgeries. Post- operative blood loss. -Hemoglobin 7.1 on 07/12. Continue to monitor CBC daily and can transfuse for hemoglobin less than 7. 07/13/2025: If he continues to be low tomorrow we will obtain iron studies, today's hemoglobin 7.7 Paraplegia: Complicates care and recovery. Hypertension: Continue verapamil Chronic Avalos. Patient has Avalos catheter change intermittently. Apparently the bulb of the catheter is not within the urethra. Dr. Alejandro reached out to urology who advised for the patient to follow-up with his regular urologist as outpatient as this was placed as outpatient. The catheter is draining fine so we will leave it as is for now but if it does become obstructed then that will either need to be replaced or urology will need to be formally consulted. DVT: Lovenox Charges/Coding Visit Charges Inpatient E&M: 21267 Subs Hosp L2
[2025-07-13 21:02] VITALS: BP 97/62; PULSE 80; RESP 16; TEMP 36.8; O2SAT 96
[2025-07-13 21:54] LABS: Vancomycin, Random Level 13.9 ug/mL (0.0-15.0)
--- NOTE | 2025-07-13 22:35 | PCM.RX.CS ---
Consult Antibiotic Management Pharmacy has been consulted to manage selected antibiotic: Vancomycin Type of Intervention Type of Consult: Follow-up Suspected Infection Suspected Infection: Osteomyelitis Prior Doses of Antibiotics Prior Doses of Antibiotics Received/Current Regimen: dose currently being held due to a high trough Labs Labs: Sodium 141 mmol/L (133-145) 07/13/25 09:10 Potassium 3.5 mmol/L (3.3-5.1) 07/13/25 09:10 Chloride 109 mmol/L (98-108) H 07/13/25 09:10 Carbon Dioxide 24.6 mmol/L (21.0-32.0) 07/13/25 09:10 Anion Gap 8 (5-15) 07/13/25 09:10 BUN 10 mg/dL (4-19) 07/13/25 09:10 Creatinine 0.46 mg/dL (0.70-1.20) L 07/13/25 09:10 Est GFR (MDRD) Non-Af 127 (>60) 07/13/25 09:10 BUN/Creatinine Ratio 22.5 RATIO (10-20) H 07/13/25 09:10 Glucose 86 mg/dL (70-99) 07/13/25 09:10 Vancomycin Trough 23.0 ug/mL (5.0-15.0) H 07/13/25 09:10 Random Vancomycin 13.9 ug/mL (0.0-15.0) 07/13/25 21:00 Microbiology Microbiology: Microbiology 07/08/25 15:07 Bone - Sacral Bone Gram Stain - Final 07/08/25 15:07 Bone - Sacral Bone Wound Culture - Final Enterobacter cloacae complex 07/08/25 15:07 Bone - Sacral Bone Anaerobic Culture - Final No anaerobic bacteria isolated. 07/08/25 15:07 Tissue - Ischial Pressure Sore Gram Stain - Final 07/08/25 15:07 Tissue - Ischial Pressure Sore Wound Culture - Preliminary Acinetobacter baumannii 07/08/25 15:07 Tissue - Ischial Pressure Sore Anaerobic Culture - Preliminary No growth in 48 hours. 07/08/25 15:07 Tissue - Sacral Gram Stain - Final 07/08/25 15:07 Tissue - Sacral Wound Culture - Final Enterobacter cloacae complex 07/08/25 15:07 Tissue - Sacral Anaerobic Culture - Preliminary No growth in 48 hours. 07/08/25 15:07 Wound - Leg, Left Gram Stain - Final 07/08/25 15:07 Wound - Leg, Left Wound Culture - Final Enterobacter cloacae complex 07/08/25 15:07 Wound - Leg, Left Anaerobic Culture - Preliminary No growth in 48 hours. 07/06/25 10:33 Tissue Ulcer - Sacral Pressure Sore Gram Stain - Final 07/06/25 10:33 Tissue Ulcer - Sacral Pressure Sore Wound Culture - Final No growth aerobically. 07/06/25 10:33 Tissue Ulcer - Sacral Pressure Sore Anaerobic Culture - Final No growth in 5 days. 07/06/25 10:40 Bone - Ischial Bone Gram Stain - Final 07/06/25 10:40 Bone - Ischial Bone Wound Culture - Final No growth aerobically. 07/06/25 10:40 Bone - Ischial Bone Anaerobic Culture - Final No growth in 5 days. 07/06/25 10:36 Bone - Sacral Bone Gram Stain - Final 07/06/25 10:36 Bone - Sacral Bone Wound Culture - Final No growth aerobically. 07/06/25 10:36 Bone - Sacral Bone Anaerobic Culture - Final No growth in 5 days. 07/06/25 10:37 Tissue Ulcer - Ischial Pressure Sore Gram Stain - Final 07/06/25 10:37 Tissue Ulcer - Ischial Pressure Sore Wound Culture - Final Meth. resistant Staph. aureus 07/06/25 10:37 Tissue Ulcer - Ischial Pressure Sore Anaerobic Culture - Final No anaerobic bacteria isolated. Dosing Weight Weight used for dosin.4 kg Estimated Creatinine Clearance Estimated Creatinine Clearance: 190ml/min Goal Trough Goal Trough: 15-20 mcg/mL Pharmacy Plan for Drug Dosing Pharmacy Plan for Drug Dosing: The vanc random level drawn at 21:00 tonight was 13.9 mcg/ml. This is back below 20 so will restart at a newly calculated dose of 1000mg IV q12h. Will check a trough again before the 4th dose. Pharmacy Service will continue to monitor and adjust dosing as required. Follow-Up Labs Follow-Up Labs: Trough: Vancomycin Date/Time Labs Ordered Labs to be done on [date and time ordered]: 07/15/25 10:30
[2025-07-13] MEDS: 0.9% Saline Lock 10 ML Syringe IV (23:12)
[2025-07-13] MEDS: Vancomycin HCl 1,000 MG in 0.9% Normal Saline (250mL Bag) 250 ML 250 MG IV (23:12)
[2025-07-14 03:17] VITALS: BP 112/83; PULSE 84; RESP 16; TEMP 36.4; O2SAT 96
[2025-07-14] MEDS: hydrOXYzine PAM 25 MG Capsule 50 MG PO (04:01)
[2025-07-14 06:50] LABS: Hematocrit 25.8 % (40-54); Hemoglobin 7.9 g/dL (13.0-16.5)
[2025-07-14 09:23] VITALS: BP 108/84; PULSE 75; RESP 16; TEMP 36.9; O2SAT 95
[2025-07-14] MEDS: 0.9% Normal Saline (250mL Bag) 250 ML 15 ML IV (09:29)
[2025-07-14] MEDS: Lactobacillis Acidophilus 1 CAP PO (09:33)
[2025-07-14] MEDS: LACTASE 3,000 UNIT TABLET 3000 UNIT PO (09:34)
--- NOTE | 2025-07-14 09:51 | DS.PCM_ITS ---
Providers Date of Admission: 07/06/25 Primary Care Physician: TALIA CASTELAN MD Consultations 07/06/25 09:11 Consult: Hospitalist Routine Consulting Provider: Buddy Richardson Reason for Consult: Medical Comorbidities EMERGENT Consult: No Notified: Yes Date Notified: 07/06/25 Time Notified: 09:12 Method of Notification: Text 07/07/25 05:48 Consult: Onc/Wound/senior consultant Routine Comment: Reason for Consult:: sacral and ischial wounds 07/08/25 09:30 Consult: Infectious Disease Routine Consulting Provider: Helio Valle Reason for Consult: positive cultures on wounds EMERGENT Consult: No Notified: Yes Date Notified: 07/08/25 Time Notified: 09:30 Method of Notification: Text 07/09/25 13:46 Consult: Urology Routine Consulting Provider: Tyler Lovell Reason for Consult: Chronic indwelling catheter EMERGENT Consult: No MD Notified: Yes Date Notified: 07/09/25 Time Notified: 13:46 Method of Notification: Answering Service Reason For Visit: Debridement of sacral and right ischial wound with Diagnosis Discharge Diagnosis (1) Decubitus ulcer of ischial area, stage 4: Status: Acute Code(s): L89.304 - Pressure ulcer of unspecified buttock, stage 4 Qualifiers: Laterality: unspecified laterality Qualified Code(s): L89.304 - Pressure ulcer of unspecified buttock, stage 4 (2) Leg muscle spasm: Status: Acute Code(s): M62.838 - Other muscle spasm (3) Fever: Status: Acute Code(s): R50.9 - Fever, unspecified (4) Hypotension: Status: Acute Code(s): I95.9 - Hypotension, unspecified (5) Anemia: Status: Acute Code(s): D64.9 - Anemia, unspecified Plan POD #6 flap reconstruction with drain and wound VAC placement. POD#8 right sacral wound excision with irrigating wound VAC placement Pain control: continue chronic pain medication. Oxycodone Q4hrs as needed for pain for 1 week with plans to wean off in the next week or so or sooner if able to tolerate. incision care: Incisional wound VAC for 1 week. Drain care: Record output per shift and strip drain and bring log. Per ID: Plan on 6 weeks iv vanc and erta and po minocycline with weekly labs at discharge (ordered by ID). Stop date 08/22/25. ID followup in 2-3 weeks. DVT ppx: SCD's SQ Lovenox resumed 07/09, rx for 1 week. Dispo: DC today to SNF. Medications at Discharge Home Medications baclofen 20 mg tablet 20 mg PO 4X/DAY 05/11/25 gabapentin 600 mg tablet 1,200 mg PO TID 05/11/25 hydroxyzine HCl 25 mg tablet 50 mg PO 4X/DAY PRN PRN anxiety 05/11/25 oxycodone myristate 13.5 mg capsule sprinkle extend release 12hr(DON'T CRUSH) (Xtampza ER) 13.5 mg PO Q12H pain 05/11/25 verapamil 120 mg tablet 120 mg PO DAILY 06/26/25 Lactobacillus acidophilus 1 billion cell capsule 1,000 mmu cells PO DAILY probiotic 07/08/25 simethicone 125 mg capsule (Gas Relief (simethicone)) 125 mg PO DAILY PRN gas 07/08/25 ertapenem 1 gram solution for injection 1 g IV DAILY 40 days 07/13/25 minocycline 100 mg capsule 200 mg (2 x 100 mg) PO BID 40 days #160 caps 07/13/25 vancomycin 1,000 mg intravenous injection 1 g IV Q12H 40 days #80 ea 07/13/25 enoxaparin 40 mg/0.4 mL subcutaneous syringe 40 mg (0.4 mL) subcut DAILY 7 days #2.8 mL 07/14/25 lactase 3,000 unit tablet (Dairy Relief) 3,000 unit PO TIDCM #30 tabs 07/14/25 oxycodone 5 mg tablet 5 mg PO Q4H PRN PRN Pain Score 6-10 7 days #42 tabs 07/14/25 Hospital Course Operations - (POD #6 flap reconstruction with drain and wound VAC placement. POD#8 right sacral wound excision with irrigating wound VAC placement ) Summary of Care Provided Minutes Spent on Discharge: 30 Physical Exam Narrative Afebrile/VSS. Lying on his left side Seen with [place] wound RN Dressing without strikethrough bleeding. Sutures are intact, no erythema, induration or drainage of both incisional sites. No passive or active drainage. Drain output 25ml total between 2 LOLIS drains. Left in place. Wound RN will return to place incisional wound VAC x2. SCD's in place. No leg swelling. Avalos catheter patent Weight / BMI Weight Weight: 175 lb 0.012 oz Body Mass Index (BMI) 25.8 ABG / Lab / Microbiology Data 07/14/25 06:24 07/13/25 09:10 Laboratory: Laboratory Results - last 24 hr 07/13/25 09:10: Sodium 141, Potassium 3.5, Chloride 109 H, Carbon Dioxide 24.6, Anion Gap 8, BUN 10, Creatinine 0.46 L, Estim Creat Clear Calc 189.98, Est GFR (MDRD) Non-Af 127, BUN/Creatinine Ratio 22.5 H, Glucose 86, Calcium 8.2, V ancomycin Trough 23.0 H 07/13/25 21:00: Random Vancomycin 13.9 07/14/25 06:24: Hgb 7.9 L, Hct 25.8 L Microbiology: Microbiology 07/08/25 15:07 Tissue - Ischial Pressure Sore Gram Stain - Final 07/08/25 15:07 Tissue - Ischial Pressure Sore Wound Culture - Preliminary Acinetobacter baumannii 07/08/25 15:07 Tissue - Ischial Pressure Sore Anaerobic Culture - Final No growth in 5 days. 07/08/25 15:07 Tissue - Sacral Gram Stain - Final 07/08/25 15:07 Tissue - Sacral Wound Culture - Final Enterobacter cloacae complex 07/08/25 15:07 Tissue - Sacral Anaerobic Culture - Final No growth in 5 days. 07/08/25 15:07 Wound - Leg, Left Gram Stain - Final 07/08/25 15:07 Wound - Leg, Left Wound Culture - Final Enterobacter cloacae complex 07/08/25 15:07 Wound - Leg, Left Anaerobic Culture - Final No growth in 5 days. 07/08/25 15:07 Bone - Sacral Bone Gram Stain - Final 07/08/25 15:07 Bone - Sacral Bone Wound Culture - Final Enterobacter cloacae complex 07/08/25 15:07 Bone - Sacral Bone Anaerobic Culture - Final No anaerobic bacteria isolated. 07/06/25 10:33 Tissue Ulcer - Sacral Pressure Sore Gram Stain - Final 07/06/25 10:33 Tissue Ulcer - Sacral Pressure Sore Wound Culture - Final No growth aerobically. 07/06/25 10:33 Tissue Ulcer - Sacral Pressure Sore Anaerobic Culture - Final No growth in 5 days. 07/06/25 10:40 Bone - Ischial Bone Gram Stain - Final 07/06/25 10:40 Bone - Ischial Bone Wound Culture - Final No growth aerobically. 07/06/25 10:40 Bone - Ischial Bone Anaerobic Culture - Final No growth in 5 days. 07/06/25 10:36 Bone - Sacral Bone Gram Stain - Final 07/06/25 10:36 Bone - Sacral Bone Wound Culture - Final No growth aerobically. 07/06/25 10:36 Bone - Sacral Bone Anaerobic Culture - Final No growth in 5 days. 07/06/25 10:37 Tissue Ulcer - Ischial Pressure Sore Gram Stain - Final 07/06/25 10:37 Tissue Ulcer - Ischial Pressure Sore Wound Culture - Final Meth. resistant Staph. aureus 07/06/25 10:37 Tissue Ulcer - Ischial Pressure Sore Anaerobic Culture - Final No anaerobic bacteria isolated. D/C Instructions DC O2, CPAP, BIPAP Needs Home O2 Discharge instructions: No Meaningful Use Info Meaningful Use Meaningful Use Diagnoses (Choose all that apply): None applicable Discharge Plan Admission Admit Date/Time: 07/06/25 08:02 Primary Reason for Your Visit: Debridement and flap recon for sacral wound and osteomyelitis Attending Provider: Brennan Vila Primary Care Provider: TALIA CASTELAN Consulting Providers: Helio Valle; Tyler Lovell; Brennan Vila; Helio Alejandro Instructions Additional Instructions / Restrictions: Operations Performed: Debridement and flap recon for sacral wound and osteomyelitis Instructions for My Care at Home or Healthcare Facility The following instructions will help you know what to expect in the days following surgery. These are general instructions. Your surgeon and therapist may give you special instructions, which vary to some degree based on your specific procedure -- follow those as directed. Do not, however, hesitate to call if you have any questions or concerns. Dressing Care/Wound Care * You have an incisional wound VAC in place. No weight on the incision, change positions every 2 hours. * You also have 2 LOLIS drains. Record output every shift and strip drains. Bring the paperwork with you to your follow up appointment. * If the wound VAC loses seal have nursing staff reinforce with Tegaderm dressing. Be sure to charge the device if battery is running low. Contact plastics office if there's any issues with wound VAC. [ ] ? Activities * Encourage incentive spirometry * Working with PT and OT at the facility. * No exercises requiring putting weight on the incision. Pain Control/Medications * You are prescribed 1 week course of Oxycodone as needed pain in addition to your chronic pain meds. Plan is to wean off the Oxycodone in the next week or 2. * You are also prescribed antibiotics per infectious disease. * You are prescribed 1 week course of subcutaneous Lovenox for DVT prevention. * If you received an anesthetic block, your hand or arm may be numb for several hours. You will be discharged to home with medications, including an oral pain medication (analgesic). Rest and elevation are still one of the most important factors for pain control. Take your pain medication as needed, but do not wait for the pain to become out of control. * For severe pain, you may take prescription pain medication as directed, but please note that this may also contain Tylenol (e.g. Percocet). Do not take more than 4000mg of Tylenol (acetaminophen) from all sources daily.? * Pain medication may cause some lethargy, nausea, and or constipation. You should not drive/operate dangerous machinery while taking these medications. If these or other symptoms become significantly problematic, please your surgeon's office. * If prescribed oral antibiotics (Keflex, Clindamycin, or others), please take prescription for full duration as instructed. You should not have any pills remaining once completed (refills are written for your convenience should the course need to be extended, but generally they are not required). Diet (what I can eat): Resume normal diet as before Follow up * We will follow up with you 1 week in wound center with Dr. Alejandro. We will call you with time and date. Follow-up appointment reminders:? (A list of any scheduled appointments is at the end of this document)? At your earliest convenience, please call [phone] to confirm/schedule a follow-up appointment with [ ] in clinic. When to call your surgeon: * If any signs of surgical site infection develop: redness, pus, pain, increased swelling or foul odor at the incision site, fever, cold and clammy skin, or confusion. * Consistent temperature above 101?F (38.3?C). * The affected area gets swollen or much more painful. * You have excessive bleeding from surgical site (soaking through). If you experience difficulty breathing and/or shortness of breath, seek immediate medical attention. If experiencing any of the above complications or if you have any questions, call [phone] Discharge Orders/Prescriptions Prescriptions: New minocycline 100 mg Capsule 200 mg PO BID 40 Days Qty: 160 0RF ertapenem 1 gram recon soln 1 g IV DAILY 40 Days Rx Instructions: Stop date 08/22/25. Weekly bmp, cbc, LFT, vanc trough, and esr. Fax to [phone]. Routine picc care per protocol. vancomycin 1,000 mg recon soln 1 g IV Q12H 40 Days Qty: 80 0RF Rx Instructions: Stop date 08/22/25. Weekly bmp, cbc, LFT, vanc trough, and esr. Fax to [phone]. Routine picc care per protocol. enoxaparin 40 mg/0.4 mL Syringe 40 mg subcut DAILY 7 Days Qty: 2.8 0RF lactase [Dairy Relief] 3,000 unit Tablet 3,000 unit PO TIDCM Qty: 30 0RF oxycodone 5 mg Tablet 5 mg PO Q4H PRN PRN (Reason: Pain Score 6-10) 7 Days Qty: 42 0RF Rx Instructions: For acute postoperative pain. Continued gabapentin 600 mg tablet 1,200 mg PO TID baclofen 20 mg tablet 20 mg PO 4X/DAY hydroxyzine HCl 25 mg tablet 50 mg PO 4X/DAY PRN PRN (Reason: anxiety) Xtampza ER 13.5 mg cap,sprinkl,ER12hr(DONT CRUSH) 13.5 mg PO Q12H verapamil 120 mg tablet 120 mg PO DAILY simethicone [Gas Relief (simethicone)] 125 mg capsule 125 mg PO DAILY PRN (Reason: gas) Lactobacillus acidophilus 1 billion cell capsule 1,000 mmu cells PO DAILY Referrals / Follow Up: TALIA CASTELAN MD [Primary Care Provider, Family Practice] Disposition Disposition (needs filled in before D/C Order can be placed): Intermediate Facility Charges/Coding Procedures Integumentary [id number]: [id number] Global Visit
--- NOTE | 2025-07-14 10:03 | PN.HOSP_ITS ---
Subjective Subjective No issues overnight, awaiting pre-CERT Objective Data Objective Data Vital Signs: Vital Signs Temp Pulse Resp BP Pulse Ox O2 Del Method O2 Flow Rate 98.4 F 75 16 108/84 H 95 Room Air 6 07/14/25 09:23 07/14/25 09:23 07/14/25 09:23 07/14/25 09:23 07/14/25 09:23 07/14/25 09:23 07/08/25 17:20 Oxygen Flow Rate (L/min) 6 Oxygen Delivery Method Room Air Weight: 175 lb 0.012 oz Body Mass Index (BMI) 25.8 Intake & Output: Intake and Output for Last 24 Hours 07/13/25 07/14/25 07/15/25 03:59 03:59 03:59 Intake Total 2108.2 / 2108.2 3137.2 / 3137.2 622.4 / 622.4 Output Total 2600 / 2600 3255 / 3255 610 / 610 Balance -491.8 / -491.8 -117.8 / -117.8 12.4 / 12.4 Lab / Micro Data 07/14/25 06:24 07/13/25 09:10 Labs: Laboratory Results - last 24 hr 07/13/25 21:00: Random Vancomycin 13.9 07/14/25 06:24: Hgb 7.9 L, Hct 25.8 L Micro: Microbiology 07/08/25 15:07 Tissue - Ischial Pressure Sore Gram Stain - Final 07/08/25 15:07 Tissue - Ischial Pressure Sore Wound Culture - Preliminary Acinetobacter baumannii 07/08/25 15:07 Tissue - Ischial Pressure Sore Anaerobic Culture - Final No growth in 5 days. 07/08/25 15:07 Tissue - Sacral Gram Stain - Final 07/08/25 15:07 Tissue - Sacral Wound Culture - Final Enterobacter cloacae complex 07/08/25 15:07 Tissue - Sacral Anaerobic Culture - Final No growth in 5 days. 07/08/25 15:07 Wound - Leg, Left Gram Stain - Final 07/08/25 15:07 Wound - Leg, Left Wound Culture - Final Enterobacter cloacae complex 07/08/25 15:07 Wound - Leg, Left Anaerobic Culture - Final No growth in 5 days. 07/08/25 15:07 Bone - Sacral Bone Gram Stain - Final 07/08/25 15:07 Bone - Sacral Bone Wound Culture - Final Enterobacter cloacae complex 07/08/25 15:07 Bone - Sacral Bone Anaerobic Culture - Final No anaerobic bacteria isolated. 07/06/25 10:33 Tissue Ulcer - Sacral Pressure Sore Gram Stain - Final 07/06/25 10:33 Tissue Ulcer - Sacral Pressure Sore Wound Culture - Final No growth aerobically. 07/06/25 10:33 Tissue Ulcer - Sacral Pressure Sore Anaerobic Culture - Final No growth in 5 days. 07/06/25 10:40 Bone - Ischial Bone Gram Stain - Final 07/06/25 10:40 Bone - Ischial Bone Wound Culture - Final No growth aerobically. 07/06/25 10:40 Bone - Ischial Bone Anaerobic Culture - Final No growth in 5 days. 07/06/25 10:36 Bone - Sacral Bone Gram Stain - Final 07/06/25 10:36 Bone - Sacral Bone Wound Culture - Final No growth aerobically. 07/06/25 10:36 Bone - Sacral Bone Anaerobic Culture - Final No growth in 5 days. 07/06/25 10:37 Tissue Ulcer - Ischial Pressure Sore Gram Stain - Final 07/06/25 10:37 Tissue Ulcer - Ischial Pressure Sore Wound Culture - Final Meth. resistant Staph. aureus 07/06/25 10:37 Tissue Ulcer - Ischial Pressure Sore Anaerobic Culture - Final No anaerobic bacteria isolated. Physical Exam Narrative General: Alert, Oriented x3, Cooperative, No apparent distress HEENT: Atraumatic, PERRLA, EOMI, Normocephalic Oral: Moist Mucosa Neck: Supple, No JVD Lungs: Diminished, Normal air movement, No rhonchi, No wheeze, No rales Cardiovascular: Regular rate, Regular Rhythm, Normal S1, Normal S2, No murmurs Abdomen: Soft, Non Tender, Non-Distended, No Hepato-splenomegaly Extremities: No edema, Capillary Refill Less than 3 Seconds Skin: No rashes, No breakdown, pale Musculoskeletal: No Tenderness to Palpation of Joints or Extremities Neurological: No new focal neurological deficits, chronic neurological findings Psych/Mental Status: Normal Affect, Appropriate Assessment & Plan Assessment/Plan (1) Decubitus ulcer of ischial area, stage 4: QUALIFIERS: Laterality: unspecified laterality Qualified Code(s): L89.304 - Pressure ulcer of unspecified buttock, stage 4 (2) Leg muscle spasm: (3) Fever: (4) Hypotension: (5) Anemia: PLAN: Plan Decubitus ulcer of ischial area, stage IV -Status post excision of stage IV ulcer down to bone form 8 cm and excision of right ischial ulcer down to the bone stage IV 4 to 3 cm on 07/06. Placement of irrigating wound VAC over the wounds. -Pt underwent right gluteal myocutaneous flap on 07/08. -Wound culture growing out gram negative rods. -Abx w vanc, cefiderocol, flagyl and po minocycline. Per ID, planning for 6 weeks IV antibiotics on discharge. -IVF dc'ed on 07/11 as pt is on a regular diet. -ID following. 07/13/2025: Appreciate infectious disease and recommendations. 07/14/2025: Pending pre-CERT but he is medically ready Leg muscle spasm -Continue baclofen, gabapentin, scheduled oxycodone (his home regimen) -Added scheduled acetaminophen. -Pt endorses that his pain has been controlled with medications. The hydromorphone has been contributing to hypotension so was dc'ed. Fever -post-operatively -did have MRSA on wound culture on the . -continue abx as above -ID following as above. Hypotension -post operatively overall improved. -caution with narcotics Anemia -acute blood loss. Hg 07/02 was 9.9, now down to 7.3 after 2 surgeries. Post- operative blood loss. -Hemoglobin 7.1 on 07/12. Continue to monitor CBC daily and can transfuse for hemoglobin less than 7. 07/13/2025: If he continues to be low tomorrow we will obtain iron studies, today's hemoglobin 7.7 07/14/2025: Hemoglobin today 7.9 pending pre-CERT, monitor as an outpatient Paraplegia: Complicates care and recovery. Hypertension: Continue verapamil Chronic Avalos. Patient has Avalos catheter change intermittently. Apparently the bulb of the catheter is not within the urethra. Dr. Alejandro reached out to urology who advised for the patient to follow-up with his regular urologist as outpatient as this was placed as outpatient. The catheter is draining fine so we will leave it as is for now but if it does become obstructed then that will either need to be replaced or urology will need to be formally consulted. DVT: Lovenox Charges/Coding Visit Charges Inpatient E&M: 77066 Subs Hosp L2
--- NOTE | 2025-07-14 10:19 | TREXTCAR_ITS ---
Diet Diet Order/Speech Therapy: INPATIENT Hospital Diet / Speech Therapy Order(s) 07/08/25 16:49 Diet: Regular - General Type of Dietary Supplement:: Ensure Plus High Protein Diet Comments: 240mL vanilla EPHP w/meals DC O2, CPAP, BIPAP needs Home O2 Discharge instructions: No Wound(s) sacral: Wound Type: Surgical Incision right ischial: Wound Type: Surgical Incision Suggestions for Active Care Change Position every (hours): 2 (hours) Positions to Avoid: Supine and sitting straight on his incisions Problem/Diagnosis (1) Decubitus ulcer of ischial area, stage 4: Status: Acute Code(s): L89.304 - Pressure ulcer of unspecified buttock, stage 4 (2) Leg muscle spasm: Status: Acute Code(s): M62.838 - Other muscle spasm (3) Fever: Status: Acute Code(s): R50.9 - Fever, unspecified (4) Hypotension: Status: Acute Code(s): I95.9 - Hypotension, unspecified (5) Anemia: Status: Acute Code(s): D64.9 - Anemia, unspecified Plan POD #6 flap reconstruction with drain and wound VAC placement. POD#8 right sacral wound excision with irrigating wound VAC placement Pain control: continue chronic pain medication. Oxycodone Q4hrs as needed for pain for 1 week with plans to wean off in the next week or so or sooner if able to tolerate. incision care: Incisional wound VAC for 1 week. Drain care: Record output per shift and strip drain and bring log. Per ID: Plan on 6 weeks iv vanc and erta and po minocycline with weekly labs at discharge (ordered by ID). Stop date 08/22/25. ID followup in 2-3 weeks. DVT ppx: SCD's SQ Lovenox resumed 07/09, rx for 1 week. Dispo: DC today to SNF. Allergies/Procedures Done in Hospital Allergies adhesive tape Allergy (Verified 07/08/25 12:21) Other did not handle well morphine Allergy (Verified 07/08/25 12:21) Other pt reports he did not handle it well venlafaxine (From Effexor) Allergy (Verified 07/08/25 12:21) Other pt states he did not handle them well Type of Care/Length of Stay Estimated LOS: Convalescent Care Less Than 30 days Type of Care Needed: Skilled Rehab Potential: Fair Prognosis: Good Additional Orders/Day of Discharge Day of Discharge: 07/14/25 Dietary and Speech Recommendations Dietitian Recommendations/Changes: Continue Regular diet to optimize oral intakes. Continue 240mL Ensure Plus High Protein TID with meals to provide supplemental energy and protein for wound healing. Recommend Regular, high protein diet at discharge along with high protein ONS 2- 3x daily to promote wound healing. Follow Up Care When: 1 week Please Follow Up With: Helio Alejandro MD Discharge Plan Admission Admit Date/Time: 07/06/25 08:02 Primary Reason for Your Visit: Debridement and flap recon for sacral wound and osteomyelitis Attending Provider: Brennan Vila Primary Care Provider: TALIA CASTLEAN Consulting Providers: Helio Valle; Tyler Lovell; Brennan Vila; Helio Alejandro Instructions Additional Instructions / Restrictions: Operations Performed: Debridement and flap recon for sacral wound and osteomyelitis Instructions for My Care at Home or Healthcare Facility The following instructions will help you know what to expect in the days following surgery. These are general instructions. Your surgeon and therapist may give you special instructions, which vary to some degree based on your specific procedure -- follow those as directed. Do not, however, hesitate to call if you have any questions or concerns. Dressing Care/Wound Care * You have an incisional wound VAC in place. No weight on the incision, change positions every 2 hours. * You also have 2 LOLIS drains. Record output every shift and strip drains. Bring the paperwork with you to your follow up appointment. * If the wound VAC loses seal have nursing staff reinforce with Tegaderm dressing. Be sure to charge the device if battery is running low. Contact plastics office if there's any issues with wound VAC. [ ] ? Activities * Encourage incentive spirometry * Working with PT and OT at the facility. * No exercises requiring putting weight on the incision. Pain Control/Medications * You are prescribed 1 week course of Oxycodone as needed pain in addition to your chronic pain meds. Plan is to wean off the Oxycodone in the next week or 2. * You are also prescribed antibiotics per infectious disease. * You are prescribed 1 week course of subcutaneous Lovenox for DVT prevention. * If you received an anesthetic block, your hand or arm may be numb for several hours. You will be discharged to home with medications, including an oral pain medication (analgesic). Rest and elevation are still one of the most important factors for pain control. Take your pain medication as needed, but do not wait for the pain to become out of control. * For severe pain, you may take prescription pain medication as directed, but please note that this may also contain Tylenol (e.g. Percocet). Do not take more than 4000mg of Tylenol (acetaminophen) from all sources daily.? * Pain medication may cause some lethargy, nausea, and or constipation. You should not drive/operate dangerous machinery while taking these medications. If these or other symptoms become significantly problematic, please your surgeon's office. * If prescribed oral antibiotics (Keflex, Clindamycin, or others), please take prescription for full duration as instructed. You should not have any pills r emaining once completed (refills are written for your convenience should the course need to be extended, but generally they are not required). Diet (what I can eat): Resume normal diet as before Follow up * We will follow up with you 1 week in wound center with Dr. Alejandro. We will call you with time and date. Follow-up appointment reminders:? (A list of any scheduled appointments is at the end of this document)? At your earliest convenience, please call [phone] to confirm/schedule a follow-up appointment with [ ] in clinic. When to call your surgeon: * If any signs of surgical site infection develop: redness, pus, pain, increased swelling or foul odor at the incision site, fever, cold and clammy skin, or confusion. * Consistent temperature above 101?F (38.3?C). * The affected area gets swollen or much more painful. * You have excessive bleeding from surgical site (soaking through). If you experience difficulty breathing and/or shortness of breath, seek immediate medical attention. If experiencing any of the above complications or if you have any questions, call [phone] Discharge Orders/Prescriptions Prescriptions: New minocycline 100 mg Capsule 200 mg PO BID 40 Days Qty: 160 0RF ertapenem 1 gram recon soln 1 g IV DAILY 40 Days Rx Instructions: Stop date 08/22/25. Weekly bmp, cbc, LFT, vanc trough, and esr. Fax to [phone]. Routine picc care per protocol. vancomycin 1,000 mg recon soln 1 g IV Q12H 40 Days Qty: 80 0RF Rx Instructions: Stop date 08/22/25. Weekly bmp, cbc, LFT, vanc trough, and esr. Fax to [phone]. Routine picc care per protocol. enoxaparin 40 mg/0.4 mL Syringe 40 mg subcut DAILY 7 Days Qty: 2.8 0RF lactase [Dairy Relief] 3,000 unit Tablet 3,000 unit PO TIDCM Qty: 30 0RF oxycodone 5 mg Tablet 5 mg PO Q4H PRN PRN (Reason: Pain Score 6-10) 7 Days Qty: 42 0RF Rx Instructions: For acute postoperative pain. Continued gabapentin 600 mg tablet 1,200 mg PO TID baclofen 20 mg tablet 20 mg PO 4X/DAY hydroxyzine HCl 25 mg tablet 50 mg PO 4X/DAY PRN PRN (Reason: anxiety) Xtampza ER 13.5 mg cap,sprinkl,ER12hr(DONT CRUSH) 13.5 mg PO Q12H verapamil 120 mg tablet 120 mg PO DAILY simethicone [Gas Relief (simethicone)] 125 mg capsule 125 mg PO DAILY PRN (Reason: gas) Lactobacillus acidophilus 1 billion cell capsule 1,000 mmu cells PO DAILY Referrals / Follow Up: TALIA CASTELAN MD [Primary Care Provider, [facility]] Disposition Disposition (needs filled in before D/C Order can be placed): Nursing Home Facility (1) Decubitus ulcer of ischial area, stage 4 Qualifiers: Laterality: unspecified laterality Qualified Code(s): L89.304 - Pressure ulcer of unspecified buttock, stage 4
--- NOTE | 2025-07-14 10:47 | PHA.DC.MR.R ---
Pharmacy [place] Med Reconciliation Pharmacy Service has performed discharge medication reconciliation for this patient. The patient's discharge medication list was reviewed for discrepancies and discrepancies were resolved. Medications at Discharge Home Medications baclofen 20 mg tablet 20 mg PO 4X/DAY 05/11/25 gabapentin 600 mg tablet 1,200 mg PO TID 05/11/25 hydroxyzine HCl 25 mg tablet 50 mg PO 4X/DAY PRN PRN anxiety 05/11/25 oxycodone myristate 13.5 mg capsule sprinkle extend release 12hr(DON'T CRUSH) (Xtampza ER) 13.5 mg PO Q12H pain 05/11/25 verapamil 120 mg tablet 120 mg PO DAILY 06/26/25 Lactobacillus acidophilus 1 billion cell capsule 1,000 mmu cells PO DAILY probiotic 07/08/25 simethicone 125 mg capsule (Gas Relief (simethicone)) 125 mg PO DAILY PRN gas 07/08/25 ertapenem 1 gram solution for injection 1 g IV DAILY 40 days 07/13/25 minocycline 100 mg capsule 200 mg (2 x 100 mg) PO BID 40 days #160 caps 07/13/25 vancomycin 1,000 mg intravenous injection 1 g IV Q12H 40 days #80 ea 07/13/25 enoxaparin 40 mg/0.4 mL subcutaneous syringe 40 mg (0.4 mL) subcut DAILY 7 days #2.8 mL 07/14/25 lactase 3,000 unit tablet (Dairy Relief) 3,000 unit PO TIDCM #30 tabs 07/14/25 oxycodone 5 mg tablet 5 mg PO Q4H PRN PRN Pain Score 6-10 7 days #42 tabs 07/14/25
--- NOTE | 2025-07-14 10:49 | CASEMGMT ---
RN CM NOTE: Discharge order is in. Per Leatha FARMER, she states she is removing one of the LOLIS drains and asks for LOLIS drain output be recorded @ the SNF, recorded, and taken w/pt to f/u appt @ Dr Alejandro's. Message sent to [facility] to notify them of same. 7,000 in HENS completed, printed, and given to jadon Silvestre review assistant. Liza VILLAN RN CM
--- NOTE | 2025-07-14 11:00 | NURSING ---
phoned [phone] to give nurse to nurse report. spoke with couple different staff members who keep asking for said nurse to wait on hold. over 11 minutes spent on hold. phone call ended. will attempt to give nurse to nurse at another time.
[2025-07-14] MEDS: Ertapenem Sod 1 GM in 0.9% Normal Saline (50mL MB+) 50 ML IV (11:02)
[2025-07-14] MEDS: Vancomycin HCl 1,000 MG in 0.9% Normal Saline (250mL Bag) 250 ML 250 MG IV (11:03)
[2025-07-14] MEDS: 0.9% Saline Lock 10 ML Syringe IV (11:03)
--- NOTE | 2025-07-14 11:25 | CASEMGMT ---
Discharge Planning Discharge orders, signed med list, and transport time sent via [facility] to [facility]. Physicians will transport pt by cot at 2p. Nursing, RN CM, pt, and his mother updated. Nirmala Ennis DC Planning Asst.
--- NOTE | 2025-07-14 11:47 | WOUNDNOTE ---
wound photo: sacrum
--- NOTE | 2025-07-14 11:48 | WOUNDNOTE ---
wound photo: right ischium
--- NOTE | 2025-07-14 13:29 | CASEMGMT ---
ADRIANA TRINIDAD NOTE: Call received from LAURA @ [facility]. Made aware ertapenem IV has been given today and also Vanco IV was last given this AM. Also, reviewed bed positioning routine order w/her, as pt is not to lay on ulcers, but is to lay on his side on pressure offloading bed as best as possible & turn Q 4 hrs & PRN, as best as possible. Liza VILLAN RN CM
[2025-07-14 13:36] VITALS: BP 105/65; PULSE 67; RESP 16; TEMP 36.8; O2SAT 94
== END 2025-07-14 15:15 | disposition skilled nursing facility (03) | DRG 574 ==
LOC: MS3 07-07 08:06 → SDC 07-07 09:04 → AC 07-07 09:05 → SDC 07-07 09:05 → MS3 07-07 09:05
PROVIDERS: Hospitalist; Internal Medicine Infectious Disease; Admitting Provider Surgery Plastic and Reconstructive Surgery; PCP Internal Medicine; Referring Provider Surgery Plastic and Reconstructive Surgery; Visit Provider Family Medicine
PROC: 0QB10ZZ Excision of Sacrum, Open Approach (ICD-10-PCS; principal; 2025-07-06 10:15)
PROC: 0JX90ZC Transfer Buttock Subcutaneous Tissue and Fascia with Skin, Subcutaneous Tissue and Fascia, Open Approach (ICD-10-PCS; principal; 2025-07-08 12:35)
DX: L89.154 Pressure ulcer of sacral region, stage 4 (principal); M86.651 Other chronic osteomyelitis, right thigh; G82.20 Paraplegia, unspecified; D62 Acute posthemorrhagic anemia; L89.314 Pressure ulcer of right buttock, stage 4; B95.2 Enterococcus as the cause of diseases classified elsewhere; I10 Essential (primary) hypertension; Z89.431 Acquired absence of right foot; I95.81 Postprocedural hypotension; M62.838 Other muscle spasm; B95.62 Methicillin resistant Staphylococcus aureus infection as the cause of diseases classified elsewhere; B96.83 Acinetobacter baumannii as the cause of diseases classified elsewhere; Z96.0 Presence of urogenital implants; Z79.899 Other long term (current) drug therapy
CPT/HCPCS: 36415; 36569; 80048; 80053; 80202; 83735; 84100; 85014; 85018; 85025; 85027; 87015; 87070; 87075; 87077; 87102; 87116; 87176; 87186; 87205; 87206; 88305; 88311; 93005; 94762; 97162; 97167; 97802; 97803; A4216; J0696; J0699; J2405

== ENCOUNTER 2025-07-27 10:30 | Outpatient (RCR) | payer MEDICARE, MEDICAID, SELFPAY ==
--- NOTE | 2025-07-21 10:07 | WC ---
Spoke to a Meredith at [facility] in [place] [phone] regarding patient's appt next week with Dr Alejandro who hasn't been able to see patient since surgery due to cost of transportation from [place]. Meredith states that it is 2K to bring patient here. Dr Alejandro needs to see patient since he is still in global period and did his surgery. As of now, [facility] will send patient next week, cover the cost and have in house physician and wound nurse monitor patient until he is discharged to home. Dr Alejandro verbalizes understanding and stressing that patient remains offloading site and will determine after his visit next week if he can transition to sitting protocols. Meredith was also asked if someone at their facility could keep Dr Alejandro informed via calls/sending photos etc. Meredith stated that was an option too.
[2025-07-27 11:30] VITALS: BP 124/86; PULSE 87; RESP 16; TEMP 36.2
--- NOTE | 2025-07-27 11:58 | PN.SURG_ITS ---
Subjective Subjective Operative Information Date of Procedure: 07/08/25 Pre-Operative Diagnosis: Right ischial pressure sore, stage IV Sacral pressure sore, stage IV Post-Operative Diagnosis: Same Surgery/Procedure Performed: 1) Right gluteus jaqueline myocutaneous rotation flap for sacral pressure ulcer flap reconstruction 2) Closure of right ischial wound with local fasciocutaneous flap (skin flap closure of ischial pressure wound) steward/stewardess club car: Yes Certified Legal Secretary Specialist: Leatha Neal Current encounter, 27 July 2025 Patient is 2-1/2 weeks out from flap closure of the right ischial pressure sore and the sacral pressure sore Patient has been in a nursing facility and reports good pressure offloading overall. Reports some nausea recently Objective Data Objective Data Vital Signs: Vital Signs Temp Pulse Resp BP O2 Del Method 97.1 F L 87 16 124/86 H Room Air 07/27/25 11:30 07/27/25 11:30 07/27/25 11:30 07/27/25 11:30 07/27/25 11:30 Oxygen Delivery Method Room Air Physical Exam Narrative Ischial wound completely reepithelialized after reconstruction (sutures removed) Sacral wound with an area of 1 x 3 cm of dehiscence over the distal edge of the flap over the sacral bone, full-thickness down to the bone. Otherwise the flap healed into place No fluid collections and no signs of infection There is some skin maceration and excoriation on the right buttocks consistent with pressure and shearing forces Resp normal respiratory effort Cardio regular rate GI GI Narrative: Bag distended with gas Abdomen is soft No guarding and no overall tenderness to palpation Narrative: Clear yellow urine Assessment & Plan Assessment/Plan (1) Decubitus ulcer of ischial area, stage 4: QUALIFIERS: Laterality: unspecified laterality Qualified Code(s): L89.304 - Pressure ulcer of unspecified buttock, stage 4 PLAN: Healed (2) Ulcer of sacral region, stage 4: PLAN: Area of dehiscence Pack 3 times per day with Dakin's wet to dry dressings Ordering wound VAC for 3 times per week application Continue pressure offloading (no sitting) Follow-up with me in 2 weeks Charges/Coding Procedures Integumentary [id number]: [id number] Global Visit
--- NOTE | 2025-07-28 09:27 | WC ---
PHOTO-RIGHT BUTTOCKS 07/27/25
== END 2025-08-02 23:59 | disposition home or self-care (01) ==
LOC: WC 10:30
PROVIDERS: PCP Internal Medicine; Referring Provider Internal Medicine; Visit Provider Surgery Plastic and Reconstructive Surgery
DX: L89.314 Pressure ulcer of right buttock, stage 4 (principal); L89.154 Pressure ulcer of sacral region, stage 4
CPT/HCPCS: 99214; G0463